=== PATIENT | male | born 1960 | race Caucasian/White ===

== ENCOUNTER 2016-11-10 19:30 | Inpatient (IN) | payer MEDICARE, MEDICAID ==
[~2016-11-10] VITALS: Ht 157.5 cm; Wt 60.9 kg
[~2016-11-10 19:30] MED LIST: ACET-784 PR; ALBU0.212 NEB; CALC-6 GT; DIAZ5 GT; DSSL GT; FOLI1TAB24 GT; GLYB2.5T5 GT; LEVE100S7 GT; METO25 GT; MIRALAX GT; OMEP20 GT; PROMVCC5L GT; SENN8.6T90 GT
[2016-11-10 19:57] LABS: GLUCOSE,POINT OF CARE 112 MG/DL (70-110)
[2016-11-10] MEDS ORDERED: VITAD1000 GT (20:24)
[2016-11-10] MEDS ORDERED: [UNRECOGNIZED DRUG - CODE] PO (20:24)
[2016-11-10] MEDS ORDERED: ESOM20CA31 GT (20:24)
[2016-11-10] MEDS ORDERED: ACETAMINOPHEN 650 MG RECTAL SUPPOSITORY PR ONE ×2 (21:15)
[2016-11-10] MEDS ORDERED: SODIUM CHLORIDE 0.9% 1,000 ML IV ONE (21:30)
[2016-11-10 21:46] LABS: EOSINOPHILS % (AUTO) 0.1 % (1.0-6.0); HEMOGLOBIN 14.9 g/dL (13.5-17.5); LYMPHOCYTES # (AUTO) 0.4 K/uL (1.0-4.8); MEAN CORPUSCULAR HEMOGLOBIN 32.5 pg (26.0-34.0); MEAN CORPUSCULAR VOLUME 98 fL (80-100); MONOCYTES # (AUTO) 0.7 K/uL (0.1-1.0); MONOCYTES % (AUTO) 10.6 % (2.0-9.0); NEUTROPHILS # (AUTO) 5.3 K/uL (1.8-7.7); NEUTROPHILS % (AUTO) 83.3 % (40.0-70.0); PLATELET COUNT (AUTO) 131 K/uL (150-450); RED BLOOD CELL COUNT(AUTO) 4.57 MIL/uL (4.50-5.90); RED CELL DISTRIBUTION WIDTH 12.9 % (11.5-14.5); WHITE BLOOD COUNT (AUTO) 6.4 K/uL (4.5-11.0)
[2016-11-10 21:54] LABS: ANION GAP 9 mmol/L (8-16); CALCIUM, TOTAL 9.3 mg/dL (8.8-10.5); CARBON DIOXIDE 31 mmol/L (22-29); CHLORIDE 99 mmol/L (98-107); CREATININE 1.03 mg/dL (0.60-1.30); GLOMERULAR FILTR. RATE CALC > 60 mL/min (>60); POTASSIUM 3.2 mmol/L (3.5-5.1); SODIUM SERUM 139 mmol/L (136-145); UREA NITROGEN, BLOOD 13 mg/dL (7-18)
[2016-11-10] MEDS ORDERED: IPRATROPIUM BROMIDE 0.5 MG/2.5 ML NEB SOLUTION NEB ONE (22:00)
[2016-11-10] MEDS ORDERED: ACETAMINOPHEN 1000 MG/ISO-OSM 100 ML IV ONE (22:00)
[2016-11-10] MEDS ORDERED: ALBUTEROL SULFATE 5 MG/ML 20 ML NEB SOLN [BULK] NEB ONE (22:00)
[2016-11-10] MEDS ORDERED: CefTRIAXone 1 GM/DEXTROSE 50 ML IV ONE (22:00)
[2016-11-10 22:02] LABS: LACTIC ACID 1.3 mmol/L (0.4-2.0)
[2016-11-10 22:09] LABS: ALANINE AMINOTRANSFERASE 35 U/L (12-78); ALBUMIN 3.5 g/dL (3.4-5.0); ASPARTATE AMINOTRANSFERASE 35 U/L (15-37); BILIRUBIN,TOTAL 0.6 mg/dL (0.1-1.0); TOTAL PROTEIN, SERUM 7.5 g/dL (6.4-8.2)
[2016-11-10 22:52] LABS: B-TYPE NATRIURETIC PEPTIDE 17 pg/mL (0-100)
[2016-11-10 23:11] LABS: INFLUENZA TYPE B POSITIVE FOR TYPE B (NEGATIVE)
[2016-11-10 23:20] LABS: APPEARANCE,URINE CLEAR (CLEAR); GLUCOSE, URINE (UA) NEGATIVE (NEGATIVE); KETONES,URINE TRACE mg/dL (NEGATIVE); LEUKOCYTE ESTERASE ,URINE NEGATIVE (NEGATIVE); OCCULT BLOOD,URINE NEGATIVE (NEGATIVE); PH,URINE 6.5 (5.0-8.0); PROTEIN,URINE POS 1+ (NEGATIVE)
[2016-11-10 23:24] LABS: ADD UA MICROSCOPIC NO
[2016-11-10] MEDS ORDERED: POTASSIUM CHLORIDE 10% 40 MEQ/30 ML LIQUID UDCUP PEG ONE (23:30)
[2016-11-10] MEDS ORDERED: ONDANSETRON HCL 4 MG/2 ML VIAL IVP PRN (23:30)
[2016-11-10] MEDS ORDERED: OSELTAMIVIR PHOSPHATE 75 MG CAPSULE PEG SCH (23:30)
[2016-11-10] MEDS ORDERED: 0.9% SODIUM CHLORIDE 10 ML SYRINGE IVP PRN (23:30)
[2016-11-10] MEDS ORDERED: VANCOMYCIN HCL 1 GM/D5% WATER 200 ML IV ONE (23:30)
[2016-11-10] MEDS ORDERED: ACETAMINOPHEN 325 MG TABLET PO PRN (23:30)
[2016-11-10] MEDS ORDERED: OSELTAMIVIR PHOSPHATE 6 MG/ML 5 ML SUSPENSION ORAL.SYG PEG ONE (23:45)
[2016-11-10] MEDS ORDERED: OSELTAMIVIR PHOSPHATE 6 MG/ML 5 ML SUSPENSION ORAL.SYG PEG SCH (23:45)
[2016-11-10] MEDS ORDERED: OXYGEN THERAPY IH SCH (23:45)
[2016-11-11] MEDS ORDERED: OxyCODONE HCL/ACETAMINOPHEN 5-325 MG TABLET GT PRN (00:30)
[2016-11-11] MEDS ORDERED: MAGNESIUM SULFATE 4 GM/WATER 100 ML IV PRN (00:30)
[2016-11-11] MEDS ORDERED: ONDANSETRON HCL 4 MG/2 ML VIAL IVP PRN (00:30)
[2016-11-11] MEDS ORDERED: IPRATROPIUM BROMIDE 0.5 MG/2.5 ML NEB SOLUTION NEB PRN (00:30)
[2016-11-11] MEDS ORDERED: POTASSIUM CHLORIDE 20 MEQ ER TABLET PO PRN ×2 (00:30)
[2016-11-11] MEDS ORDERED: ACETAMINOPHEN 650 MG/20.3 ML SOLUTION UDCUP GT PRN (00:30)
[2016-11-11] MEDS ORDERED: MAGNESIUM HYDROXIDE SUSPENSION 30 ML UDCUP PO PRN (00:30)
[2016-11-11] MEDS ORDERED: MAGNESIUM OXIDE 400 MG TABLET PO PRN (00:30)
[2016-11-11] MEDS ORDERED: ZOLPIDEM TARTRATE 5 MG TABLET GT PRN (00:30)
[2016-11-11] MEDS ORDERED: BISACODYL 10 MG RECTAL RECTAL SUPPOSITORY PR PRN (00:30)
[2016-11-11] MEDS ORDERED: ALBUTEROL SULFATE 2.5 MG/0.5 ML NEB SOLUTION NEB PRN (00:30)
[2016-11-11] MEDS ORDERED: MAGNESIUM SULFATE 2 GM in DEXTROSE 5%-WATER 50 ML IV PRN (00:30)
[2016-11-11] MEDS ORDERED: MAGNESIUM HYDROXIDE SUSPENSION 30 ML UDCUP GT PRN (01:07)
[2016-11-11] MEDS ORDERED: MAGNESIUM GLUCONATE 1 GM/5 ML LIQUID 22 ML UDCUP GT PRN (01:15)
[2016-11-11] MEDS ORDERED: POTASSIUM CHLORIDE 10% 40 MEQ/30 ML LIQUID UDCUP GT PRN (01:15)
[2016-11-11 02:46] VITALS: BP 143/85
[2016-11-11] MEDS ORDERED: IPRATROPIUM BROMIDE 0.5 MG/2.5 ML NEB SOLUTION NEB SCH (03:00)
[2016-11-11] MEDS ORDERED: ALBUTEROL SULFATE 2.5 MG/0.5 ML NEB SOLUTION NEB SCH (03:00)
[2016-11-11 05:02] LABS: GLUCOSE,POINT OF CARE 99 MG/DL (70-110)
[2016-11-11] MEDS ORDERED: VANCOMYCIN HCL 1.25 GM in DEXTROSE 5%-WATER 250 ML IV SCH (08:00)
[2016-11-11 08:02] VITALS: BP 141/79
[2016-11-11] MEDS: OSELTAMIVIR PHOSPHATE 75 MG CAPSULE GT SCH ×2 (09:42→21:15)
[2016-11-11] MEDS: LANSOPRAZOLE 30 MG SOLUBLE TABLET GT SCH (09:42)
[2016-11-11] MEDS: HEPARIN SODIUM,PORCINE 5,000 UNITS/ML VIAL SQ SCH ×2 (09:42→21:15)
[2016-11-11 15:18] VITALS: BP 146/80
[2016-11-11 17:32] LABS: GLUCOSE,POINT OF CARE 109 MG/DL (70-110)
[2016-11-11 19:54] VITALS: BP 140/88
[2016-11-11] MEDS: VANCOMYCIN HCL 1 GM/D5% WATER 200 ML IV SCH (20:20)
[2016-11-11] MEDS ORDERED: SODIUM CHLORIDE 0.9% IRRIG BTL 1,000 ML IRRIG ONE (21:39)
[2016-11-11] MEDS: POTASSIUM CHLORIDE 10% 40 MEQ/30 ML LIQUID UDCUP GT PRN (22:15)
[2016-11-11] MEDS: CefTRIAXone 1 GM/DEXTROSE 50 ML IV SCH (22:59)
[2016-11-11 23:50] VITALS: BP 149/91
[2016-11-12] VITALS (9 sets, daily range): BP systolic 112–166; BP diastolic 75–97
[2016-11-12] MEDS ORDERED: VANCOMYCIN HCL 1 GM/D5% WATER 200 ML IV SCH (07:00)
[2016-11-12 08:10] LABS: BASOPHILS % (AUTO) 0.3 % (0.0-2.0); EOSINOPHILS % (AUTO) 0 % (1.0-6.0); HEMATOCRIT 46.4 % (41-53); HEMOGLOBIN 15.5 g/dL (13.5-17.5); LYMPHOCYTES # (AUTO) 1.3 K/uL (1.0-4.8); MEAN CORPUSCULAR HEMOGLOBIN 32.8 pg (26.0-34.0); MEAN CORPUSCULAR HGB CONC 33.4 G/dL (31.0-37.0); MEAN CORPUSCULAR VOLUME 98 fL (80-100); MONOCYTES # (AUTO) 0.7 K/uL (0.1-1.0); MONOCYTES % (AUTO) 7.6 % (2.0-9.0); NEUTROPHILS # (AUTO) 7.1 K/uL (1.8-7.7); NEUTROPHILS % (AUTO) 78.1 % (40.0-70.0); PLATELET COUNT (AUTO) 124 K/uL (150-450); RED BLOOD CELL COUNT(AUTO) 4.73 MIL/uL (4.50-5.90); RED CELL DISTRIBUTION WIDTH 13.1 % (11.5-14.5); WHITE BLOOD COUNT (AUTO) 9.1 K/uL (4.5-11.0)
[2016-11-12 08:28] LABS: HEMOGLOBIN A1C 5.4 % (4.5-6.2)
[2016-11-12 08:37] LABS: ALANINE AMINOTRANSFERASE 30 U/L (12-78); ALBUMIN 3.1 g/dL (3.4-5.0); ANION GAP 8 mmol/L (8-16); ASPARTATE AMINOTRANSFERASE 42 U/L (15-37); BILIRUBIN,TOTAL 0.5 mg/dL (0.1-1.0); CALCIUM, TOTAL 8.9 mg/dL (8.8-10.5); CARBON DIOXIDE 30 mmol/L (22-29); CHLORIDE 106 mmol/L (98-107); CREATININE 0.87 mg/dL (0.60-1.30); GLOMERULAR FILTR. RATE CALC > 60 mL/min (>60); PHOSPHORUS 2.9 mg/dL (2.5-4.9); POTASSIUM 3.8 mmol/L (3.5-5.1); SODIUM SERUM 144 mmol/L (136-145); TOTAL PROTEIN, SERUM 7.5 g/dL (6.4-8.2); UREA NITROGEN, BLOOD 11 mg/dL (7-18)
[2016-11-12] MEDS: VANCOMYCIN HCL 1 GM/D5% WATER 200 ML IV SCH ×2 (08:57→20:40)
[2016-11-12] MEDS: HEPARIN SODIUM,PORCINE 5,000 UNITS/ML VIAL SQ SCH ×2 (08:57→20:40)
[2016-11-12] MEDS: LANSOPRAZOLE 30 MG SOLUBLE TABLET GT SCH (08:57)
[2016-11-12] MEDS: OSELTAMIVIR PHOSPHATE 75 MG CAPSULE GT SCH ×2 (08:57→20:40)
[2016-11-12 11:52] LABS: GLUCOSE,POINT OF CARE 134 MG/DL (70-110)
[2016-11-12] MEDS: AMINO ACIDS/PROTEIN HYDROLYS 30 ML TUBE PO SCH (12:32)
[2016-11-12 18:52] LABS: GLUCOSE,POINT OF CARE 153 MG/DL (70-110)
[2016-11-12] MEDS: CefTRIAXone 1 GM/DEXTROSE 50 ML IV SCH (22:39)
[2016-11-12] MEDS ORDERED: PHENYLEPHRINE/PROMETH/CODEINE 5 ML ORAL.SYG GT PRN (23:45)
[2016-11-13 00:11] LABS: GLUCOSE,POINT OF CARE 131 MG/DL (70-110)
[2016-11-13 05:30] VITALS: BP 157/86
[2016-11-13 06:23] LABS: EOSINOPHILS % (AUTO) 0.3 % (1.0-6.0); HEMATOCRIT 43.8 % (41-53); HEMOGLOBIN 14.7 g/dL (13.5-17.5); LYMPHOCYTES # (AUTO) 1.3 K/uL (1.0-4.8); LYMPHOCYTES % (AUTO) 24.9 % (22.0-44.0); MEAN CORPUSCULAR HGB CONC 33.6 G/dL (31.0-37.0); MEAN CORPUSCULAR VOLUME 98 fL (80-100); MONOCYTES # (AUTO) 0.5 K/uL (0.1-1.0); MONOCYTES % (AUTO) 9.1 % (2.0-9.0); NEUTROPHILS # (AUTO) 3.5 K/uL (1.8-7.7); NEUTROPHILS % (AUTO) 65.7 % (40.0-70.0); PLATELET COUNT (AUTO) 125 K/uL (150-450); RED BLOOD CELL COUNT(AUTO) 4.46 MIL/uL (4.50-5.90); RED CELL DISTRIBUTION WIDTH 13.2 % (11.5-14.5); WHITE BLOOD COUNT (AUTO) 5.3 K/uL (4.5-11.0)
[2016-11-13 06:46] LABS: GLUCOSE,POINT OF CARE 142 MG/DL (70-110)
[2016-11-13 07:04] LABS: ALANINE AMINOTRANSFERASE 35 U/L (12-78); ANION GAP 6 mmol/L (8-16); ASPARTATE AMINOTRANSFERASE 39 U/L (15-37); BILIRUBIN,TOTAL 0.4 mg/dL (0.1-1.0); CALCIUM, TOTAL 9.2 mg/dL (8.8-10.5); CARBON DIOXIDE 32 mmol/L (22-29); CHLORIDE 109 mmol/L (98-107); GLOMERULAR FILTR. RATE CALC > 60 mL/min (>60); POTASSIUM 3.2 mmol/L (3.5-5.1); SODIUM SERUM 147 mmol/L (136-145); TOTAL PROTEIN, SERUM 7.3 g/dL (6.4-8.2); UREA NITROGEN, BLOOD 10 mg/dL (7-18)
[2016-11-13 07:16] VITALS: BP 123/87
[2016-11-13] MEDS: VANCOMYCIN HCL 1 GM/D5% WATER 200 ML IV SCH ×2 (08:14→20:21)
[2016-11-13] MEDS: LevETIRAcetam 100 MG/ML 5 ML SOLUTION UDCUP GT SCH ×2 (09:06→20:22)
[2016-11-13] MEDS: METOPROLOL TARTRATE 25 MG TABLET GT SCH ×2 (09:06→20:22)
[2016-11-13] MEDS: POLYETHYLENE GLYCOL 3350 17 GM PACKET GT SCH (09:07)
[2016-11-13] MEDS: OSELTAMIVIR PHOSPHATE 75 MG CAPSULE GT SCH ×2 (09:07→20:22)
[2016-11-13] MEDS: CHOLECALCIFEROL (VIT D3) 2,000 UNITS TABLET GT SCH (09:07)
[2016-11-13] MEDS: LANSOPRAZOLE 30 MG SOLUBLE TABLET GT SCH (09:07)
[2016-11-13] MEDS: SENNA 187 MG TABLET GT SCH (09:07)
[2016-11-13] MEDS: HEPARIN SODIUM,PORCINE 5,000 UNITS/ML VIAL SQ SCH ×2 (09:09→20:23)
[2016-11-13 11:16] VITALS: BP 144/69
[2016-11-13 12:22] LABS: GLUCOSE,POINT OF CARE 123 MG/DL (70-110)
[2016-11-13] MEDS: POTASSIUM CHLORIDE 10% 40 MEQ/30 ML LIQUID UDCUP GT PRN (12:50)
[2016-11-13] MEDS: AMINO ACIDS/PROTEIN HYDROLYS 30 ML TUBE PO SCH (12:51)
[2016-11-13 15:10] VITALS: BP 119/78
[2016-11-13 18:12] LABS: GLUCOSE,POINT OF CARE 111 MG/DL (70-110)
[2016-11-13 20:15] VITALS: BP 139/71
[2016-11-13] MEDS: CefTRIAXone 1 GM/DEXTROSE 50 ML IV SCH (22:49)
[2016-11-13 23:37] VITALS: BP 122/65
[2016-11-14 02:21] LABS: GLUCOSE,POINT OF CARE 123 MG/DL (70-110)
[2016-11-14 06:27] LABS: GLUCOSE,POINT OF CARE 106 MG/DL (70-110)
[2016-11-14 06:34] VITALS: BP 124/82
[2016-11-14 07:10] VITALS: BP_SYST 100; BP_SYST 126; BP_DIAS 49; BP_DIAS 59
[2016-11-14 08:09] LABS: ALANINE AMINOTRANSFERASE 88 U/L (12-78); ALBUMIN 2.9 g/dL (3.4-5.0); ANION GAP 6 mmol/L (8-16); ASPARTATE AMINOTRANSFERASE 130 U/L (15-37); BILIRUBIN,TOTAL 0.2 mg/dL (0.1-1.0); CALCIUM, TOTAL 9.6 mg/dL (8.8-10.5); CARBON DIOXIDE 32 mmol/L (22-29); CHLORIDE 109 mmol/L (98-107); CREATININE 0.77 mg/dL (0.60-1.30); GLOMERULAR FILTR. RATE CALC > 60 mL/min (>60); POTASSIUM 3.8 mmol/L (3.5-5.1); SODIUM SERUM 147 mmol/L (136-145); TOTAL PROTEIN, SERUM 7.2 g/dL (6.4-8.2); UREA NITROGEN, BLOOD 13 mg/dL (7-18)
[2016-11-14] MEDS: OSELTAMIVIR PHOSPHATE 75 MG CAPSULE GT SCH ×2 (08:41→20:51)
[2016-11-14] MEDS: HEPARIN SODIUM,PORCINE 5,000 UNITS/ML VIAL SQ SCH ×2 (08:42→20:50)
[2016-11-14] MEDS: METOPROLOL TARTRATE 25 MG TABLET GT SCH ×2 (08:42→20:51)
[2016-11-14] MEDS: POLYETHYLENE GLYCOL 3350 17 GM PACKET GT SCH (08:42)
[2016-11-14] MEDS: LevETIRAcetam 100 MG/ML 5 ML SOLUTION UDCUP GT SCH ×2 (08:42→20:51)
[2016-11-14] MEDS: SENNA 187 MG TABLET GT SCH (08:42)
[2016-11-14] MEDS: LANSOPRAZOLE 30 MG SOLUBLE TABLET GT SCH (08:42)
[2016-11-14] MEDS: VANCOMYCIN HCL 1 GM/D5% WATER 200 ML IV SCH ×2 (08:53→19:58)
[2016-11-14 10:55] LABS: HEMATOCRIT 39.8 % (41-53); HEMOGLOBIN 13.8 g/dL (13.5-17.5); MEAN CORPUSCULAR HEMOGLOBIN 33.5 pg (26.0-34.0); MEAN CORPUSCULAR HGB CONC 34.8 G/dL (31.0-37.0); MEAN CORPUSCULAR VOLUME 96 fL (80-100); PLATELET COUNT (AUTO) 109 K/uL (150-450); RED BLOOD CELL COUNT(AUTO) 4.13 MIL/uL (4.50-5.90); RED CELL DISTRIBUTION WIDTH 12.7 % (11.5-14.5)
[2016-11-14 10:56] LABS: WHITE BLOOD COUNT (AUTO) 6.1 K/uL (4.5-11.0)
[2016-11-14 11:20] VITALS: BP 144/87
[2016-11-14 11:31] LABS: GLUCOSE,POINT OF CARE 125 MG/DL (70-110)
[2016-11-14 11:35] LABS: BAND NEUTROPHILS % (MANUAL) 15 % (1-5); LYMPHOCYTES % (MANUAL) 13 % (22-44); RBC MORPHOLOGY COMMENT NORMAL RBC MORPH; TOTAL CELLS COUNTED 100
[2016-11-14] MEDS: CHOLECALCIFEROL (VIT D3) 2,000 UNITS TABLET GT SCH (11:45)
[2016-11-14] MEDS: AMINO ACIDS/PROTEIN HYDROLYS 30 ML TUBE PO SCH (13:43)
[2016-11-14 15:16] VITALS: BP 117/68
[2016-11-14 17:42] LABS: GLUCOSE,POINT OF CARE 70 MG/DL (70-110)
[2016-11-14 20:20] VITALS: BP 170/86
[2016-11-14] MEDS: CefTRIAXone 1 GM/DEXTROSE 50 ML IV SCH (23:00)
[2016-11-14 23:23] VITALS: BP 126/77
[2016-11-15] VITALS (7 sets, daily range): BP systolic 136–180; BP diastolic 76–102
[2016-11-15] MEDS: METOPROLOL TARTRATE 25 MG TABLET GT SCH ×2 (05:08→20:37)
[2016-11-15 06:41] LABS: GLUCOSE,POINT OF CARE 95 MG/DL (70-110)
[2016-11-15 06:41] LABS: GLUCOSE,POINT OF CARE 129 MG/DL (70-110)
[2016-11-15] MEDS: VANCOMYCIN HCL 1 GM/D5% WATER 200 ML IV SCH ×2 (07:25→21:23)
[2016-11-15 08:32] LABS: BASOPHILS # (AUTO) 0.02 K/uL (0.00-0.20); BASOPHILS % (AUTO) 0.3 % (0.0-2.0); EOSINOPHILS # (AUTO) 0.11 K/uL (0.00-0.70); EOSINOPHILS % (AUTO) 1.95 % (1.0-6.0); HEMOGLOBIN 14.2 g/dL (13.5-17.5); LYMPHOCYTES # (AUTO) 1.5 K/uL (1.0-4.8); MEAN CORPUSCULAR HEMOGLOBIN 32.9 pg (26.0-34.0); MEAN CORPUSCULAR HGB CONC 33.9 G/dL (31.0-37.0); MEAN CORPUSCULAR VOLUME 97 fL (80-100); MONOCYTES # (AUTO) 0.7 K/uL (0.1-1.0); MONOCYTES % (AUTO) 11.4 % (2.0-9.0); NEUTROPHILS # (AUTO) 3.5 K/uL (1.8-7.7); NEUTROPHILS % (AUTO) 60.3 % (40.0-70.0); PLATELET COUNT (AUTO) 121 K/uL (150-450); RED BLOOD CELL COUNT(AUTO) 4.33 MIL/uL (4.50-5.90); RED CELL DISTRIBUTION WIDTH 12.6 % (11.5-14.5); WHITE BLOOD COUNT (AUTO) 5.8 K/uL (4.5-11.0)
[2016-11-15] MEDS: CHOLECALCIFEROL (VIT D3) 2,000 UNITS TABLET GT SCH (08:39)
[2016-11-15] MEDS: POLYETHYLENE GLYCOL 3350 17 GM PACKET GT SCH (08:39)
[2016-11-15] MEDS: OSELTAMIVIR PHOSPHATE 75 MG CAPSULE GT SCH ×2 (08:39→21:59)
[2016-11-15] MEDS: LevETIRAcetam 100 MG/ML 5 ML SOLUTION UDCUP GT SCH ×2 (08:39→20:37)
[2016-11-15] MEDS: LANSOPRAZOLE 30 MG SOLUBLE TABLET GT SCH (08:39)
[2016-11-15] MEDS: HEPARIN SODIUM,PORCINE 5,000 UNITS/ML VIAL SQ SCH ×2 (08:40→22:00)
[2016-11-15 08:41] LABS: ANION GAP 7 mmol/L (8-16); CALCIUM, TOTAL 9.7 mg/dL (8.8-10.5); CARBON DIOXIDE 35 mmol/L (22-29); CHLORIDE 108 mmol/L (98-107); CREATININE 0.83 mg/dL (0.60-1.30); GLOMERULAR FILTR. RATE CALC > 60 mL/min (>60); POTASSIUM 3.1 mmol/L (3.5-5.1); SODIUM SERUM 150 mmol/L (136-145); UREA NITROGEN, BLOOD 14 mg/dL (7-18)
[2016-11-15 08:47] LABS: ALANINE AMINOTRANSFERASE 84 U/L (12-78); ASPARTATE AMINOTRANSFERASE 80 U/L (15-37); BILIRUBIN,TOTAL 0.3 mg/dL (0.1-1.0); TOTAL PROTEIN, SERUM 7.2 g/dL (6.4-8.2)
[2016-11-15] MEDS: SENNA 187 MG TABLET GT SCH (09:00)
[2016-11-15] MEDS: AMINO ACIDS/PROTEIN HYDROLYS 30 ML TUBE PO SCH (12:17)
[2016-11-15 12:52] LABS: GLUCOSE,POINT OF CARE 83 MG/DL (70-110)
[2016-11-15] MEDS: POTASSIUM CHLORIDE 10% 40 MEQ/30 ML LIQUID UDCUP GT PRN (13:52)
[2016-11-15 17:51] LABS: GLUCOSE,POINT OF CARE 89 MG/DL (70-110)
[2016-11-15] MEDS ORDERED: SODIUM CHLORIDE 0.9% 250 ML IV ONE (22:05)
[2016-11-15] MEDS: CefTRIAXone 1 GM/DEXTROSE 50 ML IV SCH (23:14)
[2016-11-16] MEDS: POTASSIUM CHLORIDE 10% 40 MEQ/30 ML LIQUID UDCUP GT PRN (03:07)
[2016-11-16 04:28] VITALS: BP 135/75
[2016-11-16 07:28] VITALS: BP 167/75
[2016-11-16 07:33] LABS: BASOPHILS # (AUTO) 0.02 K/uL (0.00-0.20); BASOPHILS % (AUTO) 0.2 % (0.0-2.0); EOSINOPHILS # (AUTO) 0.14 K/uL (0.00-0.70); EOSINOPHILS % (AUTO) 1.44 % (1.0-6.0); HEMATOCRIT 43.5 % (41-53); HEMOGLOBIN 14.5 g/dL (13.5-17.5); LYMPHOCYTES # (AUTO) 1.4 K/uL (1.0-4.8); LYMPHOCYTES % (AUTO) 14.2 % (22.0-44.0); MEAN CORPUSCULAR HEMOGLOBIN 32.6 pg (26.0-34.0); MEAN CORPUSCULAR HGB CONC 33.3 G/dL (31.0-37.0); MEAN CORPUSCULAR VOLUME 98 fL (80-100); MONOCYTES # (AUTO) 0.8 K/uL (0.1-1.0); MONOCYTES % (AUTO) 8.6 % (2.0-9.0); NEUTROPHILS # (AUTO) 7.4 K/uL (1.8-7.7); NEUTROPHILS % (AUTO) 75.6 % (40.0-70.0); PLATELET COUNT (AUTO) 144 K/uL (150-450); RED BLOOD CELL COUNT(AUTO) 4.44 MIL/uL (4.50-5.90); RED CELL DISTRIBUTION WIDTH 12.7 % (11.5-14.5); WHITE BLOOD COUNT (AUTO) 9.7 K/uL (4.5-11.0)
[2016-11-16 08:00] LABS: ALANINE AMINOTRANSFERASE 71 U/L (12-78); ALBUMIN 3.2 g/dL (3.4-5.0); ANION GAP 6 mmol/L (8-16); ASPARTATE AMINOTRANSFERASE 47 U/L (15-37); BILIRUBIN,TOTAL 0.3 mg/dL (0.1-1.0); CARBON DIOXIDE 34 mmol/L (22-29); CHLORIDE 110 mmol/L (98-107); CREATININE 0.87 mg/dL (0.60-1.30); GLOMERULAR FILTR. RATE CALC > 60 mL/min (>60); POTASSIUM 3.7 mmol/L (3.5-5.1); SODIUM SERUM 150 mmol/L (136-145); TOTAL PROTEIN, SERUM 7.7 g/dL (6.4-8.2); UREA NITROGEN, BLOOD 13 mg/dL (7-18)
[2016-11-16] MEDS: VANCOMYCIN HCL 1 GM/D5% WATER 200 ML IV SCH ×2 (08:03→20:45)
[2016-11-16] MEDS: LANSOPRAZOLE 30 MG SOLUBLE TABLET GT SCH (09:13)
[2016-11-16] MEDS: CHOLECALCIFEROL (VIT D3) 2,000 UNITS TABLET GT SCH (09:13)
[2016-11-16] MEDS: POLYETHYLENE GLYCOL 3350 17 GM PACKET GT SCH (09:14)
[2016-11-16] MEDS: HEPARIN SODIUM,PORCINE 5,000 UNITS/ML VIAL SQ SCH ×2 (09:14→20:45)
[2016-11-16] MEDS: METOPROLOL TARTRATE 25 MG TABLET GT SCH ×2 (09:14→20:46)
[2016-11-16] MEDS: SENNA 187 MG TABLET GT SCH (09:14)
[2016-11-16] MEDS: LevETIRAcetam 100 MG/ML 5 ML SOLUTION UDCUP GT SCH ×2 (09:15→20:45)
[2016-11-16] MEDS: DEXTROSE 5%-WATER 1,000 ML IV SCH (09:30)
[2016-11-16 11:45] VITALS: BP 168/93
[2016-11-16] MEDS: AMINO ACIDS/PROTEIN HYDROLYS 30 ML TUBE PO SCH (12:26)
[2016-11-16 16:12] VITALS: BP 154/70
[2016-11-16 18:03] LABS: ANION GAP 7 mmol/L (8-16); CALCIUM, TOTAL 10.2 mg/dL (8.8-10.5); CARBON DIOXIDE 32 mmol/L (22-29); CHLORIDE 111 mmol/L (98-107); CREATININE 0.93 mg/dL (0.60-1.30); GLOMERULAR FILTR. RATE CALC > 60 mL/min (>60); POTASSIUM 4.1 mmol/L (3.5-5.1); SODIUM SERUM 150 mmol/L (136-145); UREA NITROGEN, BLOOD 15 mg/dL (7-18)
[2016-11-16 19:51] VITALS: BP 126/58
[2016-11-16] MEDS: CefTRIAXone 1 GM/DEXTROSE 50 ML IV SCH (22:05)
[2016-11-16 23:37] VITALS: BP 137/66
[2016-11-17] MEDS: DEXTROSE 5%-WATER 1,000 ML IV SCH ×2 (00:06→12:31)
[2016-11-17 04:45] VITALS: BP 131/69
[2016-11-17 07:57] VITALS: BP 129/76
[2016-11-17] MEDS: VANCOMYCIN HCL 1 GM/D5% WATER 200 ML IV SCH (08:04)
[2016-11-17 09:48] LABS: HEMATOCRIT 41.3 % (41-53); HEMOGLOBIN 13.9 g/dL (13.5-17.5); MEAN CORPUSCULAR HEMOGLOBIN 32.6 pg (26.0-34.0); MEAN CORPUSCULAR HGB CONC 33.7 G/dL (31.0-37.0); MEAN CORPUSCULAR VOLUME 97 fL (80-100); PLATELET COUNT (AUTO) 128 K/uL (150-450); RED BLOOD CELL COUNT(AUTO) 4.27 MIL/uL (4.50-5.90); RED CELL DISTRIBUTION WIDTH 12.6 % (11.5-14.5)
[2016-11-17 09:50] LABS: WHITE BLOOD COUNT (AUTO) 15.1 K/uL (4.5-11.0)
[2016-11-17] MEDS: LevETIRAcetam 100 MG/ML 5 ML SOLUTION UDCUP GT SCH ×2 (10:06→20:52)
[2016-11-17] MEDS: METOPROLOL TARTRATE 25 MG TABLET GT SCH ×2 (10:06→20:52)
[2016-11-17] MEDS: POLYETHYLENE GLYCOL 3350 17 GM PACKET GT SCH (10:07)
[2016-11-17] MEDS: LANSOPRAZOLE 30 MG SOLUBLE TABLET GT SCH (10:07)
[2016-11-17] MEDS: SENNA 187 MG TABLET GT SCH (10:07)
[2016-11-17] MEDS: CHOLECALCIFEROL (VIT D3) 2,000 UNITS TABLET GT SCH (10:08)
[2016-11-17] MEDS: HEPARIN SODIUM,PORCINE 5,000 UNITS/ML VIAL SQ SCH ×2 (10:08→20:52)
[2016-11-17 10:24] LABS: BAND NEUTROPHILS % (MANUAL) 4 % (1-5); LYMPHOCYTES % (MANUAL) 17 % (22-44); TOTAL CELLS COUNTED 100
[2016-11-17 10:25] LABS: ALANINE AMINOTRANSFERASE 65 U/L (12-78); ALBUMIN 2.9 g/dL (3.4-5.0); ANION GAP 12 mmol/L (8-16); ASPARTATE AMINOTRANSFERASE 62 U/L (15-37); BILIRUBIN,TOTAL 0.4 mg/dL (0.1-1.0); CALCIUM, TOTAL 9.5 mg/dL (8.8-10.5); CARBON DIOXIDE 26 mmol/L (22-29); CHLORIDE 108 mmol/L (98-107); CREATININE 0.91 mg/dL (0.60-1.30); GLOMERULAR FILTR. RATE CALC > 60 mL/min (>60); POTASSIUM 4.1 mmol/L (3.5-5.1); RBC MORPHOLOGY COMMENT NORMAL RBC MORPH; SODIUM SERUM 146 mmol/L (136-145); TOTAL PROTEIN, SERUM 7.1 g/dL (6.4-8.2); UREA NITROGEN, BLOOD 17 mg/dL (7-18)
[2016-11-17 11:57] LABS: GLUCOSE,POINT OF CARE 127 MG/DL (70-110)
[2016-11-17 11:59] VITALS: BP 150/69
[2016-11-17] MEDS: AMINO ACIDS/PROTEIN HYDROLYS 30 ML TUBE PO SCH (12:27)
[2016-11-17] MEDS ORDERED: DIAZ10 GT (14:20)
[2016-11-17] MEDS ORDERED: 0.9% SODIUM CHLORIDE 10 ML SYRINGE IVP PRN (14:30)
[2016-11-17 15:37] VITALS: BP 161/79
[2016-11-17 18:07] LABS: GLUCOSE,POINT OF CARE 109 MG/DL (70-110)
[2016-11-17 19:43] VITALS: BP 125/87
[2016-11-17] MEDS: CefTAZidime PENTAHYDRATE 2 GM in DEXTROSE 5%-WATER 50 ML IV SCH (22:05)
[2016-11-18] VITALS (8 sets, daily range): BP systolic 136–175; BP diastolic 66–120
[2016-11-18] MEDS: CefTAZidime PENTAHYDRATE 2 GM in DEXTROSE 5%-WATER 50 ML IV SCH ×3 (04:48→19:57)
[2016-11-18] MEDS: DEXTROSE 5%-WATER 1,000 ML IV SCH ×2 (04:48→19:58)
[2016-11-18 06:43] LABS: BASOPHILS % (AUTO) 0.3 % (0.0-2.0); HEMATOCRIT 44.2 % (41-53); HEMOGLOBIN 14.8 g/dL (13.5-17.5); LYMPHOCYTES # (AUTO) 1.7 K/uL (1.0-4.8); LYMPHOCYTES % (AUTO) 18.4 % (22.0-44.0); MEAN CORPUSCULAR HEMOGLOBIN 32.6 pg (26.0-34.0); MEAN CORPUSCULAR HGB CONC 33.5 G/dL (31.0-37.0); MEAN CORPUSCULAR VOLUME 97 fL (80-100); MONOCYTES # (AUTO) 0.9 K/uL (0.1-1.0); MONOCYTES % (AUTO) 10.1 % (2.0-9.0); NEUTROPHILS # (AUTO) 6.3 K/uL (1.8-7.7); NEUTROPHILS % (AUTO) 68.2 % (40.0-70.0); PLATELET COUNT (AUTO) 199 K/uL (150-450); RED BLOOD CELL COUNT(AUTO) 4.55 MIL/uL (4.50-5.90); RED CELL DISTRIBUTION WIDTH 12.7 % (11.5-14.5); WHITE BLOOD COUNT (AUTO) 9.2 K/uL (4.5-11.0)
[2016-11-18 07:15] LABS: ALANINE AMINOTRANSFERASE 60 U/L (12-78); ALBUMIN 3.1 g/dL (3.4-5.0); ANION GAP 9 mmol/L (8-16); ASPARTATE AMINOTRANSFERASE 40 U/L (15-37); BILIRUBIN,TOTAL 0.4 mg/dL (0.1-1.0); CALCIUM, TOTAL 9.2 mg/dL (8.8-10.5); CARBON DIOXIDE 30 mmol/L (22-29); CHLORIDE 104 mmol/L (98-107); CREATININE 0.92 mg/dL (0.60-1.30); GLOMERULAR FILTR. RATE CALC > 60 mL/min (>60); SODIUM SERUM 143 mmol/L (136-145); TOTAL PROTEIN, SERUM 7.5 g/dL (6.4-8.2); UREA NITROGEN, BLOOD 13 mg/dL (7-18)
[2016-11-18 07:56] LABS: POTASSIUM 2.9 mmol/L (3.5-5.1)
[2016-11-18] MEDS: METOPROLOL TARTRATE 25 MG TABLET GT SCH ×2 (08:52→19:57)
[2016-11-18] MEDS: SENNA 187 MG TABLET GT SCH (08:52)
[2016-11-18] MEDS: HEPARIN SODIUM,PORCINE 5,000 UNITS/ML VIAL SQ SCH ×2 (08:52→19:57)
[2016-11-18] MEDS: LANSOPRAZOLE 30 MG SOLUBLE TABLET GT SCH (08:53)
[2016-11-18] MEDS: POLYETHYLENE GLYCOL 3350 17 GM PACKET GT SCH (08:53)
[2016-11-18] MEDS: CHOLECALCIFEROL (VIT D3) 2,000 UNITS TABLET GT SCH (08:53)
[2016-11-18] MEDS: LevETIRAcetam 100 MG/ML 5 ML SOLUTION UDCUP GT SCH ×2 (08:53→19:56)
[2016-11-18] MEDS: POTASSIUM CHL 10 MEQ/WATER 50 ML IV PRN ×3 (09:00→17:50)
[2016-11-18] MEDS: AMINO ACIDS/PROTEIN HYDROLYS 30 ML TUBE PO SCH (12:00)
[2016-11-18] MEDS ORDERED: HydrALAZINE HCL 20 MG/ML VIAL IVP PRN (17:00)
[2016-11-19 00:12] VITALS: BP 142/75
[2016-11-19] MEDS: DEXTROSE 5%-WATER 1,000 ML IV SCH (05:01)
[2016-11-19] MEDS: CefTAZidime PENTAHYDRATE 2 GM in DEXTROSE 5%-WATER 50 ML IV SCH ×3 (05:01→20:06)
[2016-11-19 05:09] VITALS: BP 160/98
[2016-11-19 06:48] LABS: BASOPHILS % (AUTO) 0.3 % (0.0-2.0); EOSINOPHILS % (AUTO) 2.7 % (1.0-6.0); HEMATOCRIT 48.7 % (41-53); HEMOGLOBIN 16.3 g/dL (13.5-17.5); LYMPHOCYTES # (AUTO) 1.7 K/uL (1.0-4.8); LYMPHOCYTES % (AUTO) 16.9 % (22.0-44.0); MEAN CORPUSCULAR HEMOGLOBIN 32.4 pg (26.0-34.0); MEAN CORPUSCULAR HGB CONC 33.5 G/dL (31.0-37.0); MEAN CORPUSCULAR VOLUME 97 fL (80-100); MONOCYTES % (AUTO) 10.3 % (2.0-9.0); NEUTROPHILS # (AUTO) 6.9 K/uL (1.8-7.7); NEUTROPHILS % (AUTO) 69.8 % (40.0-70.0); PLATELET COUNT (AUTO) 231 K/uL (150-450); RED BLOOD CELL COUNT(AUTO) 5.05 MIL/uL (4.50-5.90); RED CELL DISTRIBUTION WIDTH 12.9 % (11.5-14.5); WHITE BLOOD COUNT (AUTO) 9.9 K/uL (4.5-11.0)
[2016-11-19 07:14] LABS: ALANINE AMINOTRANSFERASE 53 U/L (12-78); ALBUMIN 3.4 g/dL (3.4-5.0); ANION GAP 9 mmol/L (8-16); ASPARTATE AMINOTRANSFERASE 35 U/L (15-37); BILIRUBIN,TOTAL 0.4 mg/dL (0.1-1.0); CALCIUM, TOTAL 9.9 mg/dL (8.8-10.5); CARBON DIOXIDE 28 mmol/L (22-29); CHLORIDE 105 mmol/L (98-107); CREATININE 1.01 mg/dL (0.60-1.30); GLOMERULAR FILTR. RATE CALC > 60 mL/min (>60); POTASSIUM 4.2 mmol/L (3.5-5.1); SODIUM SERUM 142 mmol/L (136-145); TOTAL PROTEIN, SERUM 8.1 g/dL (6.4-8.2); UREA NITROGEN, BLOOD 13 mg/dL (7-18)
[2016-11-19 08:17] VITALS: BP 156/87
[2016-11-19] MEDS: HEPARIN SODIUM,PORCINE 5,000 UNITS/ML VIAL SQ SCH ×2 (09:24→20:07)
[2016-11-19] MEDS: SENNA 187 MG TABLET GT SCH (09:25)
[2016-11-19] MEDS: METOPROLOL TARTRATE 25 MG TABLET GT SCH ×2 (09:25→20:07)
[2016-11-19] MEDS: POLYETHYLENE GLYCOL 3350 17 GM PACKET GT SCH (09:26)
[2016-11-19] MEDS: LevETIRAcetam 100 MG/ML 5 ML SOLUTION UDCUP GT SCH ×2 (09:26→20:06)
[2016-11-19] MEDS: LANSOPRAZOLE 30 MG SOLUBLE TABLET GT SCH (09:27)
[2016-11-19] MEDS: CHOLECALCIFEROL (VIT D3) 2,000 UNITS TABLET GT SCH (09:27)
[2016-11-19] MEDS: AMINO ACIDS/PROTEIN HYDROLYS 30 ML TUBE PO SCH (12:00)
[2016-11-19 12:51] VITALS: BP 176/90
[2016-11-19 15:08] VITALS: BP 150/79
[2016-11-19] MEDS ORDERED: CEFT2PIG IV (18:28)
[2016-11-19] MEDS ORDERED: AMIN30LI2 GT (18:30)
[2016-11-19] MEDS ORDERED: LANS30TA4 GT (18:32)
[2016-11-19] MEDS ORDERED: HEPA500014 SQ (18:32)
[2016-11-19] MEDS ORDERED: BISA10S PR (18:34)
[2016-11-19] MEDS ORDERED: IPRA3AMP4 NEB (18:36)
[2016-11-19] MEDS ORDERED: OXYC-38 GT (18:38)
[2016-11-19 19:51] VITALS: BP 146/78
[2016-11-20 07:10] VITALS: BP 136/67
== END 2016-11-19 21:20 | disposition home or self-care (01) | DRG 871 ==
LOC: EMS 19:33 → 6N 23:25
PROVIDERS: ADMIT Internal Medicine; ATTEND Internal Medicine
DX: A41.9 Sepsis, unspecified organism (principal); G80.0 Spastic quadriplegic cerebral palsy; J10.00 Influenza due to other identified influenza virus with unspecified type of pneumonia; J15.1 Pneumonia due to Pseudomonas; E87.0 Hyperosmolality and hypernatremia; F72 Severe intellectual disabilities; E11.49 Type 2 diabetes mellitus with other diabetic neurological complication; G80.9 Cerebral palsy, unspecified; E86.0 Dehydration; Z93.1 Gastrostomy status; I10 Essential (primary) hypertension; E87.6 Hypokalemia; G40.909 Epilepsy, unspecified, not intractable, without status epilepticus; K21.9 Gastro-esophageal reflux disease without esophagitis; K59.00 Constipation, unspecified; Z79.899 Other long term (current) drug therapy; Z79.1 Long term (current) use of non-steroidal anti-inflammatories (NSAID); Z79.84 Long term (current) use of oral hypoglycemic drugs; Z87.11 Personal history of peptic ulcer disease; Z87.01 Personal history of pneumonia (recurrent)
CPT/HCPCS: 51702; 82962; 83036; 83605; 83735; 84100; 84132; 85007; 87040; 87070; 87081; 87205; 87804; 94640; 96365; 96366; 96367; 99285; J0131; J0360; J0696; J0713; J1644; J3370; J3480; J7030; J7050; J7060

== ENCOUNTER 2016-12-05 00:41 | Inpatient (IN) | payer MEDICARE, MEDICAID ==
[~2016-12-05] VITALS: Ht 165.1 cm; Wt 59.5 kg
[~2016-12-05 00:41] MED LIST changes: +AMIN30LI2 GT; +BISA10S PR; -CALC-6 GT; +CEFT2PIG IV; -DIAZ5 GT; -DSSL GT; -FOLI1TAB24 GT; +HEPA500014 SQ; +IPRA3AMP4 NEB; +LANS30TA4 GT; -OMEP20 GT; +OXYC-38 GT; +VITAD1000 GT
[2016-12-05] MEDS ORDERED: ZOLP5 GT (01:11)
[2016-12-05] MEDS ORDERED: SODIUM CHLORIDE 0.9% 2,000 ML IV ONE (01:15)
[2016-12-05 02:18] LABS: APPEARANCE,URINE CLOUDY (CLEAR); GLUCOSE, URINE (UA) NEGATIVE (NEGATIVE); KETONES,URINE TRACE mg/dL (NEGATIVE); LEUKOCYTE ESTERASE ,URINE NEGATIVE (NEGATIVE); OCCULT BLOOD,URINE LARGE (NEGATIVE); PROTEIN,URINE SEE CONFIRM (NEGATIVE)
[2016-12-05 02:40] LABS: SULFOSALICYLIC ACID,URINE 2+ (Negative)
[2016-12-05 02:41] LABS: WBC,URINE 0-2 /HPF (0-5)
[2016-12-05 02:42] LABS: AMORPHOUS SEDIMENT,UR Few /LPF (None Seen); FINE GRANULAR CASTS,URINE 0-2 /LPF (None Seen); HYALINE CASTS, URINE 0-2 /LPF (None Seen); SQUAMOUS EPITHELIAL CELL,UR Few /LPF (None Seen)
[2016-12-05 02:56] LABS: BASOPHILS # (AUTO) 0.03 K/uL (0.00-0.20); BASOPHILS % (AUTO) 0.4 % (0.0-2.0); EOSINOPHILS # (AUTO) 0.26 K/uL (0.00-0.70); HEMATOCRIT 41.6 % (41-53); HEMOGLOBIN 13.5 g/dL (13.5-17.5); LYMPHOCYTES # (AUTO) 2.5 K/uL (1.0-4.8); LYMPHOCYTES % (AUTO) 31.3 % (22.0-44.0); MEAN CORPUSCULAR HEMOGLOBIN 33.1 pg (26.0-34.0); MEAN CORPUSCULAR HGB CONC 32.4 G/dL (31.0-37.0); MEAN CORPUSCULAR VOLUME 102 fL (80-100); MONOCYTES # (AUTO) 0.6 K/uL (0.1-1.0); MONOCYTES % (AUTO) 7.8 % (2.0-9.0); NEUTROPHILS # (AUTO) 4.6 K/uL (1.8-7.7); NEUTROPHILS % (AUTO) 57.2 % (40.0-70.0); RED BLOOD CELL COUNT(AUTO) 4.07 MIL/uL (4.50-5.90); RED CELL DISTRIBUTION WIDTH 14.5 % (11.5-14.5)
[2016-12-05 03:07] LABS: LACTIC ACID 1.3 mmol/L (0.4-2.0)
[2016-12-05 03:11] LABS: ALANINE AMINOTRANSFERASE 43 U/L (12-78); ALBUMIN 2.5 g/dL (3.4-5.0); ANION GAP 11 mmol/L (8-16); ASPARTATE AMINOTRANSFERASE 89 U/L (15-37); B-TYPE NATRIURETIC PEPTIDE 16 pg/mL (0-100); BILIRUBIN,TOTAL 0.5 mg/dL (0.1-1.0); CALCIUM, TOTAL 7.9 mg/dL (8.8-10.5); CARBON DIOXIDE 32 mmol/L (22-29); CHLORIDE 144 mmol/L (98-107); CREATININE 1.21 mg/dL (0.60-1.30); GLOMERULAR FILTR. RATE CALC > 60 mL/min (>60); TOTAL PROTEIN, SERUM 5.8 g/dL (6.4-8.2); UREA NITROGEN, BLOOD 32 mg/dL (7-18)
[2016-12-05 03:13] LABS: SODIUM SERUM 187 mmol/L (136-145)
[2016-12-05 03:14] LABS: POTASSIUM 2.9 mmol/L (3.5-5.1)
[2016-12-05] MEDS ORDERED: CefTRIAXone 1 GM/DEXTROSE 50 ML IV ONE (03:15)
[2016-12-05 03:16] LABS: TROPONIN I 0.53 ng/mL (0.00-0.05)
[2016-12-05 03:28] LABS: PLATELET COUNT (AUTO) 69 K/uL (150-450)
[2016-12-05] MEDS ORDERED: SODIUM CHLORIDE 0.9% 1,000 ML IV ONE (03:45)
[2016-12-05] MEDS ORDERED: ACETAMINOPHEN 650 MG/20.3 ML SOLUTION UDCUP PEG ONE (03:45)
[2016-12-05] MEDS ORDERED: ACETAMINOPHEN 160 MG/5 ML SUSPENSION UDCUP PEG ONE (03:45)
[2016-12-05] MEDS: POTASSIUM CHLORIDE 10% 40 MEQ/30 ML LIQUID UDCUP PEG SCH ×2 (03:59→04:01)
[2016-12-05 04:03] LABS: PROCALCITONIN (PCT) 0.08 ng/mL (<0.50)
[2016-12-05] MEDS: DEXTROSE 5%-0.45% SODIUM CHL 1,000 ML IV SCH ×2 (04:39→17:00)
[2016-12-05 06:34] LABS: ALANINE AMINOTRANSFERASE 40 U/L (12-78); ALBUMIN 2.4 g/dL (3.4-5.0); ANION GAP 9 mmol/L (8-16); ASPARTATE AMINOTRANSFERASE 99 U/L (15-37); BILIRUBIN,TOTAL 0.4 mg/dL (0.1-1.0); CALCIUM, TOTAL 7.4 mg/dL (8.8-10.5); CARBON DIOXIDE 28 mmol/L (22-29); CHLORIDE 148 mmol/L (98-107); CREATININE 1.02 mg/dL (0.60-1.30); GLOMERULAR FILTR. RATE CALC > 60 mL/min (>60); POTASSIUM 5.3 mmol/L (3.5-5.1); TOTAL PROTEIN, SERUM 5.5 g/dL (6.4-8.2); UREA NITROGEN, BLOOD 27 mg/dL (7-18)
[2016-12-05 07:05] LABS: SODIUM SERUM 185 mmol/L (136-145)
[2016-12-05 07:35] LABS: BASOPHILS # (AUTO) 0.04 K/uL (0.00-0.20); BASOPHILS % (AUTO) 0.5 % (0.0-2.0); EOSINOPHILS # (AUTO) 0.16 K/uL (0.00-0.70); EOSINOPHILS % (AUTO) 2.44 % (1.0-6.0); HEMATOCRIT 40.1 % (41-53); HEMOGLOBIN 13.1 g/dL (13.5-17.5); LYMPHOCYTES # (AUTO) 2.1 K/uL (1.0-4.8); LYMPHOCYTES % (AUTO) 30.6 % (22.0-44.0); MEAN CORPUSCULAR HEMOGLOBIN 33.2 pg (26.0-34.0); MEAN CORPUSCULAR HGB CONC 32.6 G/dL (31.0-37.0); MEAN CORPUSCULAR VOLUME 102 fL (80-100); MONOCYTES # (AUTO) 0.5 K/uL (0.1-1.0); MONOCYTES % (AUTO) 7.3 % (2.0-9.0); NEUTROPHILS % (AUTO) 59.2 % (40.0-70.0); RED BLOOD CELL COUNT(AUTO) 3.93 MIL/uL (4.50-5.90); RED CELL DISTRIBUTION WIDTH 13.9 % (11.5-14.5); WHITE BLOOD COUNT (AUTO) 6.7 K/uL (4.5-11.0)
[2016-12-05] MEDS: HEPARIN SODIUM,PORCINE 5,000 UNITS/ML VIAL SQ SCH ×3 (08:20→23:38)
[2016-12-05] MEDS: PANTOPRAZOLE SODIUM 40 MG/VIAL IVP SCH (08:21)
[2016-12-05 09:08] LABS: PLATELET COUNT (AUTO) 50 K/uL (150-450)
[2016-12-05 11:09] LABS: ANION GAP 9 mmol/L (8-16); CALCIUM, TOTAL 7.5 mg/dL (8.8-10.5); CARBON DIOXIDE 28 mmol/L (22-29); CHLORIDE 145 mmol/L (98-107); CREATINE KINASE MB 4.4 ng/mL (0-5); CREATININE 0.91 mg/dL (0.60-1.30); GLOMERULAR FILTR. RATE CALC > 60 mL/min (>60); POTASSIUM 4.9 mmol/L (3.5-5.1); UREA NITROGEN, BLOOD 27 mg/dL (7-18)
[2016-12-05 11:20] LABS: CREATINE KINASE, TOTAL 5401 U/L (39-308); SODIUM SERUM 182 mmol/L (136-145)
[2016-12-05] MEDS: ACETAMINOPHEN 325 MG TABLET PO PRN (12:27)
[2016-12-05 19:09] VITALS: BP 149/90
[2016-12-05 23:37] VITALS: BP 138/77
[2016-12-06 04:10] VITALS: BP 148/78
[2016-12-06] MEDS: DEXTROSE 5%-0.45% SODIUM CHL 1,000 ML IV SCH ×2 (06:01→18:40)
[2016-12-06 07:27] LABS: BASOPHILS # (AUTO) 0.02 K/uL (0.00-0.20); BASOPHILS % (AUTO) 0.3 % (0.0-2.0); EOSINOPHILS # (AUTO) 0.43 K/uL (0.00-0.70); EOSINOPHILS % (AUTO) 5.56 % (1.0-6.0); HEMOGLOBIN 14.2 g/dL (13.5-17.5); LYMPHOCYTES # (AUTO) 2.1 K/uL (1.0-4.8); LYMPHOCYTES % (AUTO) 26.8 % (22.0-44.0); MEAN CORPUSCULAR HGB CONC 32.9 G/dL (31.0-37.0); MEAN CORPUSCULAR VOLUME 100 fL (80-100); MONOCYTES # (AUTO) 0.4 K/uL (0.1-1.0); MONOCYTES % (AUTO) 4.5 % (2.0-9.0); NEUTROPHILS # (AUTO) 4.8 K/uL (1.8-7.7); NEUTROPHILS % (AUTO) 62.8 % (40.0-70.0); PLATELET COUNT (AUTO) 57 K/uL (150-450); RED BLOOD CELL COUNT(AUTO) 4.29 MIL/uL (4.50-5.90); RED CELL DISTRIBUTION WIDTH 13.5 % (11.5-14.5); WHITE BLOOD COUNT (AUTO) 7.7 K/uL (4.5-11.0)
[2016-12-06 07:49] VITALS: BP 158/75
[2016-12-06] MEDS: PANTOPRAZOLE SODIUM 40 MG/VIAL IVP SCH (07:52)
[2016-12-06 08:11] LABS: RBC MORPHOLOGY COMMENT ABNORMAL RBC MORPH
[2016-12-06] MEDS: ACETAMINOPHEN 325 MG TABLET PO PRN (08:11)
[2016-12-06] MEDS ORDERED: ASPIRIN 81 MG EC TABLET PO SCH (09:00)
[2016-12-06 09:10] LABS: ALANINE AMINOTRANSFERASE 63 U/L (12-78); ALBUMIN 2.9 g/dL (3.4-5.0); ANION GAP 12 mmol/L (8-16); ASPARTATE AMINOTRANSFERASE 168 U/L (15-37); BILIRUBIN,TOTAL 0.8 mg/dL (0.1-1.0); CALCIUM, TOTAL 7.2 mg/dL (8.8-10.5); CARBON DIOXIDE 29 mmol/L (22-29); CHLORIDE 136 mmol/L (98-107); CREATININE 0.78 mg/dL (0.60-1.30); GLOMERULAR FILTR. RATE CALC > 60 mL/min (>60); TOTAL PROTEIN, SERUM 5.8 g/dL (6.4-8.2); UREA NITROGEN, BLOOD 19 mg/dL (7-18)
[2016-12-06 10:20] LABS: CREATINE KINASE, TOTAL 8117 U/L (39-308); POTASSIUM 2.9 mmol/L (3.5-5.1); SODIUM SERUM 177 mmol/L (136-145)
[2016-12-06] MEDS ORDERED: POTASSIUM CHLORIDE 10% 40 MEQ/30 ML LIQUID UDCUP PEG ONE (10:30)
[2016-12-06 10:41] LABS: CREATINE KINASE MB 2.8 ng/mL (0-5)
[2016-12-06 11:04] VITALS: BP 169/100
[2016-12-06] MEDS: METOPROLOL TARTRATE 25 MG TABLET PO SCH ×2 (11:09→22:08)
[2016-12-06] MEDS: PRAVASTATIN SODIUM 20 MG TABLET PO SCH (11:10)
[2016-12-06] MEDS: POTASSIUM CHL 10 MEQ/WATER 50 ML IV SCH ×2 (11:10→13:01)
[2016-12-06 15:25] LABS: ANION GAP 11 mmol/L (8-16); CARBON DIOXIDE 26 mmol/L (22-29); CHLORIDE 133 mmol/L (98-107); CREATININE 0.78 mg/dL (0.60-1.30); GLOMERULAR FILTR. RATE CALC > 60 mL/min (>60); PHOSPHORUS 2.7 mg/dL (2.5-4.9); POTASSIUM 4.2 mmol/L (3.5-5.1); UREA NITROGEN, BLOOD 20 mg/dL (7-18)
[2016-12-06 15:29] LABS: SODIUM SERUM 170 mmol/L (136-145)
[2016-12-06 16:10] VITALS: BP 160/78
[2016-12-06 19:18] VITALS: BP 159/95
[2016-12-06 23:20] VITALS: BP 161/85
[2016-12-07] VITALS (7 sets, daily range): BP systolic 139–164; BP diastolic 65–96
[2016-12-07] MEDS: DEXTROSE 5%-0.45% SODIUM CHL 1,000 ML IV SCH ×2 (02:08→14:02)
[2016-12-07 07:20] LABS: BASOPHILS % (AUTO) 0.4 % (0.0-2.0); EOSINOPHILS % (AUTO) 4.9 % (1.0-6.0); HEMATOCRIT 38.4 % (41-53); HEMOGLOBIN 12.7 g/dL (13.5-17.5); LYMPHOCYTES # (AUTO) 1.7 K/uL (1.0-4.8); LYMPHOCYTES % (AUTO) 26.4 % (22.0-44.0); MEAN CORPUSCULAR HEMOGLOBIN 32.5 pg (26.0-34.0); MEAN CORPUSCULAR HGB CONC 33.1 G/dL (31.0-37.0); MEAN CORPUSCULAR VOLUME 98 fL (80-100); MONOCYTES # (AUTO) 0.3 K/uL (0.1-1.0); MONOCYTES % (AUTO) 4.5 % (2.0-9.0); NEUTROPHILS # (AUTO) 4.2 K/uL (1.8-7.7); NEUTROPHILS % (AUTO) 63.8 % (40.0-70.0); PLATELET COUNT (AUTO) 51 K/uL (150-450); RED BLOOD CELL COUNT(AUTO) 3.92 MIL/uL (4.50-5.90); RED CELL DISTRIBUTION WIDTH 12.7 % (11.5-14.5)
[2016-12-07 07:36] LABS: WHITE BLOOD COUNT (AUTO) 9.6 K/uL (4.5-11.0)
[2016-12-07 07:38] LABS: ALANINE AMINOTRANSFERASE 61 U/L (12-78); ALBUMIN 2.6 g/dL (3.4-5.0); ANION GAP 8 mmol/L (8-16); ASPARTATE AMINOTRANSFERASE 154 U/L (15-37); BILIRUBIN,TOTAL 0.5 mg/dL (0.1-1.0); CALCIUM, TOTAL 7.2 mg/dL (8.8-10.5); CARBON DIOXIDE 28 mmol/L (22-29); CHLORIDE 129 mmol/L (98-107); GLOMERULAR FILTR. RATE CALC > 60 mL/min (>60); TOTAL PROTEIN, SERUM 5.8 g/dL (6.4-8.2); UREA NITROGEN, BLOOD 16 mg/dL (7-18)
[2016-12-07 07:46] LABS: POTASSIUM 2.7 mmol/L (3.5-5.1); SODIUM SERUM 165 mmol/L (136-145)
[2016-12-07] MEDS ORDERED: POTASSIUM CHLORIDE 10% 40 MEQ/30 ML LIQUID UDCUP PEG ONE ×2 (08:30→16:15)
[2016-12-07] MEDS: PRAVASTATIN SODIUM 20 MG TABLET PO SCH (08:56)
[2016-12-07] MEDS: PANTOPRAZOLE SODIUM 40 MG/VIAL IVP SCH (08:56)
[2016-12-07] MEDS: METOPROLOL TARTRATE 25 MG TABLET PO SCH (08:57)
[2016-12-07] MEDS: POTASSIUM CHL 10 MEQ/WATER 50 ML IV SCH ×4 (08:58→18:00)
[2016-12-07] MEDS ORDERED: AmLODIPine BESYLATE 2.5 MG TABLET PO SCH (09:00)
[2016-12-07 10:38] LABS: ANION GAP 13 mmol/L (8-16); CALCIUM, TOTAL 7.3 mg/dL (8.8-10.5); CARBON DIOXIDE 24 mmol/L (22-29); CHLORIDE 127 mmol/L (98-107); CREATININE 0.71 mg/dL (0.60-1.30); GLOMERULAR FILTR. RATE CALC > 60 mL/min (>60); PHOSPHORUS 2.2 mg/dL (2.5-4.9); POTASSIUM 3.1 mmol/L (3.5-5.1); UREA NITROGEN, BLOOD 16 mg/dL (7-18)
[2016-12-07 10:42] LABS: SODIUM SERUM 164 mmol/L (136-145)
[2016-12-07 11:26] LABS: CREATINE KINASE MB 2.4 ng/mL (0-5)
[2016-12-07 12:21] LABS: CREATINE KINASE, TOTAL 6817 U/L (39-308)
[2016-12-07 15:22] LABS: ANION GAP 8 mmol/L (8-16); CALCIUM, TOTAL 7.3 mg/dL (8.8-10.5); CARBON DIOXIDE 29 mmol/L (22-29); CHLORIDE 126 mmol/L (98-107); CREATININE 0.71 mg/dL (0.60-1.30); GLOMERULAR FILTR. RATE CALC > 60 mL/min (>60); PHOSPHORUS 2.2 mg/dL (2.5-4.9); POTASSIUM 3.1 mmol/L (3.5-5.1); UREA NITROGEN, BLOOD 14 mg/dL (7-18)
[2016-12-07 15:57] LABS: SODIUM SERUM 163 mmol/L (136-145)
[2016-12-07] MEDS ORDERED: AmLODIPine BESYLATE 5 MG TABLET PO ONE (17:15)
[2016-12-08] MEDS: DEXTROSE 5%-0.45% SODIUM CHL 1,000 ML IV SCH ×3 (00:41→19:46)
[2016-12-08 05:24] VITALS: BP 155/92
[2016-12-08 06:38] LABS: BASOPHILS % (AUTO) 0.1 % (0.0-2.0); EOSINOPHILS # (AUTO) 0.28 K/uL (0.00-0.70); EOSINOPHILS % (AUTO) 3.68 % (1.0-6.0); HEMATOCRIT 37.4 % (41-53); HEMOGLOBIN 12.6 g/dL (13.5-17.5); LYMPHOCYTES % (AUTO) 26.4 % (22.0-44.0); MEAN CORPUSCULAR HEMOGLOBIN 33.1 pg (26.0-34.0); MEAN CORPUSCULAR HGB CONC 33.8 G/dL (31.0-37.0); MEAN CORPUSCULAR VOLUME 98 fL (80-100); MONOCYTES # (AUTO) 0.4 K/uL (0.1-1.0); MONOCYTES % (AUTO) 5.2 % (2.0-9.0); NEUTROPHILS # (AUTO) 4.9 K/uL (1.8-7.7); NEUTROPHILS % (AUTO) 64.7 % (40.0-70.0); PLATELET COUNT (AUTO) 56 K/uL (150-450); RED BLOOD CELL COUNT(AUTO) 3.82 MIL/uL (4.50-5.90); RED CELL DISTRIBUTION WIDTH 13.3 % (11.5-14.5); WHITE BLOOD COUNT (AUTO) 7.6 K/uL (4.5-11.0)
[2016-12-08 07:05] VITALS: BP 146/96
[2016-12-08 07:49] LABS: ALANINE AMINOTRANSFERASE 78 U/L (12-78); ALBUMIN 2.5 g/dL (3.4-5.0); ANION GAP 10 mmol/L (8-16); ASPARTATE AMINOTRANSFERASE 157 U/L (15-37); BILIRUBIN,TOTAL 0.3 mg/dL (0.1-1.0); CALCIUM, TOTAL 7.5 mg/dL (8.8-10.5); CARBON DIOXIDE 26 mmol/L (22-29); CHLORIDE 121 mmol/L (98-107); CREATINE KINASE MB 2.6 ng/mL (0-5); CREATININE 0.69 mg/dL (0.60-1.30); GLOMERULAR FILTR. RATE CALC > 60 mL/min (>60); PHOSPHORUS 2.3 mg/dL (2.5-4.9); SODIUM SERUM 157 mmol/L (136-145); TOTAL PROTEIN, SERUM 5.7 g/dL (6.4-8.2); UREA NITROGEN, BLOOD 12 mg/dL (7-18)
[2016-12-08 08:13] LABS: CREATINE KINASE, TOTAL 5581 U/L (39-308); POTASSIUM 2.9 mmol/L (3.5-5.1)
[2016-12-08] MEDS ORDERED: POTASSIUM CHLORIDE 10% 40 MEQ/30 ML LIQUID UDCUP PEG ONE ×2 (08:30→17:00)
[2016-12-08] MEDS ORDERED: AmLODIPine BESYLATE 5 MG TABLET PO SCH (09:00)
[2016-12-08] MEDS: PANTOPRAZOLE SODIUM 40 MG/VIAL IVP SCH (09:09)
[2016-12-08] MEDS: PRAVASTATIN SODIUM 20 MG TABLET PO SCH (09:09)
[2016-12-08] MEDS: AmLODIPine BESYLATE 10 MG TABLET PO SCH (09:09)
[2016-12-08] MEDS: POTASSIUM CHL 10 MEQ/WATER 50 ML IV SCH ×2 (09:12→11:43)
[2016-12-08 11:01] VITALS: BP 130/58
[2016-12-08] MEDS: POTASSIUM PHOS/SODIUM PHOS MIXTURE 1 POWDER PACKET PO SCH ×2 (11:43→20:37)
[2016-12-08 14:59] VITALS: BP 132/62
[2016-12-08 16:44] LABS: ANION GAP 9 mmol/L (8-16); CALCIUM, TOTAL 8.1 mg/dL (8.8-10.5); CARBON DIOXIDE 28 mmol/L (22-29); CHLORIDE 119 mmol/L (98-107); CREATININE 0.63 mg/dL (0.60-1.30); GLOMERULAR FILTR. RATE CALC > 60 mL/min (>60); POTASSIUM 3.3 mmol/L (3.5-5.1); SODIUM SERUM 156 mmol/L (136-145); UREA NITROGEN, BLOOD 11 mg/dL (7-18)
[2016-12-08 19:32] VITALS: BP 136/79
[2016-12-08 23:57] VITALS: BP 125/79
[2016-12-09] MEDS: DEXTROSE 5%-0.45% SODIUM CHL 1,000 ML IV SCH ×3 (04:10→20:40)
[2016-12-09 05:07] VITALS: BP 137/81
[2016-12-09 07:04] VITALS: BP 141/68
[2016-12-09 07:13] LABS: BASOPHILS % (AUTO) 0.7 % (0.0-2.0); EOSINOPHILS % (AUTO) 4.2 % (1.0-6.0); HEMATOCRIT 36.9 % (41-53); HEMOGLOBIN 12.5 g/dL (13.5-17.5); LYMPHOCYTES # (AUTO) 1.7 K/uL (1.0-4.8); MEAN CORPUSCULAR HEMOGLOBIN 32.7 pg (26.0-34.0); MEAN CORPUSCULAR HGB CONC 33.9 G/dL (31.0-37.0); MEAN CORPUSCULAR VOLUME 96 fL (80-100); MONOCYTES # (AUTO) 0.4 K/uL (0.1-1.0); MONOCYTES % (AUTO) 4.8 % (2.0-9.0); NEUTROPHILS # (AUTO) 6.1 K/uL (1.8-7.7); NEUTROPHILS % (AUTO) 70.3 % (40.0-70.0); PLATELET COUNT (AUTO) 41 K/uL (150-450); RED BLOOD CELL COUNT(AUTO) 3.82 MIL/uL (4.50-5.90); RED CELL DISTRIBUTION WIDTH 12.3 % (11.5-14.5); WHITE BLOOD COUNT (AUTO) 8.7 K/uL (4.5-11.0)
[2016-12-09 07:29] LABS: ALANINE AMINOTRANSFERASE 84 U/L (12-78); ALBUMIN 2.6 g/dL (3.4-5.0); ANION GAP 11 mmol/L (8-16); ASPARTATE AMINOTRANSFERASE 156 U/L (15-37); BILIRUBIN,TOTAL 0.4 mg/dL (0.1-1.0); CALCIUM, TOTAL 8.2 mg/dL (8.8-10.5); CARBON DIOXIDE 24 mmol/L (22-29); CHLORIDE 116 mmol/L (98-107); CREATINE KINASE MB 1.7 ng/mL (0-5); CREATININE 0.56 mg/dL (0.60-1.30); GLOMERULAR FILTR. RATE CALC > 60 mL/min (>60); PHOSPHORUS 3.2 mg/dL (2.5-4.9); POTASSIUM 4.4 mmol/L (3.5-5.1); SODIUM SERUM 151 mmol/L (136-145); TOTAL PROTEIN, SERUM 5.9 g/dL (6.4-8.2); UREA NITROGEN, BLOOD 11 mg/dL (7-18)
[2016-12-09 07:43] LABS: CREATINE KINASE, TOTAL 4306 U/L (39-308)
[2016-12-09] MEDS: PANTOPRAZOLE SODIUM 40 MG/VIAL IVP SCH (10:51)
[2016-12-09] MEDS: PRAVASTATIN SODIUM 20 MG TABLET PO SCH (10:51)
[2016-12-09] MEDS: AmLODIPine BESYLATE 10 MG TABLET PO SCH (10:51)
[2016-12-09 11:42] VITALS: BP 128/76
[2016-12-09 15:13] VITALS: BP 164/91
[2016-12-09 18:11] VITALS: BP 155/60
[2016-12-09 19:39] VITALS: BP 149/84
[2016-12-10] VITALS (7 sets, daily range): BP systolic 131–157; BP diastolic 78–99
[2016-12-10] MEDS: DEXTROSE 5%-0.45% SODIUM CHL 1,000 ML IV SCH ×2 (00:07→05:52)
[2016-12-10] MEDS ORDERED: LORazepam 2 MG/ML VIAL IVP PRN (04:00)
[2016-12-10 08:50] LABS: EOSINOPHILS % (AUTO) 2.7 % (1.0-6.0); HEMATOCRIT 36.5 % (41-53); HEMOGLOBIN 12.3 g/dL (13.5-17.5); LYMPHOCYTES # (AUTO) 1.3 K/uL (1.0-4.8); LYMPHOCYTES % (AUTO) 12.7 % (22.0-44.0); MEAN CORPUSCULAR HEMOGLOBIN 32.5 pg (26.0-34.0); MEAN CORPUSCULAR HGB CONC 33.6 G/dL (31.0-37.0); MEAN CORPUSCULAR VOLUME 97 fL (80-100); MONOCYTES # (AUTO) 0.6 K/uL (0.1-1.0); MONOCYTES % (AUTO) 5.8 % (2.0-9.0); NEUTROPHILS % (AUTO) 78.8 % (40.0-70.0); PLATELET COUNT (AUTO) 70 K/uL (150-450); RED BLOOD CELL COUNT(AUTO) 3.77 MIL/uL (4.50-5.90); RED CELL DISTRIBUTION WIDTH 12.4 % (11.5-14.5); WHITE BLOOD COUNT (AUTO) 10.1 K/uL (4.5-11.0)
[2016-12-10] MEDS: AmLODIPine BESYLATE 10 MG TABLET PO SCH (09:00)
[2016-12-10] MEDS ORDERED: LevETIRAcetam 100 MG/ML 5 ML SOLUTION UDCUP GT SCH (09:00)
[2016-12-10] MEDS: PRAVASTATIN SODIUM 20 MG TABLET PO SCH (09:00)
[2016-12-10 09:27] LABS: ALANINE AMINOTRANSFERASE 76 U/L (12-78); ALBUMIN 2.6 g/dL (3.4-5.0); ANION GAP 9 mmol/L (8-16); ASPARTATE AMINOTRANSFERASE 89 U/L (15-37); BILIRUBIN,TOTAL 0.3 mg/dL (0.1-1.0); CALCIUM, TOTAL 7.5 mg/dL (8.8-10.5); CARBON DIOXIDE 28 mmol/L (22-29); CHLORIDE 112 mmol/L (98-107); CREATINE KINASE MB 2.2 ng/mL (0-5); CREATININE 0.65 mg/dL (0.60-1.30); GLOMERULAR FILTR. RATE CALC > 60 mL/min (>60); PHOSPHORUS 2.8 mg/dL (2.5-4.9); SODIUM SERUM 149 mmol/L (136-145); TOTAL PROTEIN, SERUM 5.6 g/dL (6.4-8.2); UREA NITROGEN, BLOOD 8 mg/dL (7-18)
[2016-12-10 09:29] LABS: CREATINE KINASE, TOTAL 1768 U/L (39-308); POTASSIUM 2.5 mmol/L (3.5-5.1)
[2016-12-10] MEDS: POTASSIUM CHL 40 MEQ/D5-0.45NS 1,000 ML IV SCH (10:51)
[2016-12-10] MEDS: POTASSIUM CHL 10 MEQ/WATER 50 ML IV SCH ×3 (14:24→18:16)
[2016-12-10] MEDS ORDERED: SODIUM CHLORIDE 0.9% 250 ML IV ONE (14:27)
[2016-12-10 17:02] LABS: ANION GAP 11 mmol/L (8-16); CARBON DIOXIDE 28 mmol/L (22-29); CHLORIDE 111 mmol/L (98-107); CREATININE 0.76 mg/dL (0.60-1.30); GLOMERULAR FILTR. RATE CALC > 60 mL/min (>60); SODIUM SERUM 150 mmol/L (136-145); UREA NITROGEN, BLOOD 8 mg/dL (7-18)
[2016-12-10 17:10] LABS: POTASSIUM 2.9 mmol/L (3.5-5.1)
[2016-12-10] MEDS: LevETIRAcetam 750 MG in DEXTROSE 5%-WATER 100 ML IV SCH (17:20)
[2016-12-10] MEDS: PANTOPRAZOLE SODIUM 40 MG/VIAL IVP SCH (17:20)
[2016-12-11] VITALS (10 sets, daily range): BP systolic 135–152; BP diastolic 73–101
[2016-12-11] MEDS: POTASSIUM CHL 40 MEQ/D5-0.45NS 1,000 ML IV SCH ×2 (05:51→19:20)
[2016-12-11] MEDS: LevETIRAcetam 750 MG in DEXTROSE 5%-WATER 100 ML IV SCH ×2 (05:54→18:21)
[2016-12-11] MEDS ORDERED: LIDOCAINE HCL/PF 2% 5 ML VIAL IM ONE (07:02)
[2016-12-11] MEDS ORDERED: PROPOFOL 1% 20 ML VIAL IVP ONE (07:02)
[2016-12-11 07:34] LABS: BASOPHILS # (AUTO) 0.03 K/uL (0.00-0.20); BASOPHILS % (AUTO) 0.4 % (0.0-2.0); EOSINOPHILS # (AUTO) 0.27 K/uL (0.00-0.70); EOSINOPHILS % (AUTO) 3.15 % (1.0-6.0); HEMATOCRIT 36.8 % (41-53); HEMOGLOBIN 12.8 g/dL (13.5-17.5); LYMPHOCYTES # (AUTO) 1.3 K/uL (1.0-4.8); LYMPHOCYTES % (AUTO) 15.4 % (22.0-44.0); MEAN CORPUSCULAR HEMOGLOBIN 33.3 pg (26.0-34.0); MEAN CORPUSCULAR HGB CONC 34.8 G/dL (31.0-37.0); MEAN CORPUSCULAR VOLUME 96 fL (80-100); MONOCYTES # (AUTO) 0.6 K/uL (0.1-1.0); MONOCYTES % (AUTO) 6.5 % (2.0-9.0); NEUTROPHILS # (AUTO) 6.3 K/uL (1.8-7.7); NEUTROPHILS % (AUTO) 74.6 % (40.0-70.0); PLATELET COUNT (AUTO) 85 K/uL (150-450); RED BLOOD CELL COUNT(AUTO) 3.83 MIL/uL (4.50-5.90); RED CELL DISTRIBUTION WIDTH 12.4 % (11.5-14.5); WHITE BLOOD COUNT (AUTO) 8.5 K/uL (4.5-11.0)
[2016-12-11 07:43] LABS: ALANINE AMINOTRANSFERASE 67 U/L (12-78); ALBUMIN 2.6 g/dL (3.4-5.0); ANION GAP 9 mmol/L (8-16); ASPARTATE AMINOTRANSFERASE 64 U/L (15-37); BILIRUBIN,TOTAL 0.5 mg/dL (0.1-1.0); CALCIUM, TOTAL 7.9 mg/dL (8.8-10.5); CARBON DIOXIDE 28 mmol/L (22-29); CHLORIDE 111 mmol/L (98-107); CREATININE 0.67 mg/dL (0.60-1.30); GLOMERULAR FILTR. RATE CALC > 60 mL/min (>60); SODIUM SERUM 148 mmol/L (136-145); TOTAL PROTEIN, SERUM 6.3 g/dL (6.4-8.2); UREA NITROGEN, BLOOD 9 mg/dL (7-18)
[2016-12-11 07:59] LABS: POTASSIUM 2.9 mmol/L (3.5-5.1)
[2016-12-11] MEDS: AmLODIPine BESYLATE 10 MG TABLET PO SCH (09:00)
[2016-12-11] MEDS: PRAVASTATIN SODIUM 20 MG TABLET PO SCH (09:00)
[2016-12-11] MEDS: PANTOPRAZOLE SODIUM 40 MG/VIAL IVP SCH (09:53)
[2016-12-11] MEDS ORDERED: SODIUM CHLORIDE 0.9% 1,000 ML IV ONE (10:00)
[2016-12-11] MEDS: POTASSIUM CHL 10 MEQ/WATER 50 ML IV SCH ×4 (10:07→17:08)
[2016-12-11] MEDS ORDERED: SODIUM CHLORIDE 0.9% 100 ML ONE (12:11)
[2016-12-11] MEDS ORDERED: DEXTROSE 50%-WATER 25 GM/50 ML SYRINGE IVP PRN (13:00)
[2016-12-11] MEDS: INSULIN REGULAR, HUMAN 100 UNITS/ML SQ PRN (18:18)
[2016-12-11 19:47] LABS: GLUCOSE,POINT OF CARE 108 MG/DL (70-110)
[2016-12-11 19:47] LABS: GLUCOSE,POINT OF CARE 112 MG/DL (70-110)
[2016-12-11] MEDS: OXYGEN THERAPY IH SCH (21:32)
[2016-12-11] MEDS ORDERED: BISACODYL 10 MG RECTAL RECTAL SUPPOSITORY PR PRN (21:45)
[2016-12-11] MEDS: ONDANSETRON HCL 4 MG/2 ML VIAL IVP PRN (21:51)
[2016-12-12] MEDS: POTASSIUM CHL 40 MEQ/D5-0.45NS 1,000 ML IV SCH ×2 (04:15→14:22)
[2016-12-12] MEDS: LevETIRAcetam 750 MG in DEXTROSE 5%-WATER 100 ML IV SCH ×2 (04:45→16:46)
[2016-12-12 05:04] VITALS: BP 141/88
[2016-12-12 07:27] VITALS: BP 150/88
[2016-12-12] MEDS: PANTOPRAZOLE SODIUM 40 MG/VIAL IVP SCH (08:39)
[2016-12-12] MEDS: OXYGEN THERAPY IH SCH ×2 (08:41→20:33)
[2016-12-12] MEDS: PRAVASTATIN SODIUM 20 MG TABLET PO SCH (09:00)
[2016-12-12] MEDS: AmLODIPine BESYLATE 10 MG TABLET PO SCH (09:00)
[2016-12-12] MEDS: ONDANSETRON HCL 4 MG/2 ML VIAL IVP PRN (09:42)
[2016-12-12] MEDS: HYDROGEN PEROXIDE 473 ML SOLUTION TP SCH (09:47)
[2016-12-12] MEDS: POVIDONE-IODINE 120 ML SOLUTION TP SCH (09:47)
[2016-12-12 11:19] LABS: ANION GAP 5 mmol/L (8-16); CALCIUM, TOTAL 8.2 mg/dL (8.8-10.5); CARBON DIOXIDE 29 mmol/L (22-29); CHLORIDE 110 mmol/L (98-107); CREATININE 0.68 mg/dL (0.60-1.30); GLOMERULAR FILTR. RATE CALC > 60 mL/min (>60); POTASSIUM 3.8 mmol/L (3.5-5.1); SODIUM SERUM 144 mmol/L (136-145); UREA NITROGEN, BLOOD 10 mg/dL (7-18)
[2016-12-12 11:23] LABS: PHOSPHORUS 2.9 mg/dL (2.5-4.9)
[2016-12-12 11:26] VITALS: BP 145/92
[2016-12-12] MEDS: INSULIN REGULAR, HUMAN 100 UNITS/ML SQ PRN ×2 (12:24→18:24)
[2016-12-12 15:22] VITALS: BP 139/86
[2016-12-12 20:09] VITALS: BP 150/95
[2016-12-12 20:27] LABS: GLUCOSE,POINT OF CARE 104 MG/DL (70-110)
[2016-12-12 20:27] LABS: GLUCOSE,POINT OF CARE 115 MG/DL (70-110)
[2016-12-12] MEDS: METOPROLOL TARTRATE 25 MG TABLET GT SCH (20:34)
[2016-12-12 23:56] VITALS: BP 166/79
[2016-12-13] MEDS: LevETIRAcetam 750 MG in DEXTROSE 5%-WATER 100 ML IV SCH (05:52)
[2016-12-13 06:07] VITALS: BP 149/93
[2016-12-13 06:46] LABS: ANION GAP 7 mmol/L (8-16); CALCIUM, TOTAL 8.9 mg/dL (8.8-10.5); CARBON DIOXIDE 27 mmol/L (22-29); CHLORIDE 108 mmol/L (98-107); CREATININE 0.61 mg/dL (0.60-1.30); GLOMERULAR FILTR. RATE CALC > 60 mL/min (>60); PHOSPHORUS 3.4 mg/dL (2.5-4.9); POTASSIUM 3.5 mmol/L (3.5-5.1); SODIUM SERUM 142 mmol/L (136-145); UREA NITROGEN, BLOOD 12 mg/dL (7-18)
[2016-12-13 06:47] LABS: BASOPHILS # (AUTO) 0.01 K/uL (0.00-0.20); BASOPHILS % (AUTO) 0.1 % (0.0-2.0); EOSINOPHILS # (AUTO) 0.26 K/uL (0.00-0.70); EOSINOPHILS % (AUTO) 3.43 % (1.0-6.0); HEMATOCRIT 36.5 % (41-53); HEMOGLOBIN 12.5 g/dL (13.5-17.5); LYMPHOCYTES # (AUTO) 1.2 K/uL (1.0-4.8); LYMPHOCYTES % (AUTO) 16.3 % (22.0-44.0); MEAN CORPUSCULAR HGB CONC 34.3 G/dL (31.0-37.0); MEAN CORPUSCULAR VOLUME 96 fL (80-100); MONOCYTES # (AUTO) 0.7 K/uL (0.1-1.0); MONOCYTES % (AUTO) 9.5 % (2.0-9.0); NEUTROPHILS # (AUTO) 5.4 K/uL (1.8-7.7); NEUTROPHILS % (AUTO) 70.7 % (40.0-70.0); PLATELET COUNT (AUTO) 115 K/uL (150-450); RED BLOOD CELL COUNT(AUTO) 3.79 MIL/uL (4.50-5.90); RED CELL DISTRIBUTION WIDTH 13.5 % (11.5-14.5); WHITE BLOOD COUNT (AUTO) 7.6 K/uL (4.5-11.0)
[2016-12-13 07:34] VITALS: BP 137/89
[2016-12-13 07:57] LABS: GLUCOSE,POINT OF CARE 110 MG/DL (70-110)
[2016-12-13 07:57] LABS: GLUCOSE,POINT OF CARE 106 MG/DL (70-110)
[2016-12-13] MEDS: PANTOPRAZOLE SODIUM 40 MG/VIAL IVP SCH (07:57)
[2016-12-13] MEDS: PRAVASTATIN SODIUM 20 MG TABLET PO SCH (07:57)
[2016-12-13] MEDS: METOPROLOL TARTRATE 25 MG TABLET GT SCH (07:57)
[2016-12-13] MEDS: HYDROGEN PEROXIDE 473 ML SOLUTION TP SCH (07:58)
[2016-12-13] MEDS: POVIDONE-IODINE 120 ML SOLUTION TP SCH (07:58)
[2016-12-13] MEDS: AmLODIPine BESYLATE 10 MG TABLET PO SCH (07:58)
[2016-12-13] MEDS: OXYGEN THERAPY IH SCH (07:58)
[2016-12-13 11:15] VITALS: BP 133/63
[2016-12-13] MEDS ORDERED: POTASSIUM CHLORIDE 10% 40 MEQ/30 ML LIQUID UDCUP PEG ONE (11:45)
[2016-12-13 13:41] LABS: CREATINE KINASE MB 1.8 ng/mL (0-5); CREATINE KINASE, TOTAL 299 U/L (39-308)
[2016-12-13] MEDS: INSULIN REGULAR, HUMAN 100 UNITS/ML SQ PRN (15:18)
[2016-12-13 15:24] VITALS: BP 144/85
[2016-12-13] MEDS ORDERED: INSREG SQ (16:24)
[2016-12-13 18:13] LABS: GLUCOSE,POINT OF CARE 114 MG/DL (70-110)
[2016-12-13 18:13] LABS: GLUCOSE COMMENT 1 Juice/Food/D50 Given; GLUCOSE,POINT OF CARE 69 MG/DL (70-110)
[2016-12-13 18:13] LABS: GLUCOSE,POINT OF CARE 104 MG/DL (70-110)
[2016-12-13 18:13] LABS: GLUCOSE,POINT OF CARE 72 MG/DL (70-110)
[2016-12-13 18:13] LABS: GLUCOSE,POINT OF CARE 106 MG/DL (70-110)
[2016-12-15] MEDS ORDERED: SODIUM CHLORIDE 0.9% 1,000 ML IV ONE (08:55)
== END 2016-12-13 16:50 | disposition home or self-care (01) | DRG 871 ==
LOC: EMS 00:43 → 5N 14:44
PROVIDERS: ADMIT Hospitalist; ATTEND Hospitalist
PROC: 0D20XUZ Change Feeding Device in Upper Intestinal Tract, External Approach (ICD-10-PCS; principal; 2016-12-11 11:00)
DX: A41.9 Sepsis, unspecified organism (principal); G80.0 Spastic quadriplegic cerebral palsy; E43 Unspecified severe protein-calorie malnutrition; G93.41 Metabolic encephalopathy; E87.0 Hyperosmolality and hypernatremia; M62.82 Rhabdomyolysis; F72 Severe intellectual disabilities; J44.9 Chronic obstructive pulmonary disease, unspecified; E11.9 Type 2 diabetes mellitus without complications; R13.10 Dysphagia, unspecified; D69.6 Thrombocytopenia, unspecified; E83.39 Other disorders of phosphorus metabolism; E86.0 Dehydration; E87.6 Hypokalemia; G40.909 Epilepsy, unspecified, not intractable, without status epilepticus; Z68.21 Body mass index [BMI] 21.0-21.9, adult; I10 Essential (primary) hypertension; R31.9 Hematuria, unspecified; K94.29 Other complications of gastrostomy; Y83.3 Surgical operation with formation of external stoma as the cause of abnormal reaction of the patient, or of later complication, without mention of misadventure at the time of the procedure; Z79.84 Long term (current) use of oral hypoglycemic drugs; Z87.11 Personal history of peptic ulcer disease; Z79.2 Long term (current) use of antibiotics; Z79.1 Long term (current) use of non-steroidal anti-inflammatories (NSAID); Z79.891 Long term (current) use of opiate analgesic; Z79.51 Long term (current) use of inhaled steroids; Z79.899 Other long term (current) drug therapy; Y92.89 Other specified places as the place of occurrence of the external cause
CPT/HCPCS: 51702; 82088; 82436; 82962; 83605; 83735; 83874; 83935; 84100; 84132; 84133; 84145; 84244; 84300; 87040; 87081; 93005; 93306; 93970; 96361; 96365; 99285; C9113; J0696; J0712; J1644; J2060; J2405; J2704; J3480; J3490; J7050; J7060

== ENCOUNTER 2017-12-27 18:47 | Inpatient (IN) | payer MEDICARE, MEDICAID ==
[~2017-12-27] VITALS: Ht 152.4 cm; Wt 64.0 kg
[~2017-12-27 18:47] MED LIST changes: -BISA10S PR; -CEFT2PIG IV; +INSREG SQ; -OXYC-38 GT; -VITAD1000 GT; +ZOLP5 GT
[2017-12-27] MEDS ORDERED: ACET325T47 GT (19:06)
[2017-12-27] MEDS ORDERED: BISA10SU22 PR (19:06)
[2017-12-27] MEDS ORDERED: VITAD1000 GT (19:06)
[2017-12-27] MEDS ORDERED: OSCD250 GT (19:06)
[2017-12-27] MEDS ORDERED: ESOM20CA31 GT (19:06)
[2017-12-27] MEDS ORDERED: DIAZ10 PO (19:06)
[2017-12-27] MEDS ORDERED: FE PR (19:06)
[2017-12-27] MEDS ORDERED: MULT240L12 GT (19:06)
[2017-12-27 19:18] LABS: GLUCOSE,POINT OF CARE 91 MG/DL (70-110)
[2017-12-27 19:25] LABS: BASOPHILS % (AUTO) 0.6 % (0.0-2.0); HEMOGLOBIN 12.5 g/dL (13.5-17.5); LYMPHOCYTES # (AUTO) 1.7 K/uL (1.0-4.8); LYMPHOCYTES % (AUTO) 21.5 % (22.0-44.0); MEAN CORPUSCULAR HEMOGLOBIN 32.9 pg (26.0-34.0); MEAN CORPUSCULAR HGB CONC 34.7 G/dL (31.0-37.0); MEAN CORPUSCULAR VOLUME 95 fL (80-100); MONOCYTES % (AUTO) 12.9 % (2.0-9.0); NEUTROPHILS # (AUTO) 4.9 K/uL (1.8-7.7); PLATELET COUNT (AUTO) 184 K/uL (150-450); RED CELL DISTRIBUTION WIDTH 13.4 % (11.5-14.5)
[2017-12-27 19:46] LABS: ANION GAP 3 mmol/L (8-16); CALCIUM, TOTAL 9.5 mg/dL (8.8-10.5); CARBON DIOXIDE 36 mmol/L (22-29); CHLORIDE 107 mmol/L (98-107); CREATININE 0.75 mg/dL (0.60-1.30); GLOMERULAR FILTR. RATE CALC > 60 mL/min (>60); GLUCOSE,RANDOM 99 mg/dL (70-110); SODIUM SERUM 146 mmol/L (136-145); UREA NITROGEN, BLOOD 16 mg/dL (7-18)
[2017-12-27 19:52] LABS: B-TYPE NATRIURETIC PEPTIDE 41 pg/mL (0-100)
[2017-12-27 20:11] LABS: ALANINE AMINOTRANSFERASE 30 U/L (12-78); ALKALINE PHOSPHATASE 55 U/L (46-116); ASPARTATE AMINOTRANSFERASE 28 U/L (15-37); BILIRUBIN,TOTAL 0.3 mg/dL (0.1-1.0); CREATINE KINASE MB 1.2 ng/mL (0-5); CREATINE KINASE, TOTAL 99 U/L (39-308)
[2017-12-27] MEDS ORDERED: IPRATROPIUM BROMIDE 0.5 MG/2.5 ML NEB SOLUTION NEB ONE (22:15)
[2017-12-27] MEDS ORDERED: ALBUTEROL SULFATE 5 MG/ML 20 ML NEB SOLN [BULK] NEB ONE (22:15)
[2017-12-27] MEDS ORDERED: DEXAMETHASONE SOD PHOS 4 MG/ML 5 ML VIAL IVP ONE (22:15)
[2017-12-27] MEDS ORDERED: PIPERACILLIN/TAZO 3.375 GM/D5W 50 ML IV ONE (22:30)
[2017-12-27] MEDS ORDERED: ASPIRIN 325 MG TABLET GT ONE (22:30)
[2017-12-27] MEDS ORDERED: VANCOMYCIN HCL 1.25 GM in DEXTROSE 5%-WATER 250 ML IV ONE (22:30)
[2017-12-27] MEDS ORDERED: LEVOFLOXACIN 750 MG/D5% WATER 150 ML IV ONE (22:30)
[2017-12-27] MEDS ORDERED: POTASSIUM CHL 10 MEQ/WATER 50 ML IV SCH (23:00)
[2017-12-27] MEDS ORDERED: IPRATROPIUM BROMIDE 0.5 MG/2.5 ML NEB SOLUTION NEB PRN (23:30)
[2017-12-27] MEDS ORDERED: OxyCODONE HCL/ACETAMINOPHEN 5-325 MG TABLET GT PRN (23:30)
[2017-12-27] MEDS ORDERED: POTASSIUM CHLORIDE 20 MEQ ER TABLET PO PRN (23:30)
[2017-12-27] MEDS ORDERED: ONDANSETRON HCL 4 MG/2 ML VIAL IVP PRN (23:30)
[2017-12-27] MEDS ORDERED: BISACODYL 10 MG RECTAL RECTAL SUPPOSITORY PR PRN (23:30)
[2017-12-27] MEDS ORDERED: ALBUTEROL SULFATE 2.5 MG/0.5 ML NEB SOLUTION NEB PRN ×2 (23:30)
[2017-12-27] MEDS ORDERED: LABETALOL HCL 5 MG/ML 20 ML VIAL IVP ONE (23:30)
[2017-12-27] MEDS ORDERED: MORPHINE SULFATE 2 MG/ML SYRINGE IVP PRN (23:30)
[2017-12-27] MEDS ORDERED: MAGNESIUM OXIDE 400 MG TABLET GT PRN (23:30)
[2017-12-27] MEDS ORDERED: DIAZEPAM 5 MG/ML 2 ML SYRINGE IVP ONE (23:30)
[2017-12-27] MEDS ORDERED: MAGNESIUM HYDROXIDE SUSPENSION 30 ML UDCUP GT PRN (23:30)
[2017-12-27] MEDS ORDERED: ZOLPIDEM TARTRATE 5 MG TABLET PO PRN (23:30)
[2017-12-27] MEDS ORDERED: ACETAMINOPHEN 650 MG/20.3 ML SOLUTION UDCUP GT PRN (23:30)
[2017-12-27] MEDS ORDERED: MAGNESIUM SULFATE 4 GM/WATER 100 ML IV PRN (23:30)
[2017-12-27] MEDS ORDERED: MAGNESIUM SULFATE 2 GM in DEXTROSE 5%-WATER 50 ML IV PRN (23:30)
[2017-12-28] MEDS: SODIUM CHLORIDE 0.9% 1,000 ML IV SCH ×2 (00:29→12:51)
[2017-12-28] MEDS: POTASSIUM CHL 10 MEQ/WATER 50 ML IV PRN ×4 (02:14→06:07)
[2017-12-28] MEDS: LEVOFLOXACIN 500 MG/D5% WATER 100 ML IV SCH (02:24)
[2017-12-28] MEDS: LABETALOL HCL 5 MG/ML 20 ML VIAL IVP ONE ×2 (02:53→03:50)
[2017-12-28] MEDS ORDERED: LevETIRAcetam 750 MG in DEXTROSE 5%-WATER 100 ML IV ONE ×2 (05:00→09:00)
[2017-12-28] MEDS ORDERED: LORazepam 2 MG/ML VIAL IVP ONE (05:00)
[2017-12-28] MEDS: PIPERACILLIN/TAZO 3.375 GM/D5W 50 ML IV SCH ×3 (06:07→17:10)
[2017-12-28 06:23] LABS: GLUCOSE,POINT OF CARE 165 MG/DL (70-110)
[2017-12-28] MEDS ORDERED: IPRATROPIUM BROMIDE 0.5 MG/2.5 ML NEB SOLUTION NEB SCH (07:00)
[2017-12-28 08:13] VITALS: BP 167/105
[2017-12-28] MEDS: HEPARIN SODIUM,PORCINE 5,000 UNITS/ML VIAL SQ SCH ×2 (08:17→20:27)
[2017-12-28 08:38] LABS: BASOPHILS % (AUTO) 0.4 % (0.0-2.0); EOSINOPHILS % (AUTO) 0 % (1.0-6.0); HEMATOCRIT 36.2 % (41-53); HEMOGLOBIN 12.7 g/dL (13.5-17.5); LYMPHOCYTES # (AUTO) 0.6 K/uL (1.0-4.8); MEAN CORPUSCULAR HEMOGLOBIN 33.4 pg (26.0-34.0); MEAN CORPUSCULAR HGB CONC 35.2 G/dL (31.0-37.0); MEAN CORPUSCULAR VOLUME 95 fL (80-100); MONOCYTES # (AUTO) 0.1 K/uL (0.1-1.0); MONOCYTES % (AUTO) 0.9 % (2.0-9.0); NEUTROPHILS # (AUTO) 9.5 K/uL (1.8-7.7); RED BLOOD CELL COUNT(AUTO) 3.82 MIL/uL (4.50-5.90); RED CELL DISTRIBUTION WIDTH 13.4 % (11.5-14.5)
[2017-12-28] MEDS: LevETIRAcetam 100 MG/ML 5 ML SOLUTION UDCUP GT SCH ×2 (08:40→20:28)
[2017-12-28 08:41] LABS: NEUTROPHILS % (AUTO) 92.7 % (40.0-70.0)
[2017-12-28] MEDS ORDERED: ENOXAPARIN SODIUM 40 MG/0.4 ML PF SYRINGE SQ SCH ×2 (09:00)
[2017-12-28] MEDS ORDERED: DIAZEPAM 5 MG/ML 2 ML SYRINGE IVP ONE (09:00)
[2017-12-28] MEDS ORDERED: PANTOPRAZOLE SODIUM 40 MG/VIAL IVP ONE (09:00)
[2017-12-28 09:07] LABS: ANION GAP 9 mmol/L (8-16); CARBON DIOXIDE 31 mmol/L (22-29); CHLORIDE 108 mmol/L (98-107); CREATININE 0.92 mg/dL (0.60-1.30); GLOMERULAR FILTR. RATE CALC > 60 mL/min (>60); GLUCOSE,RANDOM 154 mg/dL (70-110); POTASSIUM 3.4 mmol/L (3.5-5.1); SODIUM SERUM 148 mmol/L (136-145); UREA NITROGEN, BLOOD 14 mg/dL (7-18)
[2017-12-28 09:13] LABS: ALANINE AMINOTRANSFERASE 37 U/L (12-78); ALBUMIN 3.2 g/dL (3.4-5.0); ALKALINE PHOSPHATASE 56 U/L (46-116); ASPARTATE AMINOTRANSFERASE 38 U/L (15-37); BILIRUBIN,TOTAL 0.5 mg/dL (0.1-1.0); PHOSPHORUS 2.4 mg/dL (2.5-4.9); TOTAL PROTEIN, SERUM 7.4 g/dL (6.4-8.2)
[2017-12-28 09:32] LABS: PLATELET COUNT (AUTO) 197 K/uL (150-450)
[2017-12-28 11:12] VITALS: BP 170/94
[2017-12-28] MEDS: IPRATROPIUM BROMIDE 0.5 MG/2.5 ML NEB SOLUTION NEB PRN (11:37)
[2017-12-28 12:52] VITALS: BP 151/91
[2017-12-28] MEDS ORDERED: SODIUM CHLORIDE 0.45% 1,000 ML IV ONE (15:00)
[2017-12-28 15:26] VITALS: BP 156/102
[2017-12-28] MEDS: POTASSIUM CHLORIDE 10% 40 MEQ/30 ML LIQUID UDCUP GT PRN (17:12)
[2017-12-28] MEDS ORDERED: LEVOFLOXACIN 750 MG/D5% WATER 150 ML IV ONE (18:00)
[2017-12-28 19:31] VITALS: BP 159/97
[2017-12-29] VITALS (9 sets, daily range): BP systolic 141–175; BP diastolic 80–111
[2017-12-29] MEDS: LEVOFLOXACIN 500 MG/D5% WATER 100 ML IV SCH (00:14)
[2017-12-29] MEDS: PIPERACILLIN/TAZO 3.375 GM/D5W 50 ML IV SCH ×4 (00:19→18:20)
[2017-12-29] MEDS: POTASSIUM CHLORIDE 10% 40 MEQ/30 ML LIQUID UDCUP GT PRN (00:56)
[2017-12-29 06:52] LABS: EOSINOPHILS % (AUTO) 0 % (1.0-6.0); HEMATOCRIT 35.8 % (41-53); HEMOGLOBIN 12.3 g/dL (13.5-17.5); LYMPHOCYTES # (AUTO) 1.4 K/uL (1.0-4.8); LYMPHOCYTES % (AUTO) 11.9 % (22.0-44.0); MEAN CORPUSCULAR HEMOGLOBIN 32.9 pg (26.0-34.0); MEAN CORPUSCULAR HGB CONC 34.4 G/dL (31.0-37.0); MEAN CORPUSCULAR VOLUME 96 fL (80-100); MONOCYTES # (AUTO) 0.9 K/uL (0.1-1.0); MONOCYTES % (AUTO) 7.8 % (2.0-9.0); NEUTROPHILS # (AUTO) 9.4 K/uL (1.8-7.7); NEUTROPHILS % (AUTO) 80.3 % (40.0-70.0); PLATELET COUNT (AUTO) 209 K/uL (150-450); RED BLOOD CELL COUNT(AUTO) 3.75 MIL/uL (4.50-5.90); RED CELL DISTRIBUTION WIDTH 13.5 % (11.5-14.5)
[2017-12-29 07:11] LABS: ANION GAP 9 mmol/L (8-16); CALCIUM, TOTAL 8.9 mg/dL (8.8-10.5); CARBON DIOXIDE 29 mmol/L (22-29); CHLORIDE 113 mmol/L (98-107); CREATININE 0.98 mg/dL (0.60-1.30); GLOMERULAR FILTR. RATE CALC > 60 mL/min (>60); GLUCOSE,RANDOM 100 mg/dL (70-110); POTASSIUM 3.8 mmol/L (3.5-5.1); SODIUM SERUM 151 mmol/L (136-145); UREA NITROGEN, BLOOD 18 mg/dL (7-18)
[2017-12-29] MEDS: LevETIRAcetam 100 MG/ML 5 ML SOLUTION UDCUP GT SCH ×3 (09:00→21:52)
[2017-12-29] MEDS: HEPARIN SODIUM,PORCINE 5,000 UNITS/ML VIAL SQ SCH (09:52)
[2017-12-29 11:13] LABS: INR 1.1 (0.9-1.1); PROTHROMBIN TIME 11.2 SEC (9.4-11.6)
[2017-12-29 12:44] LABS: GLUCOMETER DEV NAME(LOC) 5N 2S; GLUCOSE,POINT OF CARE 93 MG/DL (70-110)
[2017-12-29] MEDS ORDERED: CloNIDine HCL 0.1 MG TABLET PO PRN (20:15)
[2017-12-29] MEDS ORDERED: HydrALAZINE HCL 20 MG/ML VIAL IVP PRN (20:45)
[2017-12-29 20:53] LABS: GLUCOMETER DEV NAME(LOC) 5N 2S; GLUCOSE,POINT OF CARE 111 MG/DL (70-110)
[2017-12-30] VITALS (7 sets, daily range): BP systolic 86–164; BP diastolic 50–88
[2017-12-30] MEDS: PIPERACILLIN/TAZO 3.375 GM/D5W 50 ML IV SCH ×4 (00:25→18:24)
[2017-12-30] MEDS: LEVOFLOXACIN 500 MG/D5% WATER 100 ML IV SCH (01:18)
[2017-12-30 06:53] LABS: HEMOGLOBIN 12.3 g/dL (13.5-17.5); MEAN CORPUSCULAR HEMOGLOBIN 32.8 pg (26.0-34.0); MEAN CORPUSCULAR HGB CONC 34.3 G/dL (31.0-37.0); MEAN CORPUSCULAR VOLUME 96 fL (80-100); PLATELET COUNT (AUTO) 225 K/uL (150-450); RED BLOOD CELL COUNT(AUTO) 3.76 MIL/uL (4.50-5.90); RED CELL DISTRIBUTION WIDTH 13.4 % (11.5-14.5)
[2017-12-30] MEDS ORDERED: SODIUM CHLORIDE 0.9% 1,000 ML IV ONE ×2 (08:08→10:00)
[2017-12-30 11:16] LABS: BAND NEUTROPHILS % (MANUAL) 6 % (0-5); EOSINOPHILS % (MANUAL) 1 % (1-6); LYMPHOCYTES % (MANUAL) 28 % (22-44); MONOCYTES % (MANUAL) 5 % (2-9); SEGMENTED NEUTROPHILS % 60 % (40-70)
[2017-12-30] MEDS ORDERED: LIDOCAINE HCL/PF 2% 5 ML VIAL INJ ONE (12:00)
[2017-12-30] MEDS ORDERED: EPHEDrine SULFATE 50 MG/ML VIAL IM ONE (12:00)
[2017-12-30] MEDS ORDERED: PROPOFOL 1% 20 ML VIAL IVP ONE (12:00)
[2017-12-30] MEDS ORDERED: GLYCOPYRROLATE 0.2 MG/ML VIAL IM ONE (12:00)
[2017-12-30] MEDS: POVIDONE-IODINE 10% 120 ML SOLUTION TP SCH (12:25)
[2017-12-30] MEDS: HYDROGEN PEROXIDE 473 ML SOLUTION TP SCH (12:25)
[2017-12-30 14:36] LABS: ANION GAP 10 mmol/L (8-16); CALCIUM, TOTAL 8.9 mg/dL (8.8-10.5); CARBON DIOXIDE 30 mmol/L (22-29); CHLORIDE 111 mmol/L (98-107); CREATININE 1.01 mg/dL (0.60-1.30); GLOMERULAR FILTR. RATE CALC > 60 mL/min (>60); GLUCOSE,RANDOM 106 mg/dL (70-110); POTASSIUM 3.1 mmol/L (3.5-5.1); SODIUM SERUM 151 mmol/L (136-145); UREA NITROGEN, BLOOD 18 mg/dL (7-18)
[2017-12-30] MEDS: LevETIRAcetam 100 MG/ML 5 ML SOLUTION UDCUP GT SCH ×2 (15:05→21:38)
[2017-12-30] MEDS: ACETAMINOPHEN 650 MG/20.3 ML SOLUTION UDCUP GT PRN (15:05)
[2017-12-30] MEDS: POTASSIUM CHL 10 MEQ/WATER 50 ML IV PRN ×3 (18:24→21:52)
[2017-12-30 18:45] LABS: GLUCOMETER DEV NAME(LOC) 5S 2N; GLUCOSE,POINT OF CARE 111 MG/DL (70-110)
[2017-12-30 18:45] LABS: GLUCOMETER DEV NAME(LOC) 5S 2N; GLUCOSE,POINT OF CARE 108 MG/DL (70-110)
[2017-12-31] MEDS: LEVOFLOXACIN 500 MG/D5% WATER 100 ML IV SCH (00:32)
[2017-12-31] MEDS: PIPERACILLIN/TAZO 3.375 GM/D5W 50 ML IV SCH ×4 (00:42→18:34)
[2017-12-31] MEDS: POTASSIUM CHLORIDE 10% 40 MEQ/30 ML LIQUID UDCUP GT PRN ×3 (01:50→16:04)
[2017-12-31 03:26] VITALS: BP 154/83
[2017-12-31 06:10] LABS: BASOPHILS % (AUTO) 0.4 % (0.0-2.0); EOSINOPHILS % (AUTO) 0.7 % (1.0-6.0); HEMATOCRIT 36.7 % (41-53); HEMOGLOBIN 12.7 g/dL (13.5-17.5); LYMPHOCYTES # (AUTO) 1.2 K/uL (1.0-4.8); LYMPHOCYTES % (AUTO) 16.6 % (22.0-44.0); MEAN CORPUSCULAR HEMOGLOBIN 33.1 pg (26.0-34.0); MEAN CORPUSCULAR HGB CONC 34.5 G/dL (31.0-37.0); MEAN CORPUSCULAR VOLUME 96 fL (80-100); MONOCYTES # (AUTO) 0.8 K/uL (0.1-1.0); MONOCYTES % (AUTO) 11.2 % (2.0-9.0); NEUTROPHILS % (AUTO) 71.1 % (40.0-70.0); PLATELET COUNT (AUTO) 224 K/uL (150-450); RED BLOOD CELL COUNT(AUTO) 3.83 MIL/uL (4.50-5.90); RED CELL DISTRIBUTION WIDTH 13.3 % (11.5-14.5)
[2017-12-31 06:51] LABS: ALANINE AMINOTRANSFERASE 58 U/L (12-78); ALBUMIN 3.2 g/dL (3.4-5.0); ALKALINE PHOSPHATASE 49 U/L (46-116); ANION GAP 9 mmol/L (8-16); ASPARTATE AMINOTRANSFERASE 47 U/L (15-37); BILIRUBIN,TOTAL 0.5 mg/dL (0.1-1.0); CALCIUM, TOTAL 9.1 mg/dL (8.8-10.5); CARBON DIOXIDE 30 mmol/L (22-29); CHLORIDE 112 mmol/L (98-107); CREATININE 0.98 mg/dL (0.60-1.30); GLOMERULAR FILTR. RATE CALC > 60 mL/min (>60); GLUCOSE,RANDOM 125 mg/dL (70-110); POTASSIUM 3.7 mmol/L (3.5-5.1); SODIUM SERUM 151 mmol/L (136-145); TOTAL PROTEIN, SERUM 6.8 g/dL (6.4-8.2); UREA NITROGEN, BLOOD 18 mg/dL (7-18)
[2017-12-31 07:08] VITALS: BP 158/86
[2017-12-31] MEDS: LevETIRAcetam 100 MG/ML 5 ML SOLUTION UDCUP GT SCH ×2 (08:10→20:19)
[2017-12-31] MEDS: POVIDONE-IODINE 10% 120 ML SOLUTION TP SCH (08:19)
[2017-12-31] MEDS: HYDROGEN PEROXIDE 473 ML SOLUTION TP SCH (08:19)
[2017-12-31 11:03] VITALS: BP 158/84
[2017-12-31 15:43] VITALS: BP 105/81
[2017-12-31] MEDS: CAFFEINE 200 MG TABLET GT SCH ×2 (16:08→20:19)
[2017-12-31 19:52] VITALS: BP 116/77
[2017-12-31] MEDS ORDERED: 0.9% SODIUM CHLORIDE 5 ML NEB SOLUTION NEB ONE (21:20)
[2017-12-31] MEDS: ALBUTEROL SULFATE 2.5 MG/0.5 ML NEB SOLUTION NEB SCH (21:27)
[2017-12-31 23:37] VITALS: BP 166/97
[2018-01-01] MEDS ORDERED: SODIUM CHLORIDE 0.9% 250 ML IV ONE ×2 (00:27→00:59)
[2018-01-01] MEDS: LEVOFLOXACIN 500 MG/D5% WATER 100 ML IV SCH ×2 (00:33→23:59)
[2018-01-01] MEDS: PIPERACILLIN/TAZO 3.375 GM/D5W 50 ML IV SCH ×4 (00:33→18:22)
[2018-01-01] MEDS: HydrALAZINE HCL 20 MG/ML VIAL IVP PRN ×3 (00:40→21:24)
[2018-01-01] MEDS: MORPHINE SULFATE 4 MG/ML SYRINGE IVP PRN (05:11)
[2018-01-01 05:28] VITALS: BP 188/83
[2018-01-01 06:24] LABS: HEMATOCRIT 40.8 % (41-53); HEMOGLOBIN 14.1 g/dL (13.5-17.5); MEAN CORPUSCULAR HEMOGLOBIN 32.9 pg (26.0-34.0); MEAN CORPUSCULAR HGB CONC 34.6 G/dL (31.0-37.0); MEAN CORPUSCULAR VOLUME 95 fL (80-100); PLATELET COUNT (AUTO) 234 K/uL (150-450); RED BLOOD CELL COUNT(AUTO) 4.29 MIL/uL (4.50-5.90); RED CELL DISTRIBUTION WIDTH 13.2 % (11.5-14.5)
[2018-01-01 07:07] LABS: BILIRUBIN,TOTAL 0.7 mg/dL (0.1-1.0); CHLORIDE 111 mmol/L (98-107); GLOMERULAR FILTR. RATE CALC > 60 mL/min (>60); SODIUM SERUM 152 mmol/L (136-145); UREA NITROGEN, BLOOD 14 mg/dL (7-18)
[2018-01-01 07:09] LABS: ALANINE AMINOTRANSFERASE 62 U/L (12-78); ALBUMIN 3.6 g/dL (3.4-5.0); ALKALINE PHOSPHATASE 61 U/L (46-116); ANION GAP 12 mmol/L (8-16); ASPARTATE AMINOTRANSFERASE 44 U/L (15-37); CALCIUM, TOTAL 9.6 mg/dL (8.8-10.5); CARBON DIOXIDE 29 mmol/L (22-29); GLUCOSE,RANDOM 119 mg/dL (70-110); TOTAL PROTEIN, SERUM 7.8 g/dL (6.4-8.2)
[2018-01-01] MEDS: IPRATROPIUM BROMIDE 0.5 MG/2.5 ML NEB SOLUTION NEB PRN (07:12)
[2018-01-01] MEDS: ALBUTEROL SULFATE 2.5 MG/0.5 ML NEB SOLUTION NEB SCH ×2 (07:13→20:30)
[2018-01-01 08:08] LABS: BAND NEUTROPHILS % (MANUAL) 6 % (0-5); EOSINOPHILS % (MANUAL) 1 % (1-6); LYMPHOCYTES % (MANUAL) 13 % (22-44); MONOCYTES % (MANUAL) 8 % (2-9); SEGMENTED NEUTROPHILS % 72 % (40-70)
[2018-01-01] MEDS: POTASSIUM CHLORIDE 10% 40 MEQ/30 ML LIQUID UDCUP GT PRN (08:10)
[2018-01-01] MEDS: CAFFEINE 200 MG TABLET GT SCH ×3 (08:10→21:24)
[2018-01-01] MEDS: LevETIRAcetam 100 MG/ML 5 ML SOLUTION UDCUP GT SCH ×2 (08:10→21:24)
[2018-01-01] MEDS: HYDROGEN PEROXIDE 473 ML SOLUTION TP SCH (08:21)
[2018-01-01] MEDS: POVIDONE-IODINE 10% 120 ML SOLUTION TP SCH (08:21)
[2018-01-01 08:24] VITALS: BP 166/107
[2018-01-01] MEDS: LORazepam 2 MG/ML VIAL IVP PRN (09:02)
[2018-01-01 11:55] VITALS: BP 146/103
[2018-01-01] MEDS: POTASSIUM CHL 10 MEQ/WATER 50 ML IV PRN ×4 (13:11→17:10)
[2018-01-01 15:31] VITALS: BP 132/98
[2018-01-01] MEDS ORDERED: 0.9% SODIUM CHLORIDE 5 ML NEB SOLUTION NEB ONE (19:04)
[2018-01-01 20:09] VITALS: BP 184/86
[2018-01-01 23:53] VITALS: BP 154/104
[2018-01-02] VITALS (7 sets, daily range): BP systolic 140–180; BP diastolic 95–104
[2018-01-02] MEDS: PIPERACILLIN/TAZO 3.375 GM/D5W 50 ML IV SCH ×5 (01:11→23:21)
[2018-01-02] MEDS: ACETAMINOPHEN 650 MG/20.3 ML SOLUTION UDCUP GT PRN (01:12)
[2018-01-02] MEDS: HydrALAZINE HCL 20 MG/ML VIAL IVP PRN ×3 (03:47→23:27)
[2018-01-02] MEDS: POTASSIUM CHL 10 MEQ/WATER 50 ML IV PRN ×7 (04:11→15:30)
[2018-01-02] MEDS ORDERED: SODIUM CHLORIDE 0.9% 500 ML IV ONE (04:21)
[2018-01-02] MEDS: MORPHINE SULFATE 4 MG/ML SYRINGE IVP PRN (07:37)
[2018-01-02] MEDS: ALBUTEROL SULFATE 2.5 MG/0.5 ML NEB SOLUTION NEB SCH ×2 (07:46→21:06)
[2018-01-02] MEDS: LevETIRAcetam 100 MG/ML 5 ML SOLUTION UDCUP GT SCH ×2 (09:04→21:04)
[2018-01-02] MEDS: CAFFEINE 200 MG TABLET GT SCH ×3 (09:05→21:04)
[2018-01-02] MEDS: HYDROGEN PEROXIDE 473 ML SOLUTION TP SCH (09:05)
[2018-01-02] MEDS: POVIDONE-IODINE 10% 120 ML SOLUTION TP SCH (09:05)
[2018-01-02] MEDS: LORazepam 2 MG/ML VIAL IVP PRN ×2 (09:10→16:24)
[2018-01-02] MEDS ORDERED: POTASSIUM CHLORIDE 10% 40 MEQ/30 ML LIQUID UDCUP JT ONE (11:00)
[2018-01-02] MEDS ORDERED: SPIRONOLACTONE 25 MG TABLET PO SCH (13:00)
[2018-01-02] MEDS ORDERED: 0.9% SODIUM CHLORIDE 5 ML NEB SOLUTION NEB ONE (19:26)
[2018-01-02] MEDS: OXYGEN THERAPY IH SCH (21:04)
[2018-01-02] MEDS: LEVOFLOXACIN 500 MG/D5% WATER 100 ML IV SCH (23:59)
[2018-01-03] MEDS: POTASSIUM CHLORIDE 10% 40 MEQ/30 ML LIQUID UDCUP GT PRN ×3 (00:18→15:35)
[2018-01-03] MEDS: LORazepam 2 MG/ML VIAL IVP PRN ×3 (00:55→10:48)
[2018-01-03] MEDS: ACETAMINOPHEN 650 MG/20.3 ML SOLUTION UDCUP GT PRN ×2 (04:06→11:41)
[2018-01-03 04:12] VITALS: BP 168/105
[2018-01-03] MEDS: PIPERACILLIN/TAZO 3.375 GM/D5W 50 ML IV SCH ×4 (05:22→23:59)
[2018-01-03 07:59] VITALS: BP 161/93
[2018-01-03] MEDS ORDERED: 0.9% SODIUM CHLORIDE 5 ML NEB SOLUTION NEB ONE ×2 (08:48→19:42)
[2018-01-03 09:10] LABS: BASOPHILS % (AUTO) 0.1 % (0.0-2.0); EOSINOPHILS % (AUTO) 0.2 % (1.0-6.0); HEMATOCRIT 44.2 % (41-53); HEMOGLOBIN 14.8 g/dL (13.5-17.5); LYMPHOCYTES % (AUTO) 8.2 % (22.0-44.0); MEAN CORPUSCULAR HEMOGLOBIN 32.2 pg (26.0-34.0); MEAN CORPUSCULAR HGB CONC 33.6 G/dL (31.0-37.0); MEAN CORPUSCULAR VOLUME 96 fL (80-100); MONOCYTES # (AUTO) 0.9 K/uL (0.1-1.0); MONOCYTES % (AUTO) 7.1 % (2.0-9.0); NEUTROPHILS # (AUTO) 10.2 K/uL (1.8-7.7); NEUTROPHILS % (AUTO) 84.4 % (40.0-70.0); PLATELET COUNT (AUTO) 277 K/uL (150-450); RED BLOOD CELL COUNT(AUTO) 4.61 MIL/uL (4.50-5.90); RED CELL DISTRIBUTION WIDTH 13.8 % (11.5-14.5)
[2018-01-03 09:22] LABS: ALANINE AMINOTRANSFERASE 40 U/L (12-78); ALBUMIN 5.3 g/dL (3.4-5.0); ALKALINE PHOSPHATASE 53 U/L (46-116); ANION GAP 12 mmol/L (8-16); ASPARTATE AMINOTRANSFERASE 25 U/L (15-37); CALCIUM, TOTAL 10.2 mg/dL (8.8-10.5); CARBON DIOXIDE 26 mmol/L (22-29); CHLORIDE 115 mmol/L (98-107); CREATININE 1.25 mg/dL (0.60-1.30); GLOMERULAR FILTR. RATE CALC 60 mL/min (>60); GLUCOSE,RANDOM 152 mg/dL (70-110); POTASSIUM 3.2 mmol/L (3.5-5.1); SODIUM SERUM 153 mmol/L (136-145); TOTAL PROTEIN, SERUM 6.2 g/dL (6.4-8.2); UREA NITROGEN, BLOOD 17 mg/dL (7-18)
[2018-01-03] MEDS: SPIRONOLACTONE 50 MG TABLET PO SCH (09:28)
[2018-01-03] MEDS: OXYGEN THERAPY IH SCH ×2 (09:28→20:45)
[2018-01-03 09:29] LABS: BILIRUBIN,TOTAL < 0.1 mg/dL (0.1-1.0)
[2018-01-03] MEDS: CAFFEINE 200 MG TABLET GT SCH ×2 (09:29→20:47)
[2018-01-03] MEDS: POVIDONE-IODINE 10% 120 ML SOLUTION TP SCH (09:30)
[2018-01-03] MEDS: HYDROGEN PEROXIDE 473 ML SOLUTION TP SCH (09:30)
[2018-01-03] MEDS: LevETIRAcetam 1,000 MG in DEXTROSE 5%-WATER 100 ML IV SCH ×2 (09:35→20:48)
[2018-01-03 09:40] LABS: VALPROIC ACID < 3 mcg/mL (50-100)
[2018-01-03] MEDS ORDERED: SODIUM CHLORIDE 0.9% 250 ML IV ONE ×2 (09:47→20:25)
[2018-01-03] MEDS ORDERED: PHENYTOIN SODIUM 1,000 MG in SODIUM CHLORIDE 0.9% 150 ML IV ONE (11:00)
[2018-01-03] MEDS: ALBUTEROL SULFATE 2.5 MG/0.5 ML NEB SOLUTION NEB SCH ×2 (11:34→20:29)
[2018-01-03] MEDS: HydrALAZINE HCL 25 MG TABLET JT SCH ×2 (11:41→18:25)
[2018-01-03 11:42] VITALS: BP 156/111
[2018-01-03 15:06] VITALS: BP 164/94
[2018-01-03] MEDS ORDERED: DEXTROSE 5%-WATER 1,000 ML IV ONE (15:15)
[2018-01-03 19:13] VITALS: BP 161/109
[2018-01-03 20:15] LABS: APPEARANCE,URINE CLEAR (CLEAR); BILIRUBIN,URINE NEGATIVE (NEGATIVE); GLUCOSE, URINE (UA) NEGATIVE (NEGATIVE); KETONES,URINE NEGATIVE (NEGATIVE); LEUKOCYTE ESTERASE ,URINE NEGATIVE (NEGATIVE); NITRATE,URINE NEGATIVE (NEGATIVE); OCCULT BLOOD,URINE NEGATIVE (NEGATIVE); PROTEIN,URINE POS 1+ (NEGATIVE); UROBILINOGEN,URINE 0.2 mg/dL (<=1.0)
[2018-01-03 21:21] LABS: RBC,URINE 0-2 /HPF (0-2); WBC,URINE 0-2 /HPF (0-5)
[2018-01-03 21:22] LABS: BACTERIA,URINE Rare /HPF (None Seen); SQUAMOUS EPITHELIAL CELL,UR Rare /LPF (None Seen); YEAST,URINE Few /HPF (None Seen)
[2018-01-04] VITALS (8 sets, daily range): BP systolic 127–158; BP diastolic 60–97
[2018-01-04] MEDS: HydrALAZINE HCL 25 MG TABLET JT SCH ×5 (00:14→23:41)
[2018-01-04] MEDS: LEVOFLOXACIN 500 MG/D5% WATER 100 ML IV SCH (00:29)
[2018-01-04] MEDS: PIPERACILLIN/TAZO 3.375 GM/D5W 50 ML IV SCH ×4 (05:50→23:37)
[2018-01-04 05:57] LABS: BASOPHILS % (AUTO) 0.3 % (0.0-2.0); EOSINOPHILS % (AUTO) 2.8 % (1.0-6.0); HEMATOCRIT 41.8 % (41-53); HEMOGLOBIN 14.3 g/dL (13.5-17.5); LYMPHOCYTES # (AUTO) 1.5 K/uL (1.0-4.8); LYMPHOCYTES % (AUTO) 13.1 % (22.0-44.0); MEAN CORPUSCULAR HGB CONC 34.1 G/dL (31.0-37.0); MEAN CORPUSCULAR VOLUME 97 fL (80-100); MONOCYTES # (AUTO) 1.1 K/uL (0.1-1.0); MONOCYTES % (AUTO) 10.1 % (2.0-9.0); NEUTROPHILS # (AUTO) 8.4 K/uL (1.8-7.7); NEUTROPHILS % (AUTO) 73.7 % (40.0-70.0); PLATELET COUNT (AUTO) 249 K/uL (150-450); RED BLOOD CELL COUNT(AUTO) 4.33 MIL/uL (4.50-5.90); RED CELL DISTRIBUTION WIDTH 13.8 % (11.5-14.5)
[2018-01-04 06:10] LABS: B-TYPE NATRIURETIC PEPTIDE 18 pg/mL (0-100)
[2018-01-04 06:54] LABS: ALANINE AMINOTRANSFERASE 33 U/L (12-78); ALBUMIN 3.1 g/dL (3.4-5.0); ALKALINE PHOSPHATASE 49 U/L (46-116); ANION GAP 7 mmol/L (8-16); ASPARTATE AMINOTRANSFERASE 21 U/L (15-37); BILIRUBIN,TOTAL 0.4 mg/dL (0.1-1.0); CALCIUM, TOTAL 9.8 mg/dL (8.8-10.5); CARBON DIOXIDE 29 mmol/L (22-29); CHLORIDE 112 mmol/L (98-107); CREATININE 0.96 mg/dL (0.60-1.30); GLOMERULAR FILTR. RATE CALC > 60 mL/min (>60); GLUCOSE,RANDOM 104 mg/dL (70-110); POTASSIUM 3.5 mmol/L (3.5-5.1); SODIUM SERUM 148 mmol/L (136-145); TOTAL PROTEIN, SERUM 7.4 g/dL (6.4-8.2); UREA NITROGEN, BLOOD 15 mg/dL (7-18)
[2018-01-04] MEDS: OXYGEN THERAPY IH SCH ×2 (08:00→21:01)
[2018-01-04] MEDS: ALBUTEROL SULFATE 2.5 MG/0.5 ML NEB SOLUTION NEB SCH ×2 (08:19→20:20)
[2018-01-04] MEDS: CAFFEINE 200 MG TABLET GT SCH ×2 (08:40→21:01)
[2018-01-04] MEDS: SPIRONOLACTONE 50 MG TABLET PO SCH (08:40)
[2018-01-04] MEDS: ACETAMINOPHEN 650 MG/20.3 ML SOLUTION UDCUP GT PRN (08:41)
[2018-01-04] MEDS: LevETIRAcetam 1,000 MG in DEXTROSE 5%-WATER 100 ML IV SCH (08:41)
[2018-01-04] MEDS: POVIDONE-IODINE 10% 120 ML SOLUTION TP SCH (08:41)
[2018-01-04] MEDS: HYDROGEN PEROXIDE 473 ML SOLUTION TP SCH (08:42)
[2018-01-04] MEDS ORDERED: 0.9% SODIUM CHLORIDE 5 ML NEB SOLUTION NEB ONE (20:16)
[2018-01-04] MEDS: HydrALAZINE HCL 20 MG/ML VIAL IVP PRN (20:49)
[2018-01-04] MEDS ORDERED: LevETIRAcetam 500 MG TABLET GT SCH (21:00)
[2018-01-04] MEDS: LevETIRAcetam 100 MG/ML 5 ML SOLUTION UDCUP PEG SCH (21:01)
[2018-01-04] MEDS: POTASSIUM CHLORIDE 10% 40 MEQ/30 ML LIQUID UDCUP GT PRN (21:03)
[2018-01-05] VITALS (7 sets, daily range): BP systolic 127–160; BP diastolic 66–99
[2018-01-05] MEDS: LEVOFLOXACIN 500 MG/D5% WATER 100 ML IV SCH (00:37)
[2018-01-05] MEDS: PIPERACILLIN/TAZO 3.375 GM/D5W 50 ML IV SCH ×4 (05:56→23:31)
[2018-01-05] MEDS: HydrALAZINE HCL 25 MG TABLET JT SCH ×4 (05:57→23:31)
[2018-01-05] MEDS: LORazepam 2 MG/ML VIAL IVP PRN (06:21)
[2018-01-05] MEDS ORDERED: 0.9% SODIUM CHLORIDE 5 ML NEB SOLUTION NEB ONE ×2 (07:10→20:08)
[2018-01-05] MEDS: ALBUTEROL SULFATE 2.5 MG/0.5 ML NEB SOLUTION NEB SCH ×2 (08:32→20:15)
[2018-01-05] MEDS: OXYGEN THERAPY IH SCH ×2 (08:46→20:41)
[2018-01-05] MEDS: HYDROGEN PEROXIDE 473 ML SOLUTION TP SCH (08:47)
[2018-01-05] MEDS: LevETIRAcetam 100 MG/ML 5 ML SOLUTION UDCUP PEG SCH ×2 (08:47→20:42)
[2018-01-05] MEDS: SPIRONOLACTONE 50 MG TABLET PO SCH (08:47)
[2018-01-05] MEDS: POVIDONE-IODINE 10% 120 ML SOLUTION TP SCH (08:47)
[2018-01-05] MEDS: CAFFEINE 200 MG TABLET GT SCH ×2 (08:49→20:42)
[2018-01-05] MEDS: POTASSIUM CHLORIDE 10% 40 MEQ/30 ML LIQUID UDCUP GT PRN ×2 (10:53→20:43)
[2018-01-05] MEDS ORDERED: SODIUM CHLORIDE 0.9% 100 ML ONE (12:35)
[2018-01-05 19:31] LABS: BASOPHILS % (AUTO) 0.6 % (0.0-2.0); EOSINOPHILS % (AUTO) 3.1 % (1.0-6.0); HEMATOCRIT 43.1 % (41-53); HEMOGLOBIN 14.8 g/dL (13.5-17.5); LYMPHOCYTES % (AUTO) 10.3 % (22.0-44.0); MEAN CORPUSCULAR HEMOGLOBIN 32.9 pg (26.0-34.0); MEAN CORPUSCULAR HGB CONC 34.2 G/dL (31.0-37.0); MEAN CORPUSCULAR VOLUME 96 fL (80-100); MONOCYTES # (AUTO) 0.9 K/uL (0.1-1.0); MONOCYTES % (AUTO) 8.9 % (2.0-9.0); NEUTROPHILS # (AUTO) 7.4 K/uL (1.8-7.7); NEUTROPHILS % (AUTO) 77.1 % (40.0-70.0); PLATELET COUNT (AUTO) 225 K/uL (150-450); RED BLOOD CELL COUNT(AUTO) 4.49 MIL/uL (4.50-5.90)
[2018-01-05 19:51] LABS: ANION GAP 5 mmol/L (8-16); CALCIUM, TOTAL 10.2 mg/dL (8.8-10.5); CARBON DIOXIDE 29 mmol/L (22-29); CHLORIDE 112 mmol/L (98-107); CREATININE 1.08 mg/dL (0.60-1.30); GLOMERULAR FILTR. RATE CALC > 60 mL/min (>60); GLUCOSE,RANDOM 122 mg/dL (70-110); POTASSIUM 3.7 mmol/L (3.5-5.1); SODIUM SERUM 146 mmol/L (136-145); UREA NITROGEN, BLOOD 19 mg/dL (7-18)
[2018-01-05 19:53] LABS: ALANINE AMINOTRANSFERASE 30 U/L (12-78); ALBUMIN 3.3 g/dL (3.4-5.0); ALKALINE PHOSPHATASE 50 U/L (46-116); ASPARTATE AMINOTRANSFERASE 25 U/L (15-37); BILIRUBIN,TOTAL 0.4 mg/dL (0.1-1.0); TOTAL PROTEIN, SERUM 7.5 g/dL (6.4-8.2)
[2018-01-05 20:09] LABS: PLATELET MORPHOLOGY COMMENT LARGE PLTS PRESENT
[2018-01-06] VITALS (7 sets, daily range): BP systolic 120–153; BP diastolic 72–98
[2018-01-06] MEDS: LEVOFLOXACIN 500 MG/D5% WATER 100 ML IV SCH ×2 (00:20→23:51)
[2018-01-06] MEDS: LORazepam 2 MG/ML VIAL IVP PRN ×2 (00:58→08:37)
[2018-01-06] MEDS: HydrALAZINE HCL 25 MG TABLET JT SCH ×4 (05:50→23:50)
[2018-01-06] MEDS: PIPERACILLIN/TAZO 3.375 GM/D5W 50 ML IV SCH ×4 (05:50→23:14)
[2018-01-06] MEDS ORDERED: SODIUM CHLORIDE 0.9% 100 ML ONE (06:00)
[2018-01-06 06:29] LABS: BASOPHILS % (AUTO) 0.3 % (0.0-2.0); EOSINOPHILS % (AUTO) 3.3 % (1.0-6.0); HEMATOCRIT 42.9 % (41-53); HEMOGLOBIN 14.7 g/dL (13.5-17.5); LYMPHOCYTES % (AUTO) 10.2 % (22.0-44.0); MEAN CORPUSCULAR HEMOGLOBIN 32.9 pg (26.0-34.0); MEAN CORPUSCULAR HGB CONC 34.2 G/dL (31.0-37.0); MEAN CORPUSCULAR VOLUME 96 fL (80-100); NEUTROPHILS # (AUTO) 7.7 K/uL (1.8-7.7); NEUTROPHILS % (AUTO) 76.2 % (40.0-70.0); PLATELET COUNT (AUTO) 229 K/uL (150-450); RED BLOOD CELL COUNT(AUTO) 4.46 MIL/uL (4.50-5.90); RED CELL DISTRIBUTION WIDTH 13.7 % (11.5-14.5)
[2018-01-06 06:55] LABS: ALANINE AMINOTRANSFERASE 30 U/L (12-78); ALBUMIN 3.1 g/dL (3.4-5.0); ALKALINE PHOSPHATASE 44 U/L (46-116); ANION GAP 4 mmol/L (8-16); ASPARTATE AMINOTRANSFERASE 24 U/L (15-37); BILIRUBIN,TOTAL 0.3 mg/dL (0.1-1.0); CALCIUM, TOTAL 10.2 mg/dL (8.8-10.5); CARBON DIOXIDE 31 mmol/L (22-29); CHLORIDE 111 mmol/L (98-107); CREATININE 1.11 mg/dL (0.60-1.30); GLOMERULAR FILTR. RATE CALC > 60 mL/min (>60); GLUCOSE,RANDOM 99 mg/dL (70-110); POTASSIUM 3.6 mmol/L (3.5-5.1); SODIUM SERUM 146 mmol/L (136-145); TOTAL PROTEIN, SERUM 7.5 g/dL (6.4-8.2); UREA NITROGEN, BLOOD 21 mg/dL (7-18)
[2018-01-06] MEDS: LevETIRAcetam 100 MG/ML 5 ML SOLUTION UDCUP PEG SCH ×2 (08:38→20:36)
[2018-01-06] MEDS: CAFFEINE 200 MG TABLET GT SCH ×2 (08:43→20:35)
[2018-01-06] MEDS: SPIRONOLACTONE 50 MG TABLET PO SCH (08:43)
[2018-01-06] MEDS: HYDROGEN PEROXIDE 473 ML SOLUTION TP SCH (08:44)
[2018-01-06] MEDS: POVIDONE-IODINE 10% 120 ML SOLUTION TP SCH (08:44)
[2018-01-06] MEDS: OXYGEN THERAPY IH SCH ×2 (08:45→20:35)
[2018-01-06] MEDS ORDERED: 0.9% SODIUM CHLORIDE 5 ML NEB SOLUTION NEB ONE ×2 (10:53→21:59)
[2018-01-06] MEDS ORDERED: AmLODIPine BESYLATE 5 MG TABLET JT ONE (11:00)
[2018-01-06] MEDS: ALBUTEROL SULFATE 2.5 MG/0.5 ML NEB SOLUTION NEB SCH ×2 (11:01→22:02)
[2018-01-06] MEDS: DEXTROSE 5%-WATER 1,000 ML IV SCH ×2 (12:20→20:37)
[2018-01-06 17:27] LABS: ANION GAP 7 mmol/L (8-16); CALCIUM, TOTAL 9.9 mg/dL (8.8-10.5); CARBON DIOXIDE 30 mmol/L (22-29); CHLORIDE 108 mmol/L (98-107); CREATININE 1.13 mg/dL (0.60-1.30); GLOMERULAR FILTR. RATE CALC > 60 mL/min (>60); GLUCOSE,RANDOM 112 mg/dL (70-110); POTASSIUM 3.5 mmol/L (3.5-5.1); SODIUM SERUM 145 mmol/L (136-145); UREA NITROGEN, BLOOD 22 mg/dL (7-18)
[2018-01-07] MEDS: POTASSIUM CHLORIDE 10% 40 MEQ/30 ML LIQUID UDCUP GT PRN (00:19)
[2018-01-07 04:24] VITALS: BP 141/81
[2018-01-07 05:50] VITALS: BP 116/48
[2018-01-07] MEDS: PIPERACILLIN/TAZO 3.375 GM/D5W 50 ML IV SCH ×2 (05:51→11:51)
[2018-01-07] MEDS: HydrALAZINE HCL 25 MG TABLET JT SCH ×2 (05:51→13:51)
[2018-01-07 06:28] LABS: BASOPHILS % (AUTO) 0.8 % (0.0-2.0); EOSINOPHILS % (AUTO) 3.9 % (1.0-6.0); HEMATOCRIT 40.3 % (41-53); HEMOGLOBIN 13.9 g/dL (13.5-17.5); LYMPHOCYTES # (AUTO) 1.5 K/uL (1.0-4.8); LYMPHOCYTES % (AUTO) 14.8 % (22.0-44.0); MEAN CORPUSCULAR HEMOGLOBIN 33.1 pg (26.0-34.0); MEAN CORPUSCULAR HGB CONC 34.6 G/dL (31.0-37.0); MEAN CORPUSCULAR VOLUME 96 fL (80-100); MONOCYTES # (AUTO) 0.9 K/uL (0.1-1.0); MONOCYTES % (AUTO) 9.2 % (2.0-9.0); NEUTROPHILS # (AUTO) 7.2 K/uL (1.8-7.7); NEUTROPHILS % (AUTO) 71.3 % (40.0-70.0); PLATELET COUNT (AUTO) 196 K/uL (150-450); RED BLOOD CELL COUNT(AUTO) 4.21 MIL/uL (4.50-5.90); RED CELL DISTRIBUTION WIDTH 13.7 % (11.5-14.5)
[2018-01-07 06:46] LABS: ALANINE AMINOTRANSFERASE 30 U/L (12-78); ALBUMIN 3.1 g/dL (3.4-5.0); ALKALINE PHOSPHATASE 47 U/L (46-116); ANION GAP 6 mmol/L (8-16); ASPARTATE AMINOTRANSFERASE 27 U/L (15-37); BILIRUBIN,TOTAL 0.2 mg/dL (0.1-1.0); CALCIUM, TOTAL 9.9 mg/dL (8.8-10.5); CARBON DIOXIDE 30 mmol/L (22-29); CHLORIDE 105 mmol/L (98-107); CREATININE 1.08 mg/dL (0.60-1.30); GLOMERULAR FILTR. RATE CALC > 60 mL/min (>60); GLUCOSE,RANDOM 129 mg/dL (70-110); POTASSIUM 3.9 mmol/L (3.5-5.1); SODIUM SERUM 141 mmol/L (136-145); UREA NITROGEN, BLOOD 22 mg/dL (7-18)
[2018-01-07 07:40] VITALS: BP 134/59
[2018-01-07] MEDS: OXYGEN THERAPY IH SCH (08:21)
[2018-01-07] MEDS: CAFFEINE 200 MG TABLET GT SCH (08:22)
[2018-01-07] MEDS: SPIRONOLACTONE 50 MG TABLET PO SCH (08:22)
[2018-01-07] MEDS: DEXTROSE 5%-WATER 1,000 ML IV SCH (08:22)
[2018-01-07] MEDS: LevETIRAcetam 100 MG/ML 5 ML SOLUTION UDCUP PEG SCH (08:22)
[2018-01-07] MEDS: HYDROGEN PEROXIDE 473 ML SOLUTION TP SCH (08:22)
[2018-01-07] MEDS: POVIDONE-IODINE 10% 120 ML SOLUTION TP SCH (08:23)
[2018-01-07] MEDS ORDERED: 0.9% SODIUM CHLORIDE 5 ML NEB SOLUTION NEB ONE (09:58)
[2018-01-07 11:53] VITALS: BP 173/69
[2018-01-07] MEDS: ALBUTEROL SULFATE 2.5 MG/0.5 ML NEB SOLUTION NEB SCH (13:15)
[2018-01-07] MEDS ORDERED: DIAZEPAM 5 MG TABLET PO PRN (14:00)
[2018-01-07] MEDS ORDERED: DIAZ5 PO ×2 (14:16→14:17)
[2018-01-07 15:33] VITALS: BP 115/64
[2018-01-07] MEDS ORDERED: CALCIUM OYSTER SHELL 500 MG TABLET PO SCH (16:00)
[2018-01-07] MEDS ORDERED: DIAZEPAM 5 MG TABLET PO SCH (21:00)
[2018-01-08] MEDS ORDERED: ESOMEPRAZOLE MAG TRIHYDRATE 20 MG CAPSULE PO SCH (09:00)
[2018-01-08] MEDS ORDERED: CHOLECALCIFEROL (VIT D3) 1,000 UNITS TABLET PO SCH (09:00)
[2018-01-09] MEDS ORDERED: POLYETHYLENE GLYCOL 3350 17 GM PACKET PO SCH (09:00)
== END 2018-01-07 18:35 | DRG 871 ==
LOC: EMS 18:48 → 6N 23:00 → UNDOADMIN 23:00 → 6N 12-28 04:00 → 5S 12-28 06:27 → 5N 12-28 17:55
PROVIDERS: ADMIT Internal Medicine; ATTEND Internal Medicine
PROC: 0DHA3UZ Insertion of Feeding Device into Jejunum, Percutaneous Approach (ICD-10-PCS; 2017-12-30)
PROC: 0DP6XUZ Removal of Feeding Device from Stomach, External Approach (ICD-10-PCS; principal; 2017-12-30 12:00)
DX: A41.9 Sepsis, unspecified organism (principal); J18.9 Pneumonia, unspecified organism; E11.49 Type 2 diabetes mellitus with other diabetic neurological complication; E87.0 Hyperosmolality and hypernatremia; K94.23 Gastrostomy malfunction; E87.6 Hypokalemia; F03.90 Unspecified dementia, unspecified severity, without behavioral disturbance, psychotic disturbance, mood disturbance, and anxiety; F79 Unspecified intellectual disabilities; G80.9 Cerebral palsy, unspecified; G40.409 Other generalized epilepsy and epileptic syndromes, not intractable, without status epilepticus; I10 Essential (primary) hypertension; K21.9 Gastro-esophageal reflux disease without esophagitis; K59.00 Constipation, unspecified; Y95 Nosocomial condition; R13.10 Dysphagia, unspecified; Y83.8 Other surgical procedures as the cause of abnormal reaction of the patient, or of later complication, without mention of misadventure at the time of the procedure; Y82.8 Other medical devices associated with adverse incidents; Z87.11 Personal history of peptic ulcer disease; Z79.899 Other long term (current) drug therapy; Y92.89 Other specified places as the place of occurrence of the external cause
CPT/HCPCS: 74018; 82962; 83605; 83735; 84100; 84132; 87040; 87081; 93005; 93306; 94640; 96365; 96375; 96376; 99291; J0360; J0712; J1100; J1165; J1644; J1956; J2060; J2270; J2543; J2704; J3370; J3480; J3490; J7030; J7040; J7050; J7060

== ENCOUNTER 2023-11-22 07:03 | Inpatient (IN) | payer MEDICARE, OTHER ==
[~2023-11-22] VITALS: Ht 154.9 cm; Wt 62.7 kg
[~2023-11-22 07:03] MED LIST changes: -AMIN30LI2 GT; +BISA10SU22 PR; +CHOL100018 GT; +DIAZ-328 PO; +ESOM20CA31 GT; -HEPA500014 SQ; -INSREG SQ; -IPRA3AMP4 NEB; -LANS30TA4 GT; -METO25 GT; -MIRALAX GT; +MULT240L12 GT; +NA P266E PR; +OSCD250 GT; -ZOLP5 GT
[2023-11-22] MEDS ORDERED: 0.9% SODIUM CHLORIDE 10 ML SYRINGE IVP PRN (09:00)
[2023-11-22 09:17] LABS: BASOPHILS % (AUTO) 0.4 % (0.0-2.0); HEMOGLOBIN 14.1 g/dL (13.5-17.5); LYMPHOCYTES # (AUTO) 1.1 K/uL (1.0-4.8); MEAN CORPUSCULAR HEMOGLOBIN 33.7 pg (26.0-34.0); MEAN CORPUSCULAR HGB CONC 34.4 G/dL (31.0-37.0); MEAN CORPUSCULAR VOLUME 98 fL (80-100); MONOCYTES % (AUTO) 11.4 % (2.0-9.0); NEUTROPHILS # (AUTO) 6.7 K/uL (1.8-7.7); NEUTROPHILS % (AUTO) 74.2 % (40.0-70.0); PLATELET COUNT (AUTO) 164 K/uL (150-450); RED BLOOD CELL COUNT(AUTO) 4.19 MIL/uL (4.50-5.90); RED CELL DISTRIBUTION WIDTH 12.6 % (11.5-14.5); WHITE BLOOD COUNT (AUTO) 9.1 K/uL (4.5-11.0)
[2023-11-22] MEDS: SODIUM CHLORIDE 0.9% 1,650 ML IV ONE (09:22)
[2023-11-22] MEDS: CefTRIAXone 1 GM/DEXTROSE 50 ML IV ONE (09:22)
[2023-11-22] MEDS: LevETIRAcetam 750 MG in DEXTROSE 5%-WATER 100 ML IV ONE (09:23)
[2023-11-22 09:41] LABS: ANION GAP 8 mmol/L (8-16); CALCIUM, TOTAL 10.2 mg/dL (8.8-10.5); CARBON DIOXIDE 28 mmol/L (22-29); CHLORIDE 99 mmol/L (98-107); CREATININE 0.71 mg/dL (0.60-1.30); GLOMERULAR FILTR. RATE CALC > 60 mL/min (>60); GLUCOSE,RANDOM 114 mg/dL (70-110); POTASSIUM 3.9 mmol/L (3.5-5.1); SODIUM SERUM 135 mmol/L (136-145); UREA NITROGEN, BLOOD 17 mg/dL (7-18)
[2023-11-22 09:42] LABS: INR 1.1 (0.9-1.1)
[2023-11-22 09:47] LABS: ALANINE AMINOTRANSFERASE 22 U/L (12-78); ALBUMIN 3.1 g/dL (3.4-5.0); ALKALINE PHOSPHATASE 78 U/L (46-116); ASPARTATE AMINOTRANSFERASE 23 U/L (15-37); BILIRUBIN,TOTAL 0.2 mg/dL (0.1-1.0); TOTAL PROTEIN, SERUM 7.3 g/dL (6.4-8.2)
[2023-11-22 09:58] LABS: LACTIC ACID 2.3 mmol/L (0.4-2.0)
[2023-11-22 10:04] LABS: APPEARANCE,URINE CLEAR (CLEAR); BILIRUBIN,URINE NEGATIVE (NEGATIVE); COLOR,URINE LIGHT YELLOW (YELLOW); GLUCOSE, URINE (UA) NEGATIVE (NEGATIVE); KETONES,URINE NEGATIVE (NEGATIVE); LEUKOCYTE ESTERASE ,URINE NEGATIVE (NEGATIVE); NITRATE,URINE NEGATIVE (NEGATIVE); OCCULT BLOOD,URINE TRACE (NEGATIVE); PH,URINE 7.5 (5.0-8.0); PROTEIN,URINE TRACE mg/dL (NEGATIVE); SPECIFIC GRAVITIY, URINE 1.012 (1.003-1.030); UROBILINOGEN,URINE <=1.0 mg/dL (<=1.0)
[2023-11-22 10:26] LABS: BACTERIA,URINE None Seen /HPF (None Seen); WBC,URINE None Seen /HPF (0-5)
[2023-11-22] MEDS: AZITHROMYCIN 500 MG/NS 250 ML IV ONE (10:26)
[2023-11-22 10:48] LABS: INFLUENZA A-RTPCR,COMBO NEGATIVE (NEGATIVE); INFLUENZA B-RTPCR,COMBO NEGATIVE (NEGATIVE); RESPIRATORY SYNCYTIAL VRS-PCR NEGATIVE (NEGATIVE); SARS COVID19 RTPCR, COMBO NEGATIVE (NEGATIVE)
[2023-11-22] MEDS ORDERED: ALBU2.5V39 NEB (14:57)
[2023-11-22] MEDS ORDERED: CHOL25TA4 GT (14:57)
[2023-11-22] MEDS ORDERED: CALC-1275 GT (14:57)
[2023-11-22] MEDS ORDERED: LEVE500S10 GT (14:57)
[2023-11-22] MEDS ORDERED: BISA10SU11 PR (14:57)
[2023-11-22] MEDS ORDERED: MULT9LIQ7 GT (14:58)
[2023-11-22] MEDS ORDERED: ZOLPIDEM TARTRATE 5 MG TABLET PO PRN (15:00)
[2023-11-22] MEDS ORDERED: MORPHINE SULFATE 2 MG/ML SYRINGE IVP PRN (15:00)
[2023-11-22] MEDS ORDERED: MAGNESIUM HYDROXIDE SUSPENSION 30 ML UDCUP PO PRN (15:00)
[2023-11-22] MEDS ORDERED: BISACODYL 10 MG RECTAL RECTAL SUPPOSITORY PR PRN (15:00)
[2023-11-22] MEDS ORDERED: ONDANSETRON HCL 4 MG/2 ML VIAL IVP PRN (15:00)
[2023-11-22 15:39] VITALS: BP 139/110; PULSE 97; RESP 18; TEMP 98.9
[2023-11-22] MEDS: HEPARIN SODIUM,PORCINE 5,000 UNITS/ML VIAL SQ SCH (17:03)
[2023-11-22] MEDS: METOCLOPRAMIDE HCL 5 MG/ML 2 ML VIAL IVP SCH (17:03)
[2023-11-22] MEDS: PIPERACILLIN/TAZO 3.375 GM/D5W 50 ML IV SCH (18:07)
[2023-11-22 19:31] VITALS: BP 138/67; PULSE 84; RESP 19; TEMP 98.1
[2023-11-22] MEDS: LevETIRAcetam 100 MG/ML 5 ML SOLUTION UDCUP GT SCH (20:17)
[2023-11-22] MEDS: DOCUSATE SODIUM 100 MG CAPSULE PO SCH (20:18)
[2023-11-22 23:26] VITALS: BP 134/76; PULSE 90; RESP 18; TEMP 98.5
[2023-11-23 05:17] VITALS: BP 162/88; PULSE 91; RESP 17; TEMP 98
[2023-11-23 07:04] LABS: BASOPHILS % (AUTO) 0.3 % (0.0-2.0); EOSINOPHILS % (AUTO) 3.6 % (1.0-6.0); HEMATOCRIT 39.9 % (41-53); LYMPHOCYTES # (AUTO) 1.5 K/uL (1.0-4.8); LYMPHOCYTES % (AUTO) 18.2 % (22.0-44.0); MEAN CORPUSCULAR HEMOGLOBIN 34.8 pg (26.0-34.0); MEAN CORPUSCULAR HGB CONC 35.1 G/dL (31.0-37.0); MEAN CORPUSCULAR VOLUME 99 fL (80-100); MONOCYTES % (AUTO) 12.1 % (2.0-9.0); NEUTROPHILS # (AUTO) 5.5 K/uL (1.8-7.7); NEUTROPHILS % (AUTO) 65.8 % (40.0-70.0); PLATELET COUNT (AUTO) 163 K/uL (150-450); RED BLOOD CELL COUNT(AUTO) 4.02 MIL/uL (4.50-5.90); RED CELL DISTRIBUTION WIDTH 12.8 % (11.5-14.5); WHITE BLOOD COUNT (AUTO) 8.4 K/uL (4.5-11.0)
[2023-11-23 07:07] LABS: ANION GAP 8 mmol/L (8-16); CALCIUM, TOTAL 9.4 mg/dL (8.8-10.5); CARBON DIOXIDE 29 mmol/L (22-29); CHLORIDE 103 mmol/L (98-107); CREATININE 0.72 mg/dL (0.60-1.30); GLOMERULAR FILTR. RATE CALC > 60 mL/min (>60); GLUCOSE,RANDOM 99 mg/dL (70-110); POTASSIUM 3.9 mmol/L (3.5-5.1); SODIUM SERUM 140 mmol/L (136-145); UREA NITROGEN, BLOOD 13 mg/dL (7-18)
[2023-11-23 08:36] VITALS: BP 115/69; PULSE 72; RESP 18; TEMP 98.9
[2023-11-23 08:56] LABS: GLUCOMETER DEV NAME(LOC) ERT.5; GLUCOSE,POINT OF CARE 97 MG/DL (70-110)
[2023-11-23] MEDS: PANTOPRAZOLE SODIUM 40 MG DR TABLET PO SCH (10:11)
[2023-11-23 15:15] VITALS: BP 135/89; PULSE 90; RESP 18; TEMP 97.7
[2023-11-23 19:59] VITALS: BP 132/97; PULSE 93; RESP 19; TEMP 98.2
[2023-11-24 00:20] VITALS: BP 157/77; PULSE 89; RESP 19; TEMP 98.4
[2023-11-24 05:02] VITALS: BP 152/77; PULSE 91; RESP 17; TEMP 98.7
[2023-11-24 07:07] LABS: ANION GAP 12 mmol/L (8-16); CARBON DIOXIDE 28 mmol/L (22-29); CHLORIDE 104 mmol/L (98-107); CREATININE 0.77 mg/dL (0.60-1.30); GLOMERULAR FILTR. RATE CALC > 60 mL/min (>60); GLUCOSE,RANDOM 122 mg/dL (70-110); POTASSIUM 3.5 mmol/L (3.5-5.1); SODIUM SERUM 144 mmol/L (136-145); UREA NITROGEN, BLOOD 18 mg/dL (7-18)
[2023-11-24 07:18] LABS: BASOPHILS % (AUTO) 0.3 % (0.0-2.0); EOSINOPHILS % (AUTO) 1.3 % (1.0-6.0); HEMATOCRIT 41.7 % (41-53); HEMOGLOBIN 14.5 g/dL (13.5-17.5); LYMPHOCYTES # (AUTO) 1.3 K/uL (1.0-4.8); LYMPHOCYTES % (AUTO) 16.1 % (22.0-44.0); MEAN CORPUSCULAR HEMOGLOBIN 34.4 pg (26.0-34.0); MEAN CORPUSCULAR HGB CONC 34.6 G/dL (31.0-37.0); MEAN CORPUSCULAR VOLUME 99 fL (80-100); MONOCYTES # (AUTO) 0.9 K/uL (0.1-1.0); NEUTROPHILS # (AUTO) 5.5 K/uL (1.8-7.7); NEUTROPHILS % (AUTO) 70.3 % (40.0-70.0); PLATELET COUNT (AUTO) 168 K/uL (150-450); RED BLOOD CELL COUNT(AUTO) 4.21 MIL/uL (4.50-5.90); RED CELL DISTRIBUTION WIDTH 12.8 % (11.5-14.5); WHITE BLOOD COUNT (AUTO) 7.8 K/uL (4.5-11.0)
[2023-11-24 08:53] VITALS: BP 148/107; PULSE 95; RESP 18; TEMP 99
[2023-11-24 11:55] VITALS: BP 131/71; PULSE 87; RESP 18; TEMP 98.3
[2023-11-24 16:46] VITALS: BP 170/74; PULSE 96; RESP 18; TEMP 99
[2023-11-24 20:08] VITALS: BP 180/109; PULSE 81; RESP 19; TEMP 99
[2023-11-24] MEDS: AmLODIPine BESYLATE 5 MG TABLET PO SCH (21:26)
[2023-11-25] VITALS (8 sets, daily range): BP systolic 119–177; BP diastolic 71–100; PULSE 67–107; RESP 18–20; TEMP 96.6–99.7
[2023-11-25 05:42] LABS: ANION GAP 7 mmol/L (8-16); CALCIUM, TOTAL 10.3 mg/dL (8.8-10.5); CARBON DIOXIDE 31 mmol/L (22-29); CHLORIDE 107 mmol/L (98-107); CREATININE 0.81 mg/dL (0.60-1.30); GLOMERULAR FILTR. RATE CALC > 60 mL/min (>60); GLUCOSE,RANDOM 151 mg/dL (70-110); POTASSIUM 3.2 mmol/L (3.5-5.1); SODIUM SERUM 145 mmol/L (136-145); UREA NITROGEN, BLOOD 16 mg/dL (7-18)
[2023-11-25 05:46] LABS: BASOPHILS % (AUTO) 0.2 % (0.0-2.0); EOSINOPHILS % (AUTO) 1.3 % (1.0-6.0); HEMATOCRIT 42.8 % (41-53); LYMPHOCYTES % (AUTO) 18.3 % (22.0-44.0); MEAN CORPUSCULAR HEMOGLOBIN 34.6 pg (26.0-34.0); MEAN CORPUSCULAR HGB CONC 35.1 G/dL (31.0-37.0); MEAN CORPUSCULAR VOLUME 99 fL (80-100); MONOCYTES # (AUTO) 0.6 K/uL (0.1-1.0); MONOCYTES % (AUTO) 11.2 % (2.0-9.0); NEUTROPHILS # (AUTO) 3.9 K/uL (1.8-7.7); PLATELET COUNT (AUTO) 179 K/uL (150-450); RED BLOOD CELL COUNT(AUTO) 4.33 MIL/uL (4.50-5.90); RED CELL DISTRIBUTION WIDTH 12.6 % (11.5-14.5); WHITE BLOOD COUNT (AUTO) 5.7 K/uL (4.5-11.0)
[2023-11-25] MEDS ORDERED: CloNIDine HCL 0.1 MG TABLET PO PRN (09:30)
[2023-11-25] MEDS: POTASSIUM CHLORIDE 20 MEQ ER TABLET PO PRN (10:36)
[2023-11-25] MEDS: LACOSAMIDE 100 MG TABLET PEG SCH (11:38)
[2023-11-25] MEDS: LACOSAMIDE 200 MG in DEXTROSE 5%-WATER 100 ML IV SCH (20:51)
[2023-11-26] VITALS (7 sets, daily range): BP systolic 110–164; BP diastolic 72–95; PULSE 59–98; RESP 18; TEMP 98.2–100.1
[2023-11-26] MEDS: LORazepam 2 MG/ML VIAL IVP PRN (04:49)
[2023-11-26] MEDS ORDERED: SODIUM CHLORIDE 0.9% 250 ML IV ONE (10:58)
[2023-11-26] MEDS: ACETAMINOPHEN 325 MG TABLET PO PRN (21:16)
[2023-11-26] MEDS: DIAZEPAM 5 MG TABLET PO SCH (21:17)
[2023-11-27 00:24] VITALS: TEMP 99
[2023-11-27 02:06] LABS: GLUCOMETER DEV NAME(LOC) 5S.1B; GLUCOSE,POINT OF CARE 151 MG/DL (70-110)
[2023-11-27 04:28] VITALS: BP 138/89; PULSE 74; RESP 18; TEMP 100.7
[2023-11-27 07:49] VITALS: BP 154/92; PULSE 74; RESP 20; TEMP 98.4
[2023-11-27 11:47] VITALS: BP 158/76; PULSE 62; RESP 18; TEMP 98.5
[2023-11-27 16:57] VITALS: BP 129/75; PULSE 64; RESP 20; TEMP 98.1
[2023-11-27 20:17] VITALS: BP 138/83; PULSE 76; RESP 20; TEMP 98.6
[2023-11-28] VITALS (8 sets, daily range): BP systolic 126–177; BP diastolic 66–92; PULSE 54–97; RESP 17–22; TEMP 97.4–98.9
[2023-11-28] MEDS ORDERED: SODIUM CHLORIDE 0.9% 500 ML IV ONE (09:24)
[2023-11-28] MEDS: CloNIDine HCL 0.1 MG TABLET PO PRN (11:09)
[2023-11-29 03:58] VITALS: BP 155/84; PULSE 109; RESP 19; TEMP 98.5
[2023-11-29 04:00] VITALS: BP 149/78; PULSE 61; RESP 18; TEMP 98.5
[2023-11-29 07:57] LABS: BASOPHILS % (AUTO) 0.3 % (0.0-2.0); EOSINOPHILS % (AUTO) 0.7 % (1.0-6.0); HEMATOCRIT 42.1 % (41-53); HEMOGLOBIN 14.4 g/dL (13.5-17.5); LYMPHOCYTES # (AUTO) 1.8 K/uL (1.0-4.8); LYMPHOCYTES % (AUTO) 18.6 % (22.0-44.0); MEAN CORPUSCULAR HEMOGLOBIN 34.6 pg (26.0-34.0); MEAN CORPUSCULAR HGB CONC 34.1 G/dL (31.0-37.0); MEAN CORPUSCULAR VOLUME 102 fL (80-100); MONOCYTES % (AUTO) 10.3 % (2.0-9.0); NEUTROPHILS # (AUTO) 6.6 K/uL (1.8-7.7); NEUTROPHILS % (AUTO) 70.1 % (40.0-70.0); PLATELET COUNT (AUTO) 189 K/uL (150-450); RED BLOOD CELL COUNT(AUTO) 4.15 MIL/uL (4.50-5.90); RED CELL DISTRIBUTION WIDTH 12.8 % (11.5-14.5); WHITE BLOOD COUNT (AUTO) 9.4 K/uL (4.5-11.0)
[2023-11-29 08:05] LABS: RBC MORPHOLOGY COMMENT ABNORMAL RBC MORPH
[2023-11-29 08:18] LABS: ANION GAP 8 mmol/L (8-16); CALCIUM, TOTAL 10.6 mg/dL (8.8-10.5); CARBON DIOXIDE 33 mmol/L (22-29); CREATININE 0.88 mg/dL (0.60-1.30); GLOMERULAR FILTR. RATE CALC > 60 mL/min (>60); GLUCOSE,RANDOM 156 mg/dL (70-110); SODIUM SERUM 154 mmol/L (136-145); UREA NITROGEN, BLOOD 27 mg/dL (7-18)
[2023-11-29 08:19] LABS: CHLORIDE 113 mmol/L (98-107)
[2023-11-29 08:20] VITALS: BP 150/79; PULSE 55; RESP 18; TEMP 98.6
[2023-11-29] MEDS: AmLODIPine BESYLATE 10 MG TABLET PO SCH (08:23)
[2023-11-29] MEDS ORDERED: SODIUM CHLORIDE 0.9% 250 ML IV ONE (09:21)
[2023-11-29] MEDS: POTASSIUM CHL 10 MEQ/WATER 50 ML IV PRN (09:27)
[2023-11-29 11:55] VITALS: BP 153/70; PULSE 65; RESP 18; TEMP 98.2
[2023-11-29 16:45] VITALS: BP 160/103; PULSE 74; RESP 18; TEMP 98.7
[2023-11-29 20:00] VITALS: BP 154/70; PULSE 57; RESP 19; TEMP 101
[2023-11-30] VITALS (8 sets, daily range): BP systolic 131–191; BP diastolic 72–101; PULSE 68–108; RESP 18–22; TEMP 98.6–101.2
[2023-11-30] MEDS: DEXTROSE 5%-WATER 1,000 ML IV ONE (12:00)
[2023-11-30] MEDS: HydrALAZINE HCL 25 MG TABLET PO SCH (12:02)
[2023-11-30] MEDS: PIPERACILLIN/TAZO 3.375 GM/D5W 50 ML IV SCH (12:09)
[2023-11-30 12:23] LABS: APPEARANCE,URINE HAZY (CLEAR); BILIRUBIN,URINE NEGATIVE (NEGATIVE); COLOR,URINE YELLOW (YELLOW); GLUCOSE, URINE (UA) NEGATIVE (NEGATIVE); KETONES,URINE NEGATIVE (NEGATIVE); LEUKOCYTE ESTERASE ,URINE NEGATIVE (NEGATIVE); NITRATE,URINE NEGATIVE (NEGATIVE); OCCULT BLOOD,URINE MODERATE (NEGATIVE); PH,URINE 7.5 (5.0-8.0); PROTEIN,URINE 30-70 mg/dL (NEGATIVE); SPECIFIC GRAVITIY, URINE 1.015 (1.003-1.030); UROBILINOGEN,URINE <=1.0 mg/dL (<=1.0)
[2023-11-30 12:32] LABS: BACTERIA,URINE Many /HPF (None Seen); RBC,URINE 51-100 /HPF (0-2); WBC,URINE 0-2 /HPF (0-5)
[2023-11-30] MEDS: DOCUSATE SODIUM 100 MG CAPSULE GT SCH (21:00)
[2023-12-01] VITALS: BP 154/91; PULSE 86; RESP 18; TEMP 98
[2023-12-01 04:00] VITALS: BP 163/96; PULSE 81; RESP 18; TEMP 99.7
[2023-12-01 07:30] LABS: BASOPHILS % (AUTO) 0.3 % (0.0-2.0); EOSINOPHILS % (AUTO) 1.3 % (1.0-6.0); HEMATOCRIT 46.2 % (41-53); HEMOGLOBIN 15.8 g/dL (13.5-17.5); LYMPHOCYTES # (AUTO) 1.4 K/uL (1.0-4.8); MEAN CORPUSCULAR HEMOGLOBIN 34.3 pg (26.0-34.0); MEAN CORPUSCULAR HGB CONC 34.2 G/dL (31.0-37.0); MEAN CORPUSCULAR VOLUME 100 fL (80-100); MONOCYTES # (AUTO) 1.4 K/uL (0.1-1.0); MONOCYTES % (AUTO) 10.6 % (2.0-9.0); NEUTROPHILS # (AUTO) 9.8 K/uL (1.8-7.7); NEUTROPHILS % (AUTO) 76.8 % (40.0-70.0); PLATELET COUNT (AUTO) 191 K/uL (150-450); RED BLOOD CELL COUNT(AUTO) 4.61 MIL/uL (4.50-5.90); RED CELL DISTRIBUTION WIDTH 12.8 % (11.5-14.5); WHITE BLOOD COUNT (AUTO) 12.7 K/uL (4.5-11.0)
[2023-12-01 07:45] VITALS: BP 157/90; PULSE 84; RESP 18; TEMP 99.8
[2023-12-01 07:49] LABS: ANION GAP 8 mmol/L (8-16); CALCIUM, TOTAL 10.4 mg/dL (8.8-10.5); CARBON DIOXIDE 33 mmol/L (22-29); CHLORIDE 112 mmol/L (98-107); CREATININE 0.96 mg/dL (0.60-1.30); GLOMERULAR FILTR. RATE CALC > 60 mL/min (>60); GLUCOSE,RANDOM 125 mg/dL (70-110); SODIUM SERUM 152 mmol/L (136-145); UREA NITROGEN, BLOOD 25 mg/dL (7-18)
[2023-12-01 08:01] LABS: POTASSIUM 2.8 mmol/L (3.5-5.1)
[2023-12-01 08:20] LABS: RBC MORPHOLOGY COMMENT ABNORMAL RBC MORPH
[2023-12-01 12:29] VITALS: BP 146/88; PULSE 82; RESP 18; TEMP 98
[2023-12-01] MEDS ORDERED: MAGNESIUM SULFATE 4 GM/WATER 100 ML IV PRN (14:00)
[2023-12-01] MEDS ORDERED: MAGNESIUM OXIDE 400 MG TABLET PO PRN (14:00)
[2023-12-01] MEDS ORDERED: MAGNESIUM SULFATE 2 GM/WATER 50 ML IV PRN (14:00)
[2023-12-01] MEDS ORDERED: POTASSIUM CHLORIDE 20 MEQ ER TABLET PO PRN (14:00)
[2023-12-01] MEDS: DEXTROSE 5%-WATER 1,000 ML IV ONE (14:19)
[2023-12-01 14:28] LABS: ALBUMIN 2.8 g/dL (3.4-5.0); POTASSIUM 3.1 mmol/L (3.5-5.1)
[2023-12-01 15:28] VITALS: BP 137/78; PULSE 99; RESP 18; TEMP 98
[2023-12-01] MEDS: LACTOBACILLUS ACIDOPHILUS/BULGARICUS GRANULES PACKET PO SCH (16:14)
[2023-12-01 20:25] VITALS: BP 150/75; PULSE 75; RESP 18; TEMP 98.7
[2023-12-02 00:39] VITALS: BP 134/81; PULSE 65; RESP 18; TEMP 98.1
[2023-12-02] MEDS: POTASSIUM CHL 10 MEQ/WATER 50 ML IV PRN (01:24)
[2023-12-02 04:15] VITALS: BP 107/93; PULSE 70; RESP 18; TEMP 98.3
[2023-12-02 07:26] LABS: BASOPHILS % (AUTO) 0.5 % (0.0-2.0); EOSINOPHILS % (AUTO) 4.1 % (1.0-6.0); HEMATOCRIT 41.5 % (41-53); HEMOGLOBIN 14.1 g/dL (13.5-17.5); LYMPHOCYTES # (AUTO) 1.2 K/uL (1.0-4.8); LYMPHOCYTES % (AUTO) 11.2 % (22.0-44.0); MEAN CORPUSCULAR HEMOGLOBIN 34.2 pg (26.0-34.0); MEAN CORPUSCULAR HGB CONC 34.1 G/dL (31.0-37.0); MEAN CORPUSCULAR VOLUME 100 fL (80-100); MONOCYTES # (AUTO) 0.7 K/uL (0.1-1.0); MONOCYTES % (AUTO) 7.3 % (2.0-9.0); NEUTROPHILS # (AUTO) 7.9 K/uL (1.8-7.7); NEUTROPHILS % (AUTO) 76.9 % (40.0-70.0); PLATELET COUNT (AUTO) 170 K/uL (150-450); RED BLOOD CELL COUNT(AUTO) 4.14 MIL/uL (4.50-5.90); RED CELL DISTRIBUTION WIDTH 12.9 % (11.5-14.5); WHITE BLOOD COUNT (AUTO) 10.3 K/uL (4.5-11.0)
[2023-12-02 07:44] LABS: ANION GAP 4 mmol/L (8-16); CALCIUM, TOTAL 9.5 mg/dL (8.8-10.5); CARBON DIOXIDE 30 mmol/L (22-29); CHLORIDE 110 mmol/L (98-107); CREATININE 0.89 mg/dL (0.60-1.30); GLOMERULAR FILTR. RATE CALC > 60 mL/min (>60); GLUCOSE,RANDOM 146 mg/dL (70-110); POTASSIUM 3.7 mmol/L (3.5-5.1); SODIUM SERUM 144 mmol/L (136-145); UREA NITROGEN, BLOOD 23 mg/dL (7-18)
[2023-12-02] MEDS: HYDROCODONE/ACETAMINOPHEN 5-325 MG TABLET PO PRN (08:38)
[2023-12-02] MEDS: AmLODIPine BESYLATE 10 MG TABLET PO SCH (08:38)
[2023-12-02 08:39] LABS: RBC MORPHOLOGY COMMENT ABNORMAL RBC MORPH
[2023-12-02] MEDS: DEXTROSE 5%-WATER 1,000 ML IV SCH (08:45)
[2023-12-02 12:00] VITALS: BP 162/79; PULSE 71; TEMP 98.6
[2023-12-02] MEDS ORDERED: METO5TAB95 GT (17:39)
[2023-12-02] MEDS ORDERED: AMLO-257 GT (17:40)
[2023-12-02] MEDS ORDERED: AUGM4005L GT (17:44)
[2023-12-02] MEDS ORDERED: LACO100 GT (17:45)
== END 2023-12-02 19:00 | DRG 871 ==
LOC: EMS 07:05 → AHU 09:53 → 5S 13:51
PROVIDERS: ADMIT Internal Medicine; ATTEND Internal Medicine
DX: A41.9 Sepsis, unspecified organism (principal); E43 Unspecified severe protein-calorie malnutrition; J15.69 Pneumonia due to other Gram-negative bacteria; G82.50 Quadriplegia, unspecified; E87.1 Hypo-osmolality and hyponatremia; E11.9 Type 2 diabetes mellitus without complications; R62.50 Unspecified lack of expected normal physiological development in childhood; G40.909 Epilepsy, unspecified, not intractable, without status epilepticus; R13.10 Dysphagia, unspecified; E87.6 Hypokalemia; R62.7 Adult failure to thrive; Z20.822 Contact with and (suspected) exposure to COVID-19; I10 Essential (primary) hypertension; R80.9 Proteinuria, unspecified; R31.9 Hematuria, unspecified; Z93.1 Gastrostomy status; Z79.899 Other long term (current) drug therapy; Z87.11 Personal history of peptic ulcer disease; Z68.26 Body mass index [BMI] 26.0-26.9, adult
CPT/HCPCS: 0241U; 71045; 80048; 80053; 81001; 82040; 82962; 83605; 83735; 84132; 84145; 85025; 85610; 87040; 87086; 87186; 93005; 99285; C9254; G0378; J0456; J0696; J0712; J1644; J2060; J2543; J2765; J3480; J7030; J7040; J7050; J7060; 36415-L1; 36415-TC

== ENCOUNTER 2024-05-15 12:55 | Inpatient (IN) | payer MEDICARE, OTHER ==
[~2024-05-15] VITALS: Ht 137.2 cm; Wt 63.0 kg
[~2024-05-15 12:55] MED LIST changes: -ALBU0.212 NEB; +ALBU2.5V39 NEB; +AMLO-257 GT; +BISA10SU11 PR; -BISA10SU22 PR; +CALC-1275 GT; -CHOL100018 GT; +CHOL25TA4 GT; +DIAZ-328 GT; -DIAZ-328 PO; -GLYB2.5T5 GT; +LACO100T14 GT; -LEVE100S7 GT; +LEVE500S33 GT; +METO5TAB95 GT; -MULT240L12 GT; +MULT9LIQ7 GT; -OSCD250 GT; -PROMVCC5L GT; -SENN8.6T90 GT; +[UNRECOGNIZED DRUG - CODE] GT
[2024-05-15] MEDS ORDERED: 0.9% SODIUM CHLORIDE 10 ML SYRINGE IVP PRN (13:30)
[2024-05-15] MEDS ORDERED: PHEN50TA4 GT (13:31)
[2024-05-15] MEDS ORDERED: METF-1211 GT (13:31)
[2024-05-15] MEDS ORDERED: ACET650S24 PR (13:31)
[2024-05-15 13:36] LABS: BASOPHILS % (AUTO) 0.3 % (0.0-2.0); EOSINOPHILS % (AUTO) 0.3 % (1.0-6.0); HEMOGLOBIN 14.8 g/dL (13.5-17.5); LYMPHOCYTES # (AUTO) 0.9 K/uL (1.0-4.8); LYMPHOCYTES % (AUTO) 8.5 % (22.0-44.0); MEAN CORPUSCULAR HEMOGLOBIN 33.4 pg (26.0-34.0); MEAN CORPUSCULAR HGB CONC 34.5 G/dL (31.0-37.0); MEAN CORPUSCULAR VOLUME 97 fL (80-100); MONOCYTES # (AUTO) 1.2 K/uL (0.1-1.0); MONOCYTES % (AUTO) 11.7 % (2.0-9.0); NEUTROPHILS # (AUTO) 8.3 K/uL (1.8-7.7); NEUTROPHILS % (AUTO) 79.2 % (40.0-70.0); PLATELET COUNT (AUTO) 177 K/uL (150-450); RED BLOOD CELL COUNT(AUTO) 4.44 MIL/uL (4.50-5.90); RED CELL DISTRIBUTION WIDTH 12.9 % (11.5-14.5); WHITE BLOOD COUNT (AUTO) 10.5 K/uL (4.5-11.0)
[2024-05-15] MEDS: SODIUM CHLORIDE 0.9% 1,850 ML IV ONE (13:37)
[2024-05-15 13:43] LABS: APPEARANCE,URINE CLEAR (CLEAR); BILIRUBIN,URINE NEGATIVE (NEGATIVE); COLOR,URINE YELLOW (YELLOW); GLUCOSE, URINE (UA) NEGATIVE (NEGATIVE); KETONES,URINE NEGATIVE (NEGATIVE); LEUKOCYTE ESTERASE ,URINE NEGATIVE (NEGATIVE); NITRATE,URINE NEGATIVE (NEGATIVE); OCCULT BLOOD,URINE NEGATIVE (NEGATIVE); PROTEIN,URINE TRACE mg/dL (NEGATIVE); UROBILINOGEN,URINE <=1.0 mg/dL (<=1.0)
[2024-05-15 13:48] LABS: ANION GAP 10 mmol/L (8-16); CALCIUM, TOTAL 9.4 mg/dL (8.8-10.5); CARBON DIOXIDE 25 mmol/L (22-29); CHLORIDE 97 mmol/L (98-107); CREATININE 0.86 mg/dL (0.60-1.30); GLOMERULAR FILTR. RATE CALC > 60 mL/min (>60); GLUCOSE,RANDOM 106 mg/dL (70-110); POTASSIUM 3.9 mmol/L (3.5-5.1); SODIUM SERUM 132 mmol/L (136-145); UREA NITROGEN, BLOOD 18 mg/dL (7-18)
[2024-05-15 13:54] LABS: ALANINE AMINOTRANSFERASE 24 U/L (12-78); ALBUMIN 3.4 g/dL (3.4-5.0); ALKALINE PHOSPHATASE 79 U/L (46-116); ASPARTATE AMINOTRANSFERASE 25 U/L (15-37); BILIRUBIN,TOTAL 0.3 mg/dL (0.1-1.0); INR 1.1 (0.9-1.1); PROTHROMBIN TIME 11.6 SEC (9.4-11.6); TOTAL PROTEIN, SERUM 7.8 g/dL (6.4-8.2)
[2024-05-15 13:55] LABS: LACTIC ACID 1.8 mmol/L (0.4-2.0)
[2024-05-15] MEDS ORDERED: ONDANSETRON HCL 4 MG/2 ML VIAL IVP PRN (14:15)
[2024-05-15] MEDS ORDERED: BISACODYL 10 MG RECTAL RECTAL SUPPOSITORY PR PRN (14:15)
[2024-05-15] MEDS ORDERED: DEXTROSE 50%-WATER 25 GM/50 ML SYRINGE IVP PRN (14:15)
[2024-05-15] MEDS: PIPERACILLIN/TAZO 3.375 GM/D5W 50 ML IV ONE (14:32)
[2024-05-15] MEDS: SODIUM CHLORIDE 0.9% 1,000 ML IV ONE (14:33)
[2024-05-15] MEDS: LevETIRAcetam 1,000 MG in DEXTROSE 5%-WATER 100 ML IV SCH (14:37)
[2024-05-15 15:08] LABS: INFLUENZA A-RTPCR,COMBO NEGATIVE (NEGATIVE); INFLUENZA B-RTPCR,COMBO NEGATIVE (NEGATIVE); RESPIRATORY SYNCYTIAL VRS-PCR NEGATIVE (NEGATIVE)
[2024-05-15 15:14] LABS: SARS COVID19 RTPCR, COMBO POSITIVE (NEGATIVE)
[2024-05-15] MEDS: VANCOMYCIN 1GM/WATER(PEG/NADA) 200 ML IV ONE (15:14)
[2024-05-15] MEDS: LACOSAMIDE 100 MG in DEXTROSE 5%-WATER 100 ML IV SCH (15:14)
[2024-05-15] MEDS: HEPARIN SODIUM,PORCINE 5,000 UNITS/ML VIAL SQ SCH (16:04)
[2024-05-15] MEDS: DEXAMETHASONE SOD PHOS 4 MG/ML 5 ML VIAL IVP ONE (16:04)
[2024-05-15 18:00] VITALS: BP 110/70; PULSE 94; RESP 18; TEMP 99.5; O2SAT 96
[2024-05-15 18:30] VITALS: BP 119/74; PULSE 93; RESP 18; TEMP 99.7; O2SAT 97
[2024-05-15 18:40] VITALS: BP 110/70; PULSE 94; RESP 18; TEMP 99.5; O2SAT 96
[2024-05-15] MEDS: PIPERACILLIN/TAZO 3.375 GM/D5W 50 ML IV SCH (19:54)
[2024-05-15] MEDS: INSULIN LISPRO 100 UNITS/ML SQ PRN (21:48)
[2024-05-15 22:51] LABS: GLUCOMETER DEV NAME(LOC) 5S.1C; GLUCOSE,POINT OF CARE 149 MG/DL (70-110)
[2024-05-16] VITALS (8 sets, daily range): BP systolic 110–130; BP diastolic 61–85; PULSE 69–96; RESP 18–20; TEMP 97.3–101.1; O2SAT 94–97
[2024-05-16 06:48] LABS: ANION GAP 12 mmol/L (8-16); CALCIUM, TOTAL 8.9 mg/dL (8.8-10.5); CARBON DIOXIDE 24 mmol/L (22-29); CHLORIDE 102 mmol/L (98-107); CREATININE 0.77 mg/dL (0.60-1.30); GLOMERULAR FILTR. RATE CALC > 60 mL/min (>60); GLUCOSE,RANDOM 115 mg/dL (70-110); POTASSIUM 4.1 mmol/L (3.5-5.1); SODIUM SERUM 138 mmol/L (136-145); UREA NITROGEN, BLOOD 14 mg/dL (7-18)
[2024-05-16] MEDS: VANCOMYCIN 750 MG/WATER(PEG) 150 ML IV SCH (09:42)
[2024-05-16] MEDS: PANTOPRAZOLE SODIUM 40 MG/VIAL IVP SCH (09:42)
[2024-05-16 12:36] LABS: GLUCOMETER DEV NAME(LOC) 5S.2D; GLUCOSE,POINT OF CARE 95 MG/DL (70-110)
[2024-05-16 17:30] LABS: GLUCOMETER DEV NAME(LOC) 5S.2D; GLUCOSE,POINT OF CARE 110 MG/DL (70-110)
[2024-05-17 00:31] LABS: GLUCOMETER DEV NAME(LOC) 5S.1C; GLUCOSE,POINT OF CARE 121 MG/DL (70-110)
[2024-05-17] MEDS: ACETAMINOPHEN 325 MG TABLET PO PRN (01:57)
[2024-05-17 05:22] VITALS: BP 136/64; PULSE 87; RESP 18; TEMP 98.2; O2SAT 94
[2024-05-17 07:07] LABS: ANION GAP 9 mmol/L (8-16); CARBON DIOXIDE 26 mmol/L (22-29); CHLORIDE 103 mmol/L (98-107); CREATININE 0.95 mg/dL (0.60-1.30); GLOMERULAR FILTR. RATE CALC > 60 mL/min (>60); GLUCOSE,RANDOM 123 mg/dL (70-110); POTASSIUM 3.6 mmol/L (3.5-5.1); SODIUM SERUM 138 mmol/L (136-145); UREA NITROGEN, BLOOD 16 mg/dL (7-18); VANCOMYCIN,RANDOM 19.6 mcg/mL (25.0-50.0)
[2024-05-17 08:04] VITALS: BP 109/62; PULSE 72; RESP 16; TEMP 98.2; O2SAT 96
[2024-05-17 11:31] VITALS: BP 117/45; PULSE 91; RESP 18; TEMP 99.2; O2SAT 96
[2024-05-17] MEDS: PIPERACILLIN/TAZO 3.375 GM/D5W 50 ML IV SCH (11:53)
[2024-05-17] MEDS: REMDESIVIR 200 MG in SODIUM CHLORIDE 0.9% 250 ML IV ONE (13:30)
[2024-05-17] MEDS ORDERED: SODIUM CHLORIDE 0.9% 250 ML IV ONE (13:56)
[2024-05-17 15:10] VITALS: BP 112/51; PULSE 88; RESP 18; TEMP 98.9; O2SAT 92
[2024-05-17 20:16] LABS: GLUCOMETER DEV NAME(LOC) 5N.1D; GLUCOSE,POINT OF CARE 125 MG/DL (70-110)
[2024-05-17 20:26] LABS: GLUCOMETER DEV NAME(LOC) 5S.1C; GLUCOSE,POINT OF CARE 121 MG/DL (70-110)
[2024-05-17 20:26] LABS: GLUCOMETER DEV NAME(LOC) 5S.1C; GLUCOSE,POINT OF CARE 108 MG/DL (70-110)
[2024-05-17 20:28] VITALS: BP 124/65; PULSE 76; RESP 18; TEMP 99.7; O2SAT 93
[2024-05-18] VITALS (7 sets, daily range): BP systolic 97–135; BP diastolic 67–74; PULSE 71–97; RESP 1–19; TEMP 97.9–101.1; O2SAT 93–97
[2024-05-18 00:55] LABS: GLUCOMETER DEV NAME(LOC) 5S.1C; GLUCOSE,POINT OF CARE 122 MG/DL (70-110)
[2024-05-18 07:25] LABS: GLUCOMETER DEV NAME(LOC) 5S.1C; GLUCOSE,POINT OF CARE 127 MG/DL (70-110)
[2024-05-18 07:48] LABS: ALANINE AMINOTRANSFERASE 17 U/L (12-78); ALBUMIN 2.4 g/dL (3.4-5.0); ALKALINE PHOSPHATASE 58 U/L (46-116); ANION GAP 9 mmol/L (8-16); ASPARTATE AMINOTRANSFERASE 30 U/L (15-37); BILIRUBIN,TOTAL 0.2 mg/dL (0.1-1.0); CALCIUM, TOTAL 8.6 mg/dL (8.8-10.5); CARBON DIOXIDE 25 mmol/L (22-29); CHLORIDE 105 mmol/L (98-107); CREATININE 1.03 mg/dL (0.60-1.30); GLOMERULAR FILTR. RATE CALC > 60 mL/min (>60); GLUCOSE,RANDOM 125 mg/dL (70-110); POTASSIUM 3.7 mmol/L (3.5-5.1); SODIUM SERUM 139 mmol/L (136-145); TOTAL PROTEIN, SERUM 6.1 g/dL (6.4-8.2); UREA NITROGEN, BLOOD 19 mg/dL (7-18)
[2024-05-18] MEDS: DEXAMETHASONE SOD PHOS 4 MG/ML VIAL IVP SCH (08:44)
[2024-05-18] MEDS: REMDESIVIR 100 MG in SODIUM CHLORIDE 0.9% 250 ML IV SCH (13:16)
[2024-05-19] MEDS: LORazepam 2 MG/ML VIAL IVP PRN (02:57)
[2024-05-19 03:37] VITALS: BP 155/86; PULSE 105; RESP 20; TEMP 97.6; O2SAT 100
[2024-05-19 06:41] LABS: GLUCOMETER DEV NAME(LOC) 5S.1C; GLUCOSE,POINT OF CARE 129 MG/DL (70-110)
[2024-05-19 07:00] LABS: ALANINE AMINOTRANSFERASE 27 U/L (12-78); ALBUMIN 2.7 g/dL (3.4-5.0); ALKALINE PHOSPHATASE 53 U/L (46-116); ANION GAP 7 mmol/L (8-16); ASPARTATE AMINOTRANSFERASE 33 U/L (15-37); BILIRUBIN,TOTAL 0.2 mg/dL (0.1-1.0); CALCIUM, TOTAL 8.7 mg/dL (8.8-10.5); CARBON DIOXIDE 27 mmol/L (22-29); CHLORIDE 105 mmol/L (98-107); CREATININE 0.79 mg/dL (0.60-1.30); GLOMERULAR FILTR. RATE CALC > 60 mL/min (>60); GLUCOSE,RANDOM 137 mg/dL (70-110); POTASSIUM 3.7 mmol/L (3.5-5.1); SODIUM SERUM 139 mmol/L (136-145); TOTAL PROTEIN, SERUM 6.4 g/dL (6.4-8.2); UREA NITROGEN, BLOOD 16 mg/dL (7-18)
[2024-05-19 08:48] VITALS: BP 148/73; PULSE 71; RESP 20; TEMP 98.4; O2SAT 97
[2024-05-19 12:00] LABS: GLUCOMETER DEV NAME(LOC) 5S.2D; GLUCOSE,POINT OF CARE 157 MG/DL (70-110)
[2024-05-19 12:58] VITALS: BP 135/94; PULSE 78; RESP 20; TEMP 97.9; O2SAT 97
[2024-05-19 14:16] LABS: GLUCOMETER DEV NAME(LOC) 5S.2D; GLUCOSE,POINT OF CARE 144 MG/DL (70-110)
[2024-05-19 20:05] VITALS: BP 105/52; PULSE 108; RESP 19; TEMP 98.4; O2SAT 94
[2024-05-19 20:46] LABS: GLUCOMETER DEV NAME(LOC) 5S.1C; GLUCOSE,POINT OF CARE 163 MG/DL (70-110)
[2024-05-20] VITALS (7 sets, daily range): BP systolic 100–158; BP diastolic 52–90; PULSE 57–81; RESP 16–20; TEMP 96.8–98.2; O2SAT 94–97
[2024-05-20 01:30] LABS: GLUCOMETER DEV NAME(LOC) 5S.2D; GLUCOSE,POINT OF CARE 123 MG/DL (70-110)
[2024-05-20] MEDS ORDERED: SODIUM CHLORIDE 0.9% 500 ML IV ONE (08:52)
[2024-05-20 09:34] LABS: ALANINE AMINOTRANSFERASE 42 U/L (12-78); ALKALINE PHOSPHATASE 61 U/L (46-116); ANION GAP 7 mmol/L (8-16); ASPARTATE AMINOTRANSFERASE 84 U/L (15-37); BILIRUBIN,TOTAL 0.3 mg/dL (0.1-1.0); CALCIUM, TOTAL 9.1 mg/dL (8.8-10.5); CARBON DIOXIDE 28 mmol/L (22-29); CHLORIDE 104 mmol/L (98-107); CREATININE 0.82 mg/dL (0.60-1.30); GLOMERULAR FILTR. RATE CALC > 60 mL/min (>60); GLUCOSE,RANDOM 114 mg/dL (70-110); POTASSIUM 3.7 mmol/L (3.5-5.1); SODIUM SERUM 139 mmol/L (136-145); TOTAL PROTEIN, SERUM 7.2 g/dL (6.4-8.2); UREA NITROGEN, BLOOD 17 mg/dL (7-18)
[2024-05-20 09:46] LABS: GLUCOMETER DEV NAME(LOC) 5S.1C; GLUCOSE,POINT OF CARE 104 MG/DL (70-110)
[2024-05-20 12:56] LABS: GLUCOMETER DEV NAME(LOC) 5S.2D; GLUCOSE,POINT OF CARE 123 MG/DL (70-110)
[2024-05-20 18:56] LABS: GLUCOMETER DEV NAME(LOC) 5S.2D; GLUCOSE,POINT OF CARE 162 MG/DL (70-110)
[2024-05-21 04:20] VITALS: BP 136/84; PULSE 78; RESP 19; TEMP 97.2; O2SAT 95
[2024-05-21 07:13] LABS: ALANINE AMINOTRANSFERASE 64 U/L (12-78); ALBUMIN 2.6 g/dL (3.4-5.0); ALKALINE PHOSPHATASE 53 U/L (46-116); ANION GAP 10 mmol/L (8-16); ASPARTATE AMINOTRANSFERASE 105 U/L (15-37); BILIRUBIN,TOTAL 0.3 mg/dL (0.1-1.0); CALCIUM, TOTAL 9.2 mg/dL (8.8-10.5); CARBON DIOXIDE 25 mmol/L (22-29); CHLORIDE 102 mmol/L (98-107); CREATININE 0.81 mg/dL (0.60-1.30); GLOMERULAR FILTR. RATE CALC > 60 mL/min (>60); GLUCOSE,RANDOM 126 mg/dL (70-110); POTASSIUM 3.8 mmol/L (3.5-5.1); SODIUM SERUM 137 mmol/L (136-145); TOTAL PROTEIN, SERUM 7.4 g/dL (6.4-8.2); UREA NITROGEN, BLOOD 19 mg/dL (7-18)
[2024-05-21 08:19] VITALS: BP 156/86; PULSE 81; RESP 18; TEMP 98; TEMP 98.9; O2SAT 96
[2024-05-21 08:30] LABS: GLUCOMETER DEV NAME(LOC) 5S.2D; GLUCOSE,POINT OF CARE 139 MG/DL (70-110)
[2024-05-21 08:30] LABS: GLUCOMETER DEV NAME(LOC) 5S.2D; GLUCOSE,POINT OF CARE 145 MG/DL (70-110)
[2024-05-21] MEDS ORDERED: SODIUM CHLORIDE 0.9% 1,000 ML ONE (08:57)
[2024-05-21 11:12] VITALS: BP 152/102; PULSE 122; RESP 19; TEMP 99.2; O2SAT 95
[2024-05-21 15:20] VITALS: BP 199/72; PULSE 113; RESP 18; TEMP 98.5; O2SAT 96
[2024-05-21 17:10] LABS: GLUCOMETER DEV NAME(LOC) 5S.2D; GLUCOSE,POINT OF CARE 145 MG/DL (70-110)
[2024-05-21 20:21] LABS: GLUCOMETER DEV NAME(LOC) 5S.1C; GLUCOSE,POINT OF CARE 144 MG/DL (70-110)
[2024-05-21 20:32] VITALS: BP 126/63; PULSE 71; RESP 18; TEMP 97.6; O2SAT 95
[2024-05-22] VITALS: BP 141/74; PULSE 65; RESP 18; O2SAT 96
[2024-05-22 04:00] VITALS: BP 132/70; PULSE 76; RESP 18; TEMP 97.9; O2SAT 95
[2024-05-22 05:31] LABS: GLUCOMETER DEV NAME(LOC) 5S.1C; GLUCOSE,POINT OF CARE 119 MG/DL (70-110)
[2024-05-22 07:59] LABS: ANION GAP 10 mmol/L (8-16); CARBON DIOXIDE 26 mmol/L (22-29); CHLORIDE 103 mmol/L (98-107); CREATININE 0.84 mg/dL (0.60-1.30); GLOMERULAR FILTR. RATE CALC > 60 mL/min (>60); GLUCOSE,RANDOM 116 mg/dL (70-110); SODIUM SERUM 139 mmol/L (136-145); UREA NITROGEN, BLOOD 22 mg/dL (7-18); VANCOMYCIN,RANDOM 22.6 mcg/mL (25.0-50.0)
[2024-05-22 08:00] VITALS: BP 153/90; PULSE 72; RESP 18; TEMP 98; O2SAT 95
[2024-05-22] MEDS: VANCOMYCIN 1.25 GM/WATER(PEG) 250 ML IV SCH (09:31)
[2024-05-22 12:00] VITALS: BP 129/79; PULSE 70; RESP 18; TEMP 98.3; O2SAT 95
[2024-05-22 14:09] LABS: BASOPHILS % (AUTO) 0.5 % (0.0-2.0); EOSINOPHILS % (AUTO) 0.2 % (1.0-6.0); HEMATOCRIT 43.6 % (41-53); HEMOGLOBIN 14.4 g/dL (13.5-17.5); LYMPHOCYTES # (AUTO) 2.5 K/uL (1.0-4.8); LYMPHOCYTES % (AUTO) 18.7 % (22.0-44.0); MEAN CORPUSCULAR HEMOGLOBIN 32.7 pg (26.0-34.0); MEAN CORPUSCULAR VOLUME 99 fL (80-100); MONOCYTES # (AUTO) 1.6 K/uL (0.1-1.0); MONOCYTES % (AUTO) 12.3 % (2.0-9.0); NEUTROPHILS # (AUTO) 9.1 K/uL (1.8-7.7); NEUTROPHILS % (AUTO) 68.3 % (40.0-70.0); PLATELET COUNT (AUTO) 213 K/uL (150-450); RED BLOOD CELL COUNT(AUTO) 4.41 MIL/uL (4.50-5.90); RED CELL DISTRIBUTION WIDTH 13.7 % (11.5-14.5); WHITE BLOOD COUNT (AUTO) 13.3 K/uL (4.5-11.0)
[2024-05-22 16:00] VITALS: BP 149/80; PULSE 71; RESP 19; TEMP 97.6; O2SAT 95
[2024-05-22 17:46] LABS: GLUCOMETER DEV NAME(LOC) 5S.2D; GLUCOSE,POINT OF CARE 142 MG/DL (70-110)
[2024-05-22 17:46] LABS: GLUCOMETER DEV NAME(LOC) 5S.2D; GLUCOSE,POINT OF CARE 119 MG/DL (70-110)
[2024-05-22 17:46] LABS: GLUCOMETER DEV NAME(LOC) 5S.2D; GLUCOSE,POINT OF CARE 176 MG/DL (70-110)
[2024-05-22 20:00] VITALS: BP 133/76; PULSE 65; RESP 18; TEMP 97.5; O2SAT 97
[2024-05-23 00:30] VITALS: BP 109/62; PULSE 60; RESP 18; TEMP 97.7; O2SAT 96
[2024-05-23 05:26] VITALS: BP 150/87; PULSE 75; RESP 16; TEMP 98.1; O2SAT 96
[2024-05-23 07:29] LABS: ANION GAP 11 mmol/L (8-16); CALCIUM, TOTAL 9.3 mg/dL (8.8-10.5); CARBON DIOXIDE 21 mmol/L (22-29); CHLORIDE 103 mmol/L (98-107); CREATININE 0.76 mg/dL (0.60-1.30); GLOMERULAR FILTR. RATE CALC > 60 mL/min (>60); GLUCOSE,RANDOM 122 mg/dL (70-110); POTASSIUM 4.2 mmol/L (3.5-5.1); SODIUM SERUM 135 mmol/L (136-145); UREA NITROGEN, BLOOD 24 mg/dL (7-18)
[2024-05-23 08:22] VITALS: BP 140/93; PULSE 92; RESP 18; TEMP 98.1; O2SAT 97
[2024-05-23 11:21] LABS: GLUCOMETER DEV NAME(LOC) 5S.2D; GLUCOSE,POINT OF CARE 126 MG/DL (70-110)
[2024-05-23 11:21] LABS: GLUCOMETER DEV NAME(LOC) 5S.2D; GLUCOSE,POINT OF CARE 144 MG/DL (70-110)
[2024-05-23 13:12] LABS: HEMATOCRIT 45.3 % (41-53); MEAN CORPUSCULAR HEMOGLOBIN 32.7 pg (26.0-34.0); MEAN CORPUSCULAR HGB CONC 33.2 G/dL (31.0-37.0); MEAN CORPUSCULAR VOLUME 99 fL (80-100); PLATELET COUNT (AUTO) 252 K/uL (150-450); RED BLOOD CELL COUNT(AUTO) 4.59 MIL/uL (4.50-5.90); RED CELL DISTRIBUTION WIDTH 13.4 % (11.5-14.5); WHITE BLOOD COUNT (AUTO) 12.9 K/uL (4.5-11.0)
[2024-05-23 14:37] LABS: BAND NEUTROPHILS % (MANUAL) 2 % (0-5); LYMPHOCYTES % (MANUAL) 16 % (22-44); MONOCYTES % (MANUAL) 11 % (2-9); RBC MORPHOLOGY COMMENT NORMAL RBC MORPH; SEGMENTED NEUTROPHILS % 71 % (40-70); TOTAL CELLS COUNTED 100
[2024-05-23 17:09] VITALS: BP 128/79; PULSE 70; RESP 20; TEMP 98; O2SAT 92
[2024-05-23 21:40] LABS: GLUCOMETER DEV NAME(LOC) 5S.2D; GLUCOSE,POINT OF CARE 152 MG/DL (70-110)
== END 2024-05-23 17:40 | disposition home or self-care (01) | DRG 871 ==
LOC: EMS 12:55 → EDH 14:07 → 5S 18:21
PROVIDERS: ADMIT Internal Medicine; ATTEND Internal Medicine
PROC: XW033E5 Introduction of Remdesivir Anti-infective into Peripheral Vein, Percutaneous Approach, New Technology Group 5 (ICD-10-PCS; principal; 2024-05-17)
DX: A41.89 Other specified sepsis (principal); G80.0 Spastic quadriplegic cerebral palsy; U07.1 COVID-19; J12.82 Pneumonia due to coronavirus disease 2019; R13.10 Dysphagia, unspecified; E11.9 Type 2 diabetes mellitus without complications; G40.909 Epilepsy, unspecified, not intractable, without status epilepticus; E86.0 Dehydration; Z87.11 Personal history of peptic ulcer disease
CPT/HCPCS: 0241U; 71045; 80048; 80053; 80202; 81003; 82962; 83605; 84145; 85025; 85610; 87040; 93005; 97162; 97166; 97530; 99285; C9113; C9254; J0712; J1100; J1644; J2060; J2543; J7030; J7040; J7050; J7060; 36415-L1; 36415-TC